=== PATIENT | male | born 1935 | race Caucasian/White ===

== ENCOUNTER 2019-03-31 08:04 | Inpatient (IN) | payer MEDICARE, SELFPAY ==
[2018-07-07 09:25] VITALS: BMI 27.3
[2019-03-19 13:08] VITALS: BP 141/81; PULSE 77; RESP 17; TEMP 36.6; O2SAT 96; BMI 27.6
[2019-03-19 14:00] LABS: Absolute Lymphocyte Count 2.08 X10^3/uL (0.83-4.51); Absolute Neutrophil Count 4.7 X10^3/uL (2.0-7.7); Basophil# 0.03 X10^3/uL; Basophil% 0.4 % (0-1); Eosinophils% 3.8 % (0-5); Hematocrit 41.2 % (40-54); Hemoglobin 13.1 g/dL (13.0-16.5); Lymphocyte # 2.08 X10^3/ul (4.0); Lymphocyte % 26.6 % (19-41); Mean Corp Hgb Conc 31.8 g/dL (32-36); Mean Corpuscular Hgb 27.5 pg (27.0-32.0); Mean Corpuscular Volume 86.6 fL (80-94); Mean Platelet Vol. 10.1 fl (6.2-12.0); Monocyte# 0.71 X10^3/uL; Monocyte% 9.1 % (0-10); NRBC Flagged by Analyzer 0 % (0-5); Neutrophil # 4.68 X10^3/uL (2.7-7.7); Neutrophil % 59.8 % (47-70); Platelet Count 183 K/mm3 (150-450); RBC Distribution Width SD 41.4 fl (35.1-43.9); Red Blood Count 4.76 M/mm3 (4.6-6.2); White Blood Count 7.8 K/mm3 (4.4-11.0)
[2019-03-19 14:13] LABS: Anion Gap 8 (5-15); BUN 18 mg/dL (7-18); BUN/Creat Ratio 15.3 RATIO (10-20); Calcium,Total 9.5 mg/dL (8.5-10.1); Chloride 99 mmol/L (98-107); Creatinine, Serum 1.18 mg/dL (0.70-1.30); EST Glomerular Filtration Rate 63 mL/min (>60); Est Glom Filt Rate - Afr Amer 76 mL/min (>60); Estimated Creatinine Clearance 50.52 ml/min; Glucose 158 mg/dL (74-106); Potassium 4.7 mmol/L (3.5-5.1); Sodium Level 131 mmol/L (136-145)
[2019-03-29 13:56] LABS: Sodium Level 133 mmol/L (136-145)
[2019-03-31] VITALS (12 sets, daily range): BP systolic 127–147; BP diastolic 73–87; PULSE 48–89; RESP 16–18; TEMP 35.5–36.7; O2SAT 95–100; BMI 27.6
[2019-03-31] MEDS: Acetaminophen 500 MG Tablet 1000 MG PO ×2 (08:52→22:34)
[2019-03-31] MEDS: Gabapentin 600 MG Tablet PO (08:53)
[2019-03-31] MEDS: Magnesium Sulfate 4gm/100mL 4 GM/100 ML IV.SOLN. IV (08:54)
[2019-03-31] MEDS: Lactated Ringers 1,000 ML 75 ML IV (09:02)
[2019-03-31 09:20] LABS: Bedside Glucose 189 mg/dL (70-110)
[2019-03-31] MEDS: Insulin Lispro 100 UNIT/ML INSULN.PEN SC ×3 (09:29→22:34)
[2019-03-31] MEDS: Cefazolin 2 GM in 0.9% Normal Saline 100 ML IV (11:04)
[2019-03-31] MEDS: dexAMETHasone 10 MG/ML Vial IV (11:37)
--- NOTE | 2019-03-31 12:48 | PCM.OPRPT ---
Report of Operation Date of Procedure: 03/31/19 Pre-Operative Diagnosis: Left shoulder cuff tear arthropathy Post-Operative Diagnosis: Left shoulder cuff tear arthropathy Surgery/Procedure Performed:: Left reverse total shoulder replacement double cut off saw operator: Jaylan Quezada Type of Anesthesia:: General Anesthesiologist: Evelio Mariscal Special Medications: 2 g Ancef, 1 g TXA at incision, 1 g TXA closure, 10 mg Decadron, joint cocktail (5 mg Duramorph, 30 mL of 0.5% Ropivicaine, 1000 units of epinephrine, 30 mg of Toradol), vancomycin IV Specimen's removed: Bony cuts Estimated Blood Loss (mL): 150 Fluids Replaced: 800 ml crystalloid Description of Procedure: Components used 1. Scott reunion glenoid baseplate 2. Plummer reunion 36 mm, 2 mm lateralized and 2 mm eccentric Glenosphere 3. Scott 36 mm, 4 mm humeral liner 4. Scott reunion humeral tray 4mm 5. Reunion short press-fit 15 mm size stem Brief history/Operative indications: 83 yo M with history of l shoulder pain and cuff tear arthropathy. Patient failed conservative measures as mentioned in the H&P. After discussion of risk and benefits of reverse total shoulder replacement including but not limited to blood loss, DVTs, PEs, nerve vessel damage, infection, general risk of anesthesia including loss of life, instability and stiffness patient demonstrating understanding wish to proceed was able to sign informed consent. Medical clearance was obtained. Procedure: On the date of the procedure, patient's L upper extremity was marked in the preoperative area. Patient was taken back to the operating room where they were placed on the table in the supine position. Anesthesia assumed control of the C-spine and airway, then administered anesthetic. All bony prominences were identified well-padded, the head was secured and the patient was placed in the beachchair position at about 35? inclination. Anesthesia remained in control of the C-spine airway throughout the remainder of the procedure. Patient was then appropriately fastened to the table and the L upper extremity was prepped in a sterile fashion. The surgeons then scrubbed. Upon reentering the room, the L upper extremity was draped in a sterile fashion and the incision was marked out. Timeout was called, everyone agreed upon the side, the site, the procedure to be performed, patient identity and antibiotics given. Incision was taken down through skin and subcutaneous tissue, fat down to fascia. The stripe of the deltopectoral interval and cephalic vein were identified and blunt dissection was used to retract the deltoid. The cephalic vein was retracted laterally. Clavipectoral fascia was then incised and a cobra retractor was placed in the wound. The proximal one third of the pectoralis major insertion was released. Pectoralis tendon insertion was used to tenodesed the biceps tendon which was identified in the bicipital groove. Tenodesis was done with #1 Vicryl. Proximally we followed the biceps tendon after transecting it into the rotator interval. The rotator interval was split and the arm was externally rotated. The split was 1 cm medial to the bicipital groove. Subscapularis tendon was released. We released down the anterior portion of the humeral head and a calix elevator was used to release the inferior portion of the humeral head. The arm was externally rotated and the shoulder was dislocated. The humeral head was cut in anatomic version using the articular surface. Once his humeral head cut was made humerus was retracted out of the way and the glenoid was exposed. After exposing the glenoid, the labrum and the remaining proximal biceps were debrided. At this time we are able to view the entire outer edge of the glenoid. A central pin was placed we sequentially reamed over this central pin to 36mm. Once this was completed the central pedicle was drilled. The glenoid baseplate was impacted into place. Wound was closely irrigated out with normal saline we then drilled sequentially for 2 screws. Screws were placed superiorly and inferiorly and tightened down the screws. 36 mm glenosphere was impacted into place engaging the Mallory taper. Attention was then turned towards the humerus. The humerus was again externally rotated exposing the proximal portion of the humerus. Central canal finder was then used to open up the canal. We reamed to a 15mm reamer. We then broached to a 15mm stem. We trialed the 4mm liner, with the 4mm humeral baseplate. We obtained an adequate reduction at this time with a nice stable shoulder. Good internal rotation to the gluteus, forward elevation to 140?, external rotation to 20?. Final components were then assembled on the back table, trials were removed and the wound was copiously irrigated with normal saline after dislocating the shoulder. Once the final components were assembled they were impacted into place. Shoulder was then reduced and found to be stable with good range of motion. Subscapularis tendon repaired using #2 FiberWire. The wound was then lavaged for one minute with Irricept then copiously irrigated out with a 1 L normal saline lavage. The deltopectoral fascia was then closed using #1 Vicryl skin was closed using 2-0 Vicryl interrupted sutures and final skin closure was done with 3-0 Monocryl. Steri-Strips are placed for final skin closure. Sterile dressing was placed patient was then placed in a sling and awakened by anesthesia. Patient was then transferred to the PACU for recovery. Postoperative plan: Patient will be admitted to the hospital overnight. They will get physical therapy starting in 2 weeks with normal postoperative regimen. Patient will be placed on 325 mg aspirin daily for DVT prophylaxis. The first postoperative appointment will be in 2 weeks for wound check and initiation of phase 1 physical therapy. Grafts/Implants Used: Plummer reunion reverse total shoulder - Complications No intraoperative complications - Admit VTE Documentation VTE Present on Admission: No VTE Mechan Device Prophylaxis: SCD's, Knee High NOREEN Hose VTE Pharm Prophylaxis ordered?: Yes
[2019-03-31] MEDS: Lactated Ringers 1,000 ML 999 ML IV (13:15)
[2019-03-31 13:50] LABS: Bedside Glucose 135 mg/dL (70-110)
--- NOTE | 2019-03-31 13:52 | RAD_ITS ---
STUDY: X-RAY - LEFT SHOULDER REASON FOR EXAM: Male, 83 years old. Left shoulder replacement. TECHNIQUE: 2 view(s) of the shoulder. COMPARISON: None. FINDINGS: The patient is status post reverse shoulder replacement. There is good alignment. Postoperative soft tissue changes. RAD/Shoulder min 2 Views IMPRESSION: Status post left reverse shoulder replacement. There is good alignment. Postoperative soft tissue changes. Electronically Signed: Daniel Greenberg, at 14:22 EDT , Service support ,
[2019-03-31] MEDS: Lactated Ringers 1,000 ML 125 ML IV ×2 (14:30→18:44)
[2019-03-31] MEDS: metFORMIN HCl 1,000 MG Tablet 1000 MG PO (17:07)
[2019-03-31] MEDS: Ensure Surgery 237 ML LIQUID PO (17:08)
[2019-03-31 17:56] LABS: Bedside Glucose 179 mg/dL (70-110)
[2019-03-31] MEDS: Cefazolin 1 GM/50 ML BAG IV (18:46)
[2019-03-31] MEDS: Senna/Docusate Sodium 1 Tablet 2 TABLET PO (22:34)
[2019-03-31 23:51] LABS: Bedside Glucose 216 mg/dL (70-110)
[2019-04-01 00:30] VITALS: BP 128/90; PULSE 98; RESP 16; TEMP 36.6; O2SAT 95
[2019-04-01] MEDS: Famotidine 20 MG Tablet PO (01:55)
[2019-04-01] MEDS: Pantoprazole Sodium 20 MG Tablet PO (01:57)
[2019-04-01] MEDS: Ondansetron 4 MG/2 ML Vial IV (02:57)
[2019-04-01] MEDS: Cefazolin 1 GM/50 ML BAG IV (03:01)
[2019-04-01] MEDS: proMETHazine 25 MG/ML Syringe 12.5 MG IM (03:46)
[2019-04-01 05:31] LABS: Hemoglobin 12.1 g/dL (13.0-16.5); Mean Corp Hgb Conc 31.8 g/dL (32-36); Mean Corpuscular Hgb 27.1 pg (27.0-32.0); Mean Corpuscular Volume 85.2 fL (80-94); Mean Platelet Vol. 10.4 fl (6.2-12.0); Platelet Count 158 K/mm3 (150-450); RBC Distribution Width CV 12.9 % (11.6-14.6); RBC Distribution Width SD 39.9 fl (35.1-43.9); Red Blood Count 4.46 M/mm3 (4.6-6.2)
[2019-04-01 05:52] LABS: Anion Gap 9 (5-15); BUN 22 mg/dL (7-18); BUN/Creat Ratio 20.4 RATIO (10-20); Calcium,Total 8.6 mg/dL (8.5-10.1); Chloride 99 mmol/L (98-107); Creatinine, Serum 1.08 mg/dL (0.70-1.30); EST Glomerular Filtration Rate 69 mL/min (>60); Est Glom Filt Rate - Afr Amer 84 mL/min (>60); Glucose 173 mg/dL (74-106); Potassium 4.6 mmol/L (3.5-5.1); Sodium Level 132 mmol/L (136-145)
[2019-04-01 06:30] VITALS: BP 123/62; PULSE 72; RESP 16; TEMP 36.9; O2SAT 91
[2019-04-01] MEDS: Acetaminophen 500 MG Tablet 1000 MG PO (06:38)
[2019-04-01] MEDS: Insulin Lispro 100 UNIT/ML INSULN.PEN SC (06:39)
[2019-04-01 07:56] LABS: Bedside Glucose 196 mg/dL (70-110)
--- NOTE | 2019-04-01 08:55 | PCM.PN.ORT ---
Subjective: The patient was sitting in bed upon examination. Patient denies any chest pain, shortness of breath, dizziness, lightheadedness, nausea or vomiting, or calf pain. Pain is controlled on medications. No adverse overnight events. Patient states pain is very well controlled on his left shoulder. Patient did overnight have nausea and vomiting but feels much better today since resuming his meds. Patient also had to be straight cathed due to urinary retention. Patient denies any prostate or urinary complications at home and has not treated. However upon discussion, patient does state he occasionally wakes up at night to use the restroom. Objective: Vital signs stable, afebrile Dressing is clean, dry, intact Ultra-sling fitting appropriately Sensation intact to axillary, radial, median, and ulnar distribution Motor intact to AIN, PIN, and ulnar nerve - Physical Exam General: Alert, Oriented x3, Cooperative, No apparent distress Vital Signs Temp Pulse Resp BP Pulse Ox 98.4 F 72 16 123/62 H 91 04/01/19 06:30 04/01/19 06:30 04/01/19 06:30 04/01/19 06:30 04/01/19 06:30 Oxygen Flow Rate (L/min) 6 Oxygen Delivery Method Room Air Weight: 89.7 kg Body Mass Index (BMI) 27.6 Finger Stick Blood Glucose 135 Intake and Output for Last 24 Hours 03/30/19 03/31/19 04/01/19 23:59 23:59 23:59 Intake Total 3815.84 / 4115.84 1566.67 / 1566.67 Output Total 1550 / 1550 Balance 3815.84 / 3065.84 16.67 / 16.67 Laboratory Tests Past 24 Hrs 04/01/19 04/01/19 04:48 04:48 WBC 14.0 H RBC 4.46 L Hgb 12.1 L Hct 38.0 L MCV 85.2 MCH 27.1 MCHC 31.8 L RDW Std Deviation 39.9 RDW Coeff of Brianna 12.9 Plt Count 158 MPV 10.4 Sodium 132 L Potassium 4.6 Chloride 99 Carbon Dioxide 24.0 Anion Gap 9 BUN 22 H Creatinine 1.08 Estim Creat Clear Calc 55.20 Est GFR (MDRD) Af Amer 84 Est GFR (MDRD) Non-Af 69 BUN/Creatinine Ratio 20.4 H Glucose 173 H Calcium 8.6 POC Glucose 04/01/19 03/31/19 03/31/19 06:34 22:31 17:01 POC Glucose 196 H 216 H 179 H 03/31/19 03/31/19 13:48 08:34 POC Glucose 135 H 189 H Medical Necessity - Tobacco Use Smoking Status: Former smoker Assessment/Plan All Active Problems (Last Reviewed 07/07/18 @ 09:47 by Zain Meyer MD) History of total hip replacement (Resolved) 1. S/P left reverse total shoulder arthroplasty POD #1 2. Continue Pain Medications: Tylenol and OxyIR 3. DVT Prophylaxis: Aspirin 325 mg once daily 2 weeks postoperatively 4. PT/OT: No range of motion left shoulder. We will begin outpatient formal physical therapy 2 weeks postoperatively to begin phase 1. Okay to work on elbow, wrist, hand range of motion and pendulum exercises only. Continue with UltraSling at all times. 5. H & H: 12.1/38.0, asymptomatic 6. Reactive leukocytosis: Currently 14.0, afebrile. Patient did receive Decadron intraoperatively 7. Urinary retention: Patient did require straight catheterization yesterday. Discussed with nursing and they are going to bladder scan. Patient does not have significant history of any urinary retention or prostate issues. If patient is able to urinate on his own plan will be for discharge home today. 8. Encouraged Incentive Spirometry 9. Disposition: Plan will be for possible discharge home today if patient is able to urinate on his own. If he has not, medication may need to be required. I did discuss with the patient I recommend he follow-up with his primary care physician with regards to the postoperative urinary retention. Patient states his pain is very well controlled and does not want to use any narcotic medication. I explained to him that I will give a prescription but he does not have to fill it if it is not required. He will follow-up per postop instructions. He will begin postoperative physical therapy after his 2-week visit.
[2019-04-01 08:59] VITALS: PULSE 80
--- NOTE | 2019-04-01 09:05 | PCM.DC.ORTHO ---
Discharge Diet: 1800 Calorie Control Diet Discharge Activity: May Not Drive May shower in (days): 1 - Turn dressing away from water Ice area for (Minutes): 20 - Every 1-2 hours while awake Weight Bearing Status: No weight bearing - Left upper extremity Call your doctor if your incision/area has: Continuous Slow Oozing, Sudden Increased Bleeding, Increased Pain/ Swelling, Increased Redness, Foul Smelling Discharge Call your doctor if you observe: Fever of 101 or Higher, Coldness, Increased Pain, Numbness or Tingling, Change in Color Remove Dressing in (days):: 4 - Okay to remove on April 05, 2019 Additional Instructions: Follow-up per orthopedic postop instructions DVT/blood clot prevention: You should take aspirin 325 mg once daily with food for 2 weeks postoperatively. While taking regular dose 325 aspirin you should not be taking her 81 mg aspirin. Allergies/Adverse Reactions: Allergies Proton Pump Inhibitors Allergy (Verified 03/31/19 08:21) Other hyponatremia Medications to take at Discharge metFORMIN HCl [Glucophage] 1,000 mg PO BIDCM 06/02/13 lisinopril 2.5 mg tablet 10 mg PO QDAY 07/11/17 Baclofen 10 mg PO TID PRN PRN 03/19/19 Lansoprazole [Prevacid] 15 mg PO DAILY 03/19/19 Magnesium Oxide [Magnesium] 250 mg PO DAILY 03/19/19 Acetaminophen [Tylenol] 1,000 mg PO Q8 #100 tab 04/01/19 Aspirin 325 mg PO DAILY@0800 #14 tab 04/01/19 Oxycodone [Oxyir] 5 mg PO Q4H PRN PRN 3 Days #20 tab 04/01/19 Senna/Docusate Sodium [Senokot-S] 2 tab PO BID #20 tab 04/01/19 The following prescriptions were given: Aspirin 325 mg PO DAILY@0800 #14 tab Prescription Printed Oxycodone [Oxyir] 5 mg PO Q4H PRN PRN 3 Days #20 tab PRN Reason: Mod-Severe Pain (4-04/29) Prescription Printed Senna/Docusate Sodium [Senokot-S] 2 tab PO BID #20 tab Prescription Printed Acetaminophen [Tylenol] 1,000 mg PO Q8 #100 tab Prescription Printed Orders to be completed after discharge: Sodium Level Time Frame: 03/26/19, Facility: [facility], Location: Laboratory Primary Care Physician: Avery Joseph MD [Primary Care Provider] - Please follow up with your Primary Care Physician in: f/u in 1 week for urinary retention Test Results: Test results from this visit will be discussed in further detail at your follow-up appointment, if applicable. Please Follow Up With: Ade Jimenez Physical Therapy When: 04/14/19 @ 10:30 am Please Follow Up With: Sanchez Lee PA-C When: 04/14/19 @ 9:30 am
[2019-04-01] MEDS: Aspirin 325 MG Tablet PO (09:07)
[2019-04-01] MEDS: metFORMIN HCl 1,000 MG Tablet 1000 MG PO (09:08)
[2019-04-01] MEDS: Senna/Docusate Sodium 1 Tablet 2 TABLET PO (09:09)
[2019-04-01] MEDS: Lisinopril 10 MG Tablet PO (09:10)
[2019-04-01] MEDS: Ensure Surgery 237 ML LIQUID PO (09:12)
--- NOTE | 2019-04-01 10:00 | CASEMGMT ---
RN NOHELIA Face to Face with patient for initial transition planning/care coordination assessment. RN CM introduced self and role at [facility]. Patient sitting in chair, alert and oriented. Patient willing to participate in assessment and is able to answer all questions appropriately. Care providers, pharmacy, and demographics verified. Patient wishes to discharge home, denies need for home health at this time. Patient states he has no further needs or concerns at this time. CM to follow for discharge planning needs that may arise. PCP: Jake Specialists: Mauricio Crowley Pharmacy: [facility] Insurance: [facility] Prescription Benefit: yes Living Will/HPOA: yes, but not sure who is HPOA LNOK: Living Arrangements: Patient lives with in 1 story home with no steps to enter Transportation: DME/HHC: Patien denies DME in the home. Denies previous HHC Disposition Plan: Patient to discharge home with follow-up plans in and family support. Heydi SON, RN, CM
[2019-04-01 11:31] VITALS: BP 122/72; PULSE 56; RESP 14; TEMP 37; O2SAT 95
== END 2019-04-01 11:47 | disposition home or self-care (01) | DRG 483 ==
LOC: ACINP 08:06 → MS3 10:51
PROVIDERS: Admitting Provider Specialist; Family Provider Family Medicine; PCP Family Medicine; Referring Provider Specialist; Visit Provider Specialist
PROC: 0RRK00Z Replacement of Left Shoulder Joint with Reverse Ball and Socket Synthetic Substitute, Open Approach (ICD-10-PCS; CPT 23472; principal; 2019-03-31 10:15)
DX: S46.012A Strain of muscle(s) and tendon(s) of the rotator cuff of left shoulder, initial encounter (principal); X58.XXXA Exposure to other specified factors, initial encounter; M19.212 Secondary osteoarthritis, left shoulder; D72.828 Other elevated white blood cell count; K21.9 Gastro-esophageal reflux disease without esophagitis; I10 Essential (primary) hypertension; E11.9 Type 2 diabetes mellitus without complications; R33.9 Retention of urine, unspecified; Z79.84 Long term (current) use of oral hypoglycemic drugs; Z79.82 Long term (current) use of aspirin; Z79.899 Other long term (current) drug therapy; Z87.891 Personal history of nicotine dependence
CPT/HCPCS: 36415; 73030; 80048; 82962; 84295; 85025; 85027; 87077; 87081; 97166; 97802; 99251; C1776; J7050; J7120; G0463; J2405

== ENCOUNTER → 2020-11-20 11:16 | Outpatient (CLI) | payer MEDICARE, SELFPAY ==
[2020-10-18 09:25] VITALS: BMI 27.4
[2020-11-20 15:23] LABS: Absolute Lymphocyte Count 1.54 X10^3/uL (0.83-4.51); Absolute Neutrophil Count 3.4 X10^3/uL (2.0-7.7); Basophil# 0.04 X10^3/uL; Basophil% 0.7 % (0-1); Eosinophil# 0.17 X10^3/uL; Eosinophils% 2.9 % (0-5); Hematocrit 42.1 % (40-54); Hemoglobin 13.2 g/dL (13.0-16.5); Lymphocyte # 1.54 X10^3/ul (0.83-4.51); Lymphocyte % 26.4 % (19-41); Mean Corp Hgb Conc 31.4 g/dL (32-36); Mean Corpuscular Hgb 27.8 pg (27.0-32.0); Mean Corpuscular Volume 88.6 fL (80-94); Monocyte# 0.68 X10^3/uL; Monocyte% 11.7 % (0-10); NRBC Flagged by Analyzer 0 % (0-5); Neutrophil # 3.39 X10^3/uL (2.7-7.7); Neutrophil % 58.1 % (47-70); Platelet Count 190 K/mm3 (150-450); RBC Distribution Width CV 12.7 % (11.6-14.6); RBC Distribution Width SD 41.6 fl (35.1-43.9); Red Blood Count 4.75 M/mm3 (4.6-6.2); White Blood Count 5.8 K/mm3 (4.4-11.0)
[2020-11-20 17:48] LABS: ALB/GLOB Ratio 1.3 RATIO (0.9-2.4); AST(SGOT) 23 U/L (15-37); Alanine Aminotransfer ALT/SGPT 22 U/L (16-61); Alkaline Phosphatase 41 U/L (45-117); Anion Gap 10 (5-15); BUN 18 mg/dL (7-18); BUN/Creat Ratio 15.4 RATIO (10-20); Calcium,Total 9.8 mg/dL (8.5-10.1); Chloride 98 mmol/L (98-107); Creatinine, Serum 1.17 mg/dL (0.70-1.30); EST Glomerular Filtration Rate 63 mL/min (>60); Est Glom Filt Rate - Afr Amer 76 mL/min (>60); Glucose 82 mg/dL (74-106); Potassium 4.6 mmol/L (3.5-5.1); Sodium Level 134 mmol/L (136-145)
[2020-11-22 14:09] LABS: RNP Ab <0.2 AI (0.0-0.9); Smith Ab <0.2 AI (0.0-0.9)
[2020-11-22 16:25] LABS: Anti-dsDNA Ab 1 IU/mL (0-9)
== END ==
PROVIDERS: PCP Family Medicine; Referring Provider Internal Medicine Rheumatology; Visit Provider Internal Medicine Rheumatology
DX: M06.4 Inflammatory polyarthropathy (principal); M18.0 Bilateral primary osteoarthritis of first carpometacarpal joints; M17.0 Bilateral primary osteoarthritis of knee; E11.9 Type 2 diabetes mellitus without complications; I10 Essential (primary) hypertension; K21.9 Gastro-esophageal reflux disease without esophagitis; K22.2 Esophageal obstruction; K57.90 Diverticulosis of intestine, part unspecified, without perforation or abscess without bleeding; N40.0 Benign prostatic hyperplasia without lower urinary tract symptoms
CPT/HCPCS: 36415; 80053; 85025; 86225; 86235

== ENCOUNTER 2021-01-05 10:30 | Outpatient (RCR) | payer MEDICARE, SELFPAY ==
[2020-10-18 09:25] VITALS: BMI 27.4
--- NOTE | 2020-12-27 11:48 | HP.PTEVAL_ITS ---
Patient's Visit Information DARWIN GRUBER is a 85 year old M referred to Physical Therapy by DANE GREGG with a diagnosis of Arthralgia, lat epicondylitis. Date of Evaluation: 12/27/20 Physical Therapist: Shankar Brown DPT, OCS, CSCS - Visit Plan Frequency: 2x /Week Duration: 4 Weeks Plan: 2x/week for 4 weeks for... balance and strength ex ankles and lateral/post hip strength, wrist strength. Patient to show us his current program next session and we should add the above ex wtih balance on foam and weight shifts, lateral hip strength, wrist ext strength , ankle strength to his current program to ensure we are covering his problems with his already 3x/week gym workout. 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 Some cream seems to have helped. I am getting older. Got cortizone in R elbow and Dr. Gregg thought therapy would help him walk better. 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 Gets shots every now and then. Gets shots in thumbs sometimes also. No pain currently and the injection really helped . No pain in r elbow in quite some time now. No pain in legs, just feet from neuropathy with little needles and cream has helped significantly even though he has only done it a few times. Working out MWF in [email or web address] gym doing bicycle, leg press and curls, bicep curls and L arm strength as he had surgery and got ex for that. Bench press and shoulder raises. Flyes. One mile walking limited by pain in knees and cannot do that anymore. - Objective Posture is forward head and hunched into thoraci flexion, can correct for the most part with VC but default is forward flexed. L UE AROM limited in shoulder to 80 fexion which is normal fo rhim due to med history. R shoulder is full, elbows have some OA and limited ext by 10 degrees or so. Wrist motion is full, There is mild tenderness in wrist ext muscle belly on R but nothing at the epicondyl and it is feeling good with muscle contractions at wrist today with 4/5 ext adn flexion no pain. elbow flex and ext 4-, R shoulder flexion 4-. reflexes LE 0/3 patella and achilles. Sensation LE WNL to gross light touch. coordination shows min deificts to reciprocal toe and heel tap. AROM LE WFL but obvious tightness in gastroc and HS adn hip flexors/quads. Strength LE hip abd and ext 4-, flexion 4. knee flexiona dn ext 4- B. ankles DF and PF 3+ and ev/inv 3+. ROMberg 30 eo and 30 ec. - Balance Scores Functional Gait Assessment Score: 26 % Disability: 13.3400 - Goals Goal 1:: I approp ex for managemnt of condition Goal Time Frame: 4-6 Weeks Goal 2:: Pt feel 50% more confident in mobility without increased pain. Goal Time Frame: 4-6 Weeks - Rehabilitation Potential Physical Therapy Diagnosis: arthralgia, Rehabilitation Potential: Fair - Anticipated Interventions Patient/Client Instruction: Educate patient on: Condition For the Purpose of:: To improve muscle performance and motor function Therapeutic Exercise to Include: Strength training, Balance training, Flexibilty training For the Purpose of:: To improve muscle performance and motor function, To improve gait and locomotor functions Thank you for the opportunity to evaluate your patient. For Medicare and Medicare HMO plans, please review the plan of care and approve it. It will need to be FAXED BACK to us at [phone] for Medicare purposes. For Medicare only, by signing this I certify the plan of care. Please let me know if there are questions or concerns regarding this plan of care. Physician Signature: Date:
--- NOTE | 2021-03-01 12:16 | HP.PT.NRP ---
DARWIN GRUBER was seen in my office for initial evaluation on 12/27/20. The following Plan of Care was established for this patient: Initial Frequency: 2x /Week Initial Duration: 4 Weeks Patient/Client Instruction: Educate patient on: Condition For the Purpose of:: To improve muscle performance and motor function Therapeutic Exercise to Include: Strength training, Balance training, Flexibilty training For the Purpose of:: To improve muscle performance and motor function, To improve gait and locomotor functions This patient was last seen in our office 01/05/21. Pertinent comments regarding their Physical therapy will appear below: Pt seen 3 visits of plan of care. He was to f/u in early January as needd but did not schedule or attend. at this point, I will discontinue him from my care. At this point I will be discontinuing this patient from physical therapy. I would be happy to see this patient again in the future if found appropriate by the physician. Thank you! Shankar Brown, DPT, OCS, CSCS Balance/Gait/Functional tests - Balance/Special Test Scores Functional Gait Assessment Score: 26 % Disability: 13.3400 Lower Extremity Functional Score: 64
== END 2021-01-05 19:00 | disposition home or self-care (01) ==
LOC: PT 10:30
PROVIDERS: PCP Family Medicine
DX: M25.50 Pain in unspecified joint (principal); M77.11 Lateral epicondylitis, right elbow
CPT/HCPCS: 97110; 97162

== ENCOUNTER → 2021-02-12 10:11 | Outpatient (CLI) | payer MEDICARE, SELFPAY ==
[2020-10-18 09:25] VITALS: BMI 27.4
[2021-02-12 12:23] LABS: Absolute Lymphocyte Count 1.53 X10^3/uL (0.83-4.51); Absolute Neutrophil Count 3.4 X10^3/uL (2.0-7.7); Basophil# 0.04 X10^3/uL; Basophil% 0.7 % (0-1); Eosinophil# 0.19 X10^3/uL; Eosinophils% 3.4 % (0-5); Hematocrit 41.6 % (40-54); Hemoglobin 13.2 g/dL (13.0-16.5); Lymphocyte # 1.53 X10^3/ul (0.83-4.51); Lymphocyte % 27.2 % (19-41); Mean Corp Hgb Conc 31.7 g/dL (32-36); Mean Corpuscular Hgb 28.9 pg (27.0-32.0); Mean Corpuscular Volume 91.2 fL (80-94); Mean Platelet Vol. 10.3 fl (6.2-12.0); Monocyte# 0.48 X10^3/uL; Monocyte% 8.5 % (0-10); NRBC Flagged by Analyzer 0 % (0-5); Neutrophil # 3.36 X10^3/uL (2.7-7.7); Neutrophil % 59.8 % (47-70); Platelet Count 174 K/mm3 (150-450); RBC Distribution Width CV 12.9 % (11.6-14.6); RBC Distribution Width SD 43.2 fl (35.1-43.9); Red Blood Count 4.56 M/mm3 (4.6-6.2); White Blood Count 5.6 K/mm3 (4.4-11.0)
[2021-02-12 12:43] LABS: ALB/GLOB Ratio 1.2 RATIO (0.9-2.4); AST(SGOT) 22 U/L (15-37); Alanine Aminotransfer ALT/SGPT 24 U/L (16-61); Albumin, Serum 3.8 g/dL (3.2-5.0); Alkaline Phosphatase 38 U/L (45-117); Anion Gap 6 (5-15); BUN 19 mg/dL (7-18); BUN/Creat Ratio 17.4 RATIO (10-20); Calcium,Total 9.3 mg/dL (8.5-10.1); Chloride 99 mmol/L (98-107); Creatinine, Serum 1.09 mg/dL (0.70-1.30); EST Glomerular Filtration Rate 68 mL/min (>60); Est Glom Filt Rate - Afr Amer 83 mL/min (>60); Globulin 3.1 g/dL (2.2-4.2); Glucose 147 mg/dL (74-106); Potassium 4.3 mmol/L (3.5-5.1); Protein, Total 6.9 g/dL (6.4-8.2); Sodium Level 131 mmol/L (136-145)
== END ==
PROVIDERS: PCP Family Medicine; Referring Provider Internal Medicine Rheumatology; Visit Provider Internal Medicine Rheumatology
DX: M06.4 Inflammatory polyarthropathy (principal); M18.0 Bilateral primary osteoarthritis of first carpometacarpal joints; R76.8 Other specified abnormal immunological findings in serum; Z79.899 Other long term (current) drug therapy
CPT/HCPCS: 36415; 80053; 85025

== ENCOUNTER → 2021-04-20 15:16 | Outpatient (CLI) | payer MEDICARE, SELFPAY ==
[2021-04-20 17:45] LABS: Absolute Lymphocyte Count 1.19 X10^3/uL (0.83-4.51); Absolute Neutrophil Count 4.9 X10^3/uL (2.0-7.7); Basophil# 0.04 X10^3/uL; Basophil% 0.6 % (0-1); Eosinophil# 0.21 X10^3/uL; Eosinophils% 2.9 % (0-5); Hematocrit 40.9 % (40-54); Lymphocyte # 1.19 X10^3/ul (0.83-4.51); Lymphocyte % 16.7 % (19-41); Mean Corp Hgb Conc 31.8 g/dL (32-36); Mean Corpuscular Hgb 29.7 pg (27.0-32.0); Mean Corpuscular Volume 93.6 fL (80-94); Mean Platelet Vol. 10.5 fl (6.2-12.0); Monocyte# 0.77 X10^3/uL; Monocyte% 10.8 % (0-10); NRBC Flagged by Analyzer 0 % (0-5); Neutrophil # 4.91 X10^3/uL (2.7-7.7); Neutrophil % 68.7 % (47-70); Platelet Count 189 K/mm3 (150-450); RBC Distribution Width CV 12.5 % (11.6-14.6); RBC Distribution Width SD 42.8 fl (35.1-43.9); Red Blood Count 4.37 M/mm3 (4.6-6.2); White Blood Count 7.1 K/mm3 (4.4-11.0)
[2021-04-20 18:20] LABS: ALB/GLOB Ratio 1.1 RATIO (0.9-2.4); AST(SGOT) 20 U/L (15-37); Alanine Aminotransfer ALT/SGPT 20 U/L (16-61); Albumin, Serum 3.6 g/dL (3.2-5.0); Alkaline Phosphatase 44 U/L (45-117); Anion Gap 8 (5-15); BUN 18 mg/dL (7-18); BUN/Creat Ratio 13.8 RATIO (10-20); Calcium,Total 9.6 mg/dL (8.5-10.1); Chloride 96 mmol/L (98-107); EST Glomerular Filtration Rate 56 mL/min (>60); Est Glom Filt Rate - Afr Amer 67 mL/min (>60); Globulin 3.2 g/dL (2.2-4.2); Glucose 142 mg/dL (74-106); Potassium 4.2 mmol/L (3.5-5.1); Protein, Total 6.8 g/dL (6.4-8.2); Sodium Level 129 mmol/L (136-145)
== END ==
PROVIDERS: PCP Family Medicine; Referring Provider Internal Medicine Rheumatology; Visit Provider Internal Medicine Rheumatology
DX: M06.4 Inflammatory polyarthropathy (principal); Z79.899 Other long term (current) drug therapy; R76.8 Other specified abnormal immunological findings in serum; M18.0 Bilateral primary osteoarthritis of first carpometacarpal joints; M17.0 Bilateral primary osteoarthritis of knee; E11.9 Type 2 diabetes mellitus without complications; I10 Essential (primary) hypertension; K21.9 Gastro-esophageal reflux disease without esophagitis; K22.2 Esophageal obstruction; K57.90 Diverticulosis of intestine, part unspecified, without perforation or abscess without bleeding; N40.0 Benign prostatic hyperplasia without lower urinary tract symptoms
CPT/HCPCS: 36415; 80053; 85025

== ENCOUNTER → 2021-06-11 10:07 | Outpatient (CLI) | payer MEDICARE, SELFPAY ==
[2021-06-11 12:07] LABS: Absolute Neutrophil Count 3.4 X10^3/uL (2.0-7.7); Basophil# 0.04 X10^3/uL; Basophil% 0.7 % (0-1); Eosinophil# 0.18 X10^3/uL; Eosinophils% 3.3 % (0-5); Hematocrit 40.3 % (40-54); Hemoglobin 12.9 g/dL (13.0-16.5); Lymphocyte % 23.6 % (19-41); Mean Corpuscular Hgb 29.5 pg (27.0-32.0); Monocyte# 0.57 X10^3/uL; Monocyte% 10.3 % (0-10); NRBC Flagged by Analyzer 0 % (0-5); Neutrophil # 3.41 X10^3/uL (2.7-7.7); Neutrophil % 61.9 % (47-70); Platelet Count 181 K/mm3 (150-450); RBC Distribution Width CV 13.2 % (11.6-14.6); RBC Distribution Width SD 43.8 fl (35.1-43.9); Red Blood Count 4.38 M/mm3 (4.6-6.2); White Blood Count 5.5 K/mm3 (4.4-11.0)
[2021-06-11 12:19] LABS: ALB/GLOB Ratio 1.3 RATIO (0.9-2.4); AST(SGOT) 21 U/L (15-37); Alanine Aminotransfer ALT/SGPT 20 U/L (16-61); Albumin, Serum 3.8 g/dL (3.2-5.0); Alkaline Phosphatase 42 U/L (45-117); Anion Gap 6 (5-15); BUN 18 mg/dL (7-18); BUN/Creat Ratio 14.6 RATIO (10-20); Calcium,Total 9.4 mg/dL (8.5-10.1); Chloride 97 mmol/L (98-107); Creatinine, Serum 1.23 mg/dL (0.70-1.30); EST Glomerular Filtration Rate 59 mL/min (>60); Est Glom Filt Rate - Afr Amer 72 mL/min (>60); Globulin 2.9 g/dL (2.2-4.2); Glucose 160 mg/dL (74-106); Potassium 4.5 mmol/L (3.5-5.1); Protein, Total 6.7 g/dL (6.4-8.2); Sodium Level 131 mmol/L (136-145)
== END ==
PROVIDERS: PCP Family Medicine; Referring Provider Internal Medicine Rheumatology; Visit Provider Internal Medicine Rheumatology
DX: M06.4 Inflammatory polyarthropathy (principal); M18.0 Bilateral primary osteoarthritis of first carpometacarpal joints; M17.0 Bilateral primary osteoarthritis of knee; E11.9 Type 2 diabetes mellitus without complications; I10 Essential (primary) hypertension; K21.9 Gastro-esophageal reflux disease without esophagitis; K22.2 Esophageal obstruction; K57.90 Diverticulosis of intestine, part unspecified, without perforation or abscess without bleeding; N40.0 Benign prostatic hyperplasia without lower urinary tract symptoms; R76.8 Other specified abnormal immunological findings in serum; Z79.899 Other long term (current) drug therapy
CPT/HCPCS: 36415; 80053; 85025

== ENCOUNTER 2021-07-24 08:29 | Emergency (ER) | payer MEDICARE, SELFPAY ==
[2021-07-24 08:30] VITALS: BP 179/106; PULSE 70; RESP 15; TEMP 36; O2SAT 99; BMI 27.8
[2021-07-24 08:55] VITALS: O2SAT 96
--- NOTE | 2021-07-24 09:02 | CT_ITS ---
STUDY: CT BRAIN WITHOUT CONTRAST REASON FOR EXAM: Male, 85 years old. Head trauma following a fall. Patient is confused. RADIATION DOSAGE (If Supplied By Facility): CTDIvol = ( 44.99 ) mGy, DLP = ( 779.24 ) mGycm TECHNIQUE: Transaxial CT imaging of the brain was performed without administration of intravenous contrast material. Individualized dose optimization techniques were used for this CT. COMPARISON: No relevant priors. FINDINGS: Normal soft tissue structures. Normal calvarium. There is moderate cerebral atrophy with widening of the extra-axial spaces and ventricular dilatation. There are areas of decreased attenuation within the white matter tracts of the supratentorial brain, consistent with microvascular disease changes. Normal basal ganglia and thalami. Normal brainstem. There is mild cerebellar atrophy. There is no intracranial hemorrhage. There are no findings of an acute ischemic infarction. Normal visualized paranasal sinuses. CT/Brain/Head without Contrast IMPRESSION: Chronic involutional changes of the brain. Electronically Signed: Daniel Greenberg MD at 9:38 EST , Service support ,
--- NOTE | 2021-07-24 09:03 | ED.VIS.FALL ---
HPI HPI - Fall History of Present Illness Chief Complaint: Fall Informant: patient and spouse/S.O. Occured/Mechanism Occurred: Days Mechanism/Context: Yes same level fall and Yes trip Usually ambulates: Walker Pain/Injury Pain Location: none Associated Symptoms Associated Symptoms: Negative for Parasthesias, Weakness, Loss of function, Inability to ambulate, Loss of consciousness and Amnesia Narrative Narrative: 85-year-old male history of [id number] diabetes and rheumatoid arthritis. He and his were at calling hours for family member on Friday evening. When he got up to go the car and as he was getting in the car he fell and struck his left forehead. He had no LOC. said she thinks he has been just not as sharp the last several days. He has had no vomiting. No severe headache. He is not on any blood thinners. He denies any neck pain. He denies any recent illness. He has been eating and drinking at breakfast this morning. He has had no recent hospitalizations. Prior similar symptoms: No Recent Illness/Hospitalization: No PFSH PFSH Medical History Arthritis BPH (benign prostatic hyperplasia) Esophageal stricture Essential (primary) hypertension GERD (gastroesophageal reflux disease) Hyperlipidemia Hypomagnesemia Hyponatremia LVH (left ventricular hypertrophy) Neuropathy Premature ventricular contractions PUD (peptic ulcer disease) Rheumatoid arthritis Type 2 diabetes mellitus without complications Home Medications baclofen 10 mg PO TID PRN PRN 03/19/19 [History Last Taken Unknown] aspirin 81 mg tablet,delayed release 81 mg PO DAILY 07/20/20 [History Last Taken Unknown] ferrous sulfate 140 mg (45 mg iron) tablet,extended release 140 mg PO DAILY 07/20/20 [History Last Taken Unknown] magnesium oxide 500 mg PO DAILY tab 07/20/20 [History Last Taken Unknown] lansoprazole 15 mg capsule,delayed release 15 mg PO DAILY cap 07/03/21 [History Last Taken Unknown] lisinopril 5 mg tablet 5 mg PO DAILY #90 tab 07/03/21 [Rx Last Taken Unknown] metformin 1,000 mg tablet 1,000 mg PO BID tab 07/03/21 [History Last Taken Unknown] pioglitazone 15 mg PO DAILY 07/24/21 [History Last Taken Unknown] Allergy/AdvReac Type Severity Reaction Status Date / Time Proton Pump Inhibitors Allergy Other Verified 07/24/21 08:30 oxycodone AdvReac Other Verified 07/24/21 08:30 Surgical History History of left heart catheterization (11/2003) History of total hip replacement History of total right knee replacement Hx of cholecystectomy Social History Smoking Status: Former smoker ROS ROS ED ROS Narrative None. Review of Systems ROS Unobtainable: Denies due to encephalopathy Constitutional Constitutional ED: Denies fever(s) or subjective Eyes Eyes: Denies blurry vision or change in vision ENT ENT ED: Denies ear pain, rhinorrhea or sore throat Cardiovascular Cardiovascular: Denies chest pain or palpitations Respiratory/Chest Respiratory/Chest: Denies cough, dyspnea or sputum Gastrointestinal Gastrointestinal: Denies abdominal pain, constipation, diarrhea, nausea or vomiting Genitourinary Genitourinary ED: Denies dysuria or hematuria Musculoskeletal Musculoskeletal: Denies arthralgias or myalgias Integumentary Denies abscess or rash Neurologic Neurologic: Denies headache(s) or weakness Psychiatric Psychiatric: Denies depression Endocrine Endocrinology: Denies polyuria Hematologic/Lymphatic Hematologic/Lymphatic: Denies easy bruising Allergic/Immunologic Allergic/Immunologic ED: Denies urticaria EXAM Physical Exam Narrative Exam Narrative: Alert male no acute distress. Vital signs are stable and afebrile. Pulse ox nine 9% on room air no signs hypoxia. Initial blood pressure is elevated 179/106. He does not look septic nor toxic. H EENT exam minor contusion left forehead. Pupils round reactive light. Dentition intact. Scalp nontender no signs of trauma. C-spine and neck nontender. Trachea midline. Normal range of motion. Lungs clear to auscultation bilaterally. Heart regular rhythm rate about 70. Chest were nontender. Abdomen soft nontender. Back nontender. Spine nontender. Pelvic girdle intact. Moving all four extremities. Nontender. No deformity. No edema. Normal associate dean of [employer] strength bilaterally. Normal dorsi plantar flexion. Neurologically he is awake. He is alert. He answers questions and follows commands. He did not know the day of the week but his states that is his baseline and since they have been retired they often do not know the day of the week. He did know the president. He knew it was winter. He knew where he was at. He had normal speech. He had no focal motor deficits. Const Vital Signs: 07/24/21 08:30 07/24/21 08:55 Temperature 96.8 F L Temperature Source Temporal Pulse Rate 70 Respiratory Rate 15 Respiratory Effort Normal Non-Labored Respiratory Depth Normal Respiratory Pattern Normal Blood Pressure 179/106 H Blood Pressure Mean 130 Pulse Ox 99 96 Oxygen Delivery Method Room Air Room Air Positive well nourished and well developed; Negative for obese, cachectic, contractures or unkempt General Appearance ED: well developed and NAD; Negative for unkempt, cachectic or contractures Nutritional Appearance: Negative for cachectic or obese HEENT Denies normocephalic trauma; Negative for atraumatic or tenderness Eyes PERRL and EOMs intact bilaterally Neck full ROM, no lymphadenopathy and supple General: Negative for tenderness Chest Wall inspection of chest normal and palpation of chest normal Cardio regular rate, regular rhythm, S1 normal heart sound, S2 normal heart sound and no murmurs GI non-tender, non-distended and no masses Auscultation: normoactive bowel sounds Palpation: soft; Negative for guarding or rebound tenderness present Back/Spine no CVA tenderness General Back: Negative for CVA tenderness Cervical Spine: Negative for cervical spine tenderness Thoracic Spine / Upper Back: Negative for thoracic spinal tenderness Lumbar Spine / Lower Back: Negative for lumbar spinal tenderness, paraspinal muscle tenderness or straight leg raise negative bilaterally Extremity normal to inspection, full ROM, normal capillary refill, no joint enlargement, no clubbing, cyanosis or edema, no calf tenderness and no pedal edema General Extremety ED: Yes normal exam except as noted; Negative for amputation or atrophy General Extremity: normal exam except as noted; Negative for amputation or atrophy Neuro moves all extremities and no focal motor deficits Neuro Narrative: Older male. No swelling is aware he is. Speaking normally. No facial droop. Normal motor strength. Conversing with his . He knows the season and the president. He does not know the day of the week which is his baseline. He did not know the year or month. Sensorium / Orientation: alert, oriented to person, oriented to place and oriented to time; Negative for orientation impaired, confused, lethargic or stuporous Psych mental status grossly normal Appearance: Negative for unkempt Skin Lesions: no lesions and No lesion noted Rashes: no rashes and No rashes noted Trauma: Negative for abrasion MDM MDM MDM Narrative Medical decision making narrative: 85-year-old male fall with a head injury several days ago. states he might be slightly more confused than his baseline. CAT scan of his brain and screening labs are being obtained. Otherwise exam is benign. Repeat exam patient is doing well at 12:13 PM. We went over his test results. Will be discharged home with his . Follow-up if not improving or return if worse. Lab Data Attestation: I reviewed the patient's lab results. Lab results narrative: CBC shows a white count 6.5. Hemoglobin 13. Platelets 167. Electrolytes sodium 132 gap of 8 BUN of 24 creatinine 1.1. Liver enzymes unremarkable glucose 146. CAT scan of the brain no acute process is read by the radiologist. Reviewed by me. Labs: Laboratory Results - last 24 hr 07/24/21 07/24/21 09:23 09:23 WBC 6.5 RBC 4.41 L Hgb 13.4 Hct 40.1 MCV 90.9 MCH 30.4 MCHC 33.4 RDW Std Deviation 43.2 RDW Coeff of Brianna 13.2 Plt Count 167 MPV 9.6 Immature Gran % (Auto) 0.500 Neut % (Auto) 73.1 H Lymph % (Auto) 15.9 L Lamb % (Auto) 8.5 Eos % (Auto) 1.5 Baso % (Auto) 0.5 Absolute Neuts (auto) 4.7 Absolute Lymphs (auto) 1.03 Nucleated RBC % 0 Sodium 132 L Potassium 4.2 Chloride 95 L Carbon Dioxide 29.0 Anion Gap 8 BUN 24 H Creatinine 1.15 Estim Creat Clear Calc 50.02 Est GFR (MDRD) Af Amer 78 Est GFR (MDRD) Non-Af 64 BUN/Creatinine Ratio 20.9 H Glucose 146 H Calcium 9.5 Total Bilirubin 0.70 AST 21 ALT 22 Alkaline Phosphatase 39 L Total Protein 6.6 Albumin 3.8 Globulin 2.8 Albumin/Globulin Ratio 1.4 Radiography Diagnostic Testing: Clinical Impression(s) from Imaging Studies Brain CT 07/24/21 09:02 IMPRESSION: Chronic involutional changes of the brain. Electronically Signed: Daniel Greenberg MD at 9:38 EST , Service support , Discharge Plan Triage Chief Complaint: Fall ED Provider: Lizandro Richardson Dx/Rx/DC Orders Clinical Impression: Fall, Head injury, History of diabetes mellitus Instructions: ED Head Injury (Adult) Prescriptions: No Action ferrous sulfate 140 mg (45 mg iron) tablet extended release 140 mg PO DAILY RF: 0 aspirin [Adult Aspirin Regimen] 81 mg tablet,delayed release (DR/EC) 81 mg PO DAILY RF: 0 metformin 1,000 mg tablet 1,000 mg PO BID RF: 0 lansoprazole 15 mg capsule,delayed release(DR/EC) 15 mg PO DAILY RF: 0 lisinopril 5 mg tablet 5 mg PO DAILY Qty: 90 RF: 3 baclofen 10 MG tablet 10 mg PO TID PRN PRN (Reason: muscle spasms) RF: 0 magnesium oxide 250 mg magnesium tablet 500 mg PO DAILY RF: 0 pioglitazone 15 mg tablet 15 mg PO DAILY RF: 0 Primary Care Provider: Avery Joseph Referrals: Avery Joseph MD [Primary Care Provider] - 1 Week if not improving Activity Restrictions/Additional Instructions: His labs and CAT scan of his head are okay. There is no acute findings. Plenty of fluids and rest. Follow-up with his doctor if not improving. Return if worse. Disposition Disposition: Home, Self Care
[2021-07-24 09:31] LABS: Absolute Lymphocyte Count 1.03 X10^3/uL (0.83-4.51); Absolute Neutrophil Count 4.7 X10^3/uL (2.0-7.7); Basophil# 0.03 X10^3/uL; Basophil% 0.5 % (0-1); Eosinophils% 1.5 % (0-5); Hematocrit 40.1 % (40-54); Hemoglobin 13.4 g/dL (13.0-16.5); Lymphocyte # 1.03 X10^3/ul (0.83-4.51); Lymphocyte % 15.9 % (19-41); Mean Corp Hgb Conc 33.4 g/dL (32-36); Mean Corpuscular Hgb 30.4 pg (27.0-32.0); Mean Corpuscular Volume 90.9 fL (80-94); Mean Platelet Vol. 9.6 fl (6.2-12.0); Monocyte# 0.55 X10^3/uL; Monocyte% 8.5 % (0-10); NRBC Flagged by Analyzer 0 % (0-5); Neutrophil # 4.74 X10^3/uL (2.7-7.7); Neutrophil % 73.1 % (47-70); Platelet Count 167 K/mm3 (150-450); RBC Distribution Width CV 13.2 % (11.6-14.6); RBC Distribution Width SD 43.2 fl (35.1-43.9); Red Blood Count 4.41 M/mm3 (4.6-6.2); White Blood Count 6.5 K/mm3 (4.4-11.0)
[2021-07-24 09:53] LABS: ALB/GLOB Ratio 1.4 RATIO (0.9-2.4); AST(SGOT) 21 U/L (15-37); Alanine Aminotransfer ALT/SGPT 22 U/L (16-61); Albumin, Serum 3.8 g/dL (3.2-5.0); Alkaline Phosphatase 39 U/L (45-117); Anion Gap 8 (5-15); BUN 24 mg/dL (7-18); BUN/Creat Ratio 20.9 RATIO (10-20); Calcium,Total 9.5 mg/dL (8.5-10.1); Chloride 95 mmol/L (98-107); Creatinine, Serum 1.15 mg/dL (0.70-1.30); EST Glomerular Filtration Rate 64 mL/min (>60); Est Glom Filt Rate - Afr Amer 78 mL/min (>60); Estimated Creatinine Clearance 50.02 ml/min; Globulin 2.8 g/dL (2.2-4.2); Glucose 146 mg/dL (74-106); Potassium 4.2 mmol/L (3.5-5.1); Protein, Total 6.6 g/dL (6.4-8.2); Sodium Level 132 mmol/L (136-145)
[2021-07-24 13:06] VITALS: BP 159/9; PULSE 73; RESP 16; O2SAT 99
== END 2021-07-24 13:06 | disposition home or self-care (01) ==
PROVIDERS: Emergency Provider Emergency Medicine; PCP Family Medicine; Visit Provider Emergency Medicine
DX: S09.90XA Unspecified injury of head, initial encounter (principal); M06.9 Rheumatoid arthritis, unspecified; E11.40 Type 2 diabetes mellitus with diabetic neuropathy, unspecified; Z79.4 Long term (current) use of insulin; W01.0XXA Fall on same level from slipping, tripping and stumbling without subsequent striking against object, initial encounter; Y93.89 Activity, other specified; Y99.8 Other external cause status; Y92.810 Car as the place of occurrence of the external cause; E78.5 Hyperlipidemia, unspecified; I10 Essential (primary) hypertension; M19.90 Unspecified osteoarthritis, unspecified site; Z79.82 Long term (current) use of aspirin; Z79.899 Other long term (current) drug therapy; Z87.891 Personal history of nicotine dependence; Z79.84 Long term (current) use of oral hypoglycemic drugs
CPT/HCPCS: 70450; 80053; 85025; 99283; J7030

== ENCOUNTER 2021-08-31 03:21 | Inpatient (IN) | payer MEDICARE, SELFPAY ==
[2021-08-31] VITALS (16 sets, daily range): BP systolic 129–199; BP diastolic 79–116; PULSE 66–86; RESP 13–20; TEMP 36.1–36.9; O2SAT 92–99; BMI 27.1; BMI 25.2
--- NOTE | 2021-08-31 03:25 | CT_ITS ---
We are attempting to reach an attending provider to discuss findings. An addendum with communication details will be sent when the communication is complete. HISTORY: Neuro deficit, acute, stroke suspected TECHNIQUE: Routine carotid CT angiogram protocol was performed with IV contrast. In addition, images were obtained of the [place]. [place] criteria using the distal ICAs for comparison were used for evaluation of stenoses. 2-D and 3-D reconstructions were reviewed. A radiation dose optimization technique was used for this scan. IV Contrast dosage and agent: 100mL [id number] COMPARISON: Concurrent unenhanced CT brain. FINDINGS: --NECK: AORTIC ARCH AND BRANCHES: No aneurysm, dissection, occlusion or significant stenosis. RIGHT CCA: No occlusion, significant stenosis or dissection. RIGHT ICA: No occlusion, significant stenosis or dissection. LEFT CCA: No occlusion, significant stenosis or dissection. LEFT ICA: No occlusion, significant stenosis or dissection. RIGHT VERTEBRAL ARTERY: No occlusion, significant stenosis or dissection. LEFT VERTEBRAL ARTERY: No occlusion, significant stenosis or dissection. NECK SOFT TISSUES: There are a few subcentimeter low-attenuation cysts versus nodules within thyroid gland. Mild scattered intravenous gas likely secondary to venous cannulation and line placement. LUNG APICES: Clear. BONES: No acute findings. Multilevel degenerative disc space narrowing, endplate osteophytes and facet arthropathy along cervical spine with secondary mild spinal canal stenosis and bilateral neural foraminal stenosis of varying severity. --HEAD: --Anterior circulation: ICAs: No significant stenosis at the intracranial/visualized segments. ACAs: No significant stenosis at the visualized segments. ACOM: Present. MCAs: No significant stenosis at the visualized segments. --Posterior circulation: PCOMs: Small but patent on the right. Nonvisualized on the left. manager primary: No significant stenosis at the visualized segments. BASILAR ARTERY: No significant stenosis. VERTEBRAL ARTERIES: No significant stenosis at the intradural/visualized segments. No evidence of intracranial aneurysm or vascular malformation. CT/STROKE CTA Head AND Neck W/Con IMPRESSION: 1. CTA head and neck with no acute arterial occlusive disease or other acute abnormality. 2. Subcentimeter thyroid nodules and/or cysts. Follow-up as clinically warranted. 3. Multilevel cervical spondylosis. Individualized dose optimization techniques were used for this CT. at 0409 Reported and signed by: Julio C Frankel MD Electronically Signed: Julio C Frankel MD at 4:07 EST ,
--- NOTE | 2021-08-31 03:25 | EKG12_ITS ---
Test Reason : DYSRHYTHMIA Blood Pressure : / mmHG Vent. Rate : 065 BPM Atrial Rate : 065 BPM P-R Int : 168 ms QRS Dur : 114 ms QT Int : 418 ms P-R-T Axes : 050 022 -01 degrees QTc Int : 434 ms Normal sinus rhythm Normal ECG Confirmed by LEXY ESCOBAR, ANTONIO ([id number]), editorial specialist JONE PORTER ([id number]) on 08/31/2021 11:13:21 AM Referred By: Lynn Le Confirmed By:ANTONIO PUGH MD
--- NOTE | 2021-08-31 03:25 | CT_ITS ---
HISTORY: Neuro deficit, acute, stroke suspected EXAMINATION: CT Head Stroke Protocol W/O Contrast Injection TECHNIQUE: Multiple axial images were obtained of the brain without intravenous contrast. A radiation dose optimization technique was used for this scan. IV Contrast dosage and agent: None. COMPARISON: Head CT from 07/24/21 FINDINGS: BRAIN PARENCHYMA: No intra- or extra-axial hemorrhage. No evidence of acute major territorial infarct. No intracranial mass or mass effect. There is stable hypoattenuation of the deep cerebral white matter. Chronic involutional changes again noted. CSF SPACES: Prominent cerebral sulci secondary to involutional changes. No hydrocephalus. Basal cisterns are patent. Intracranial atherosclerotic calcifications. CALVARIUM, SKULL BASE, PARANASAL SINUSES AND MASTOID AIR CELLS: Intact calvarium. No acute findings within imaged paranasal sinuses. Mastoid air cells are well pneumatized. ORBITS: No acute findings. ASPECTS Score for Acute Strokes: 10 CT/STROKE Brain/Head without Cont IMPRESSION: Stable exam. Chronic involutional and white matter changes. No evidence of acute intracranial process. Individualized dose optimization techniques were used for this CT. at 0346 Reported and signed by: Julio C Frankel MD N.B. : The above Results were Read Back by Julio C Frankel MD to Savage Mejía MD, and understanding confirmed on 08/31/2021 03:47:17 (ET). Electronically Signed: Julio C Frankel MD at 3:44 EST ,
[2021-08-31 03:44] LABS: Absolute Lymphocyte Count 1.31 X10^3/uL (0.83-4.51); Absolute Neutrophil Count 7.4 X10^3/uL (2.0-7.7); Basophil# 0.03 X10^3/uL; Basophil% 0.3 % (0-1); Eosinophil# 0.17 X10^3/uL; Eosinophils% 1.8 % (0-5); Lymphocyte # 1.31 X10^3/ul (0.83-4.51); Lymphocyte % 13.6 % (19-41); Mean Corp Hgb Conc 34.1 g/dL (32-36); Mean Corpuscular Hgb 31.3 pg (27.0-32.0); Mean Corpuscular Volume 91.5 fL (80-94); Mean Platelet Vol. 10.1 fl (6.2-12.0); Monocyte# 0.74 X10^3/uL; Monocyte% 7.7 % (0-10); NRBC Flagged by Analyzer 0 % (0-5); Neutrophil # 7.35 X10^3/uL (2.7-7.7); Neutrophil % 76.2 % (47-70); Platelet Count 206 K/mm3 (150-450); RBC Distribution Width CV 13.2 % (11.6-14.6); RBC Distribution Width SD 43.2 fl (35.1-43.9); Red Blood Count 4.48 M/mm3 (4.6-6.2); White Blood Count 9.6 K/mm3 (4.4-11.0)
[2021-08-31 04:04] LABS: International Normalized Ratio 1.1; Prothrombin Time (Protime)PT. 13.8 SECONDS (11.7-14.9)
--- NOTE | 2021-08-31 04:04 | RAD_ITS ---
HISTORY: Neuro deficit, acute, stroke suspected EXAMINATION/TECHNIQUE: XR Chest 1 View AP view COMPARISON: None FINDINGS: LINES/DEVICES: invasive manager leads. LUNGS: No overt pulmonary edema. Mild basilar atelectatic changes. No sizable pleural effusion. No pneumothorax detected. MEDIASTINUM AND CARDIOVASCULAR STRUCTURES: Heart size within normal limits for imaging technique. Central airways and mediastinal contour are unremarkable. BONES AND SOFT TISSUES: Left shoulder arthroplasty hardware. RAD/Chest 1 View IMPRESSION: Mild basilar atelectatic changes. at 0434 Reported and signed by: Julio C Frankel MD Electronically Signed: Julio C Frankel MD at 4:33 EST ,
[2021-08-31 04:05] LABS: Partial Thromboplast Time 29.3 Seconds (24.1-36.2)
[2021-08-31 04:09] LABS: Anion Gap 7 (5-15); BUN 25 mg/dL (7-18); BUN/Creat Ratio 23.1 RATIO (10-20); Calcium,Total 9.7 mg/dL (8.5-10.1); Chloride 100 mmol/L (98-107); Creatinine, Serum 1.08 mg/dL (0.70-1.30); EST Glomerular Filtration Rate 69 mL/min (>60); Est Glom Filt Rate - Afr Amer 83 mL/min (>60); Estimated Creatinine Clearance 53.26 ml/min; Glucose 150 mg/dL (74-106); Potassium 4.2 mmol/L (3.5-5.1); Sodium Level 132 mmol/L (136-145); Thyroid Stim Hormone (TSH) 2.23 uIU/mL (0.358-3.74); Troponin-I HS 12 pg/mL (3.0-78.0)
--- NOTE | 2021-08-31 04:30 | EDS_ITS ---
HPI History of Present Illness Chief Complaint: Neuro S/Sx Narrative Narrative: Patient is an 85-year-old male with past medical history of hypertension and hyperlipidemia as well as diabetes. reports that around 5 PM on August 30 he began acting abnormally/confused and had difficulty ambulating. She states that he did not want to go to the hospital at that time but as the night has progressed he has had worsening of his mental status and has progressed to the point where he cannot answer questions or tell his name and therefore she called EMS. EMS states when they arrived patient was awake but cannot answer any of their questions or follow any other commands. They state he was hypertensive but that his blood sugar was normal and with concern for stroke patient was brought to the hospital for evaluation. Based on the patient's altered mental status he cannot offer any further history. [facility] Medical History Arthritis BPH (benign prostatic hyperplasia) Esophageal stricture Essential (primary) hypertension GERD (gastroesophageal reflux disease) Hyperlipidemia Hypomagnesemia Hyponatremia LVH (left ventricular hypertrophy) Neuropathy Premature ventricular contractions PUD (peptic ulcer disease) Rheumatoid arthritis Type 2 diabetes mellitus without complications Home Medications baclofen 10 mg PO TID PRN PRN 03/19/19 [History Last Taken Unknown] aspirin 81 mg tablet,delayed release 81 mg PO DAILY 07/20/20 [History Last Taken Unknown] ferrous sulfate 140 mg (45 mg iron) tablet,extended release 140 mg PO DAILY 07/20/20 [History Last Taken Unknown] magnesium oxide 500 mg PO DAILY tab 07/20/20 [History Last Taken Unknown] lansoprazole 15 mg capsule,delayed release 15 mg PO DAILY cap 07/03/21 [History Last Taken Unknown] lisinopril 5 mg tablet 5 mg PO DAILY #90 tab 07/03/21 [Rx Last Taken Unknown] metformin 1,000 mg tablet 1,000 mg PO BID tab 07/03/21 [History Last Taken Unknown] pioglitazone 15 mg PO DAILY 07/24/21 [History Last Taken Unknown] Allergy/AdvReac Type Severity Reaction Status Date / Time Proton Pump Inhibitors Allergy Other Verified 08/31/21 03:41 oxycodone AdvReac Other Verified 08/31/21 03:41 Family History (Updated 08/31/21 @ 03:[address] Lynn Le MD) Father GI bleed age 42 secondary to ruptured ulcer. Mother Lupus Denied age 83, had history of Lupus. Surgical History History of left heart catheterization (11/2003) History of total hip replacement History of total right knee replacement Hx of cholecystectomy Social History (Updated 08/31/21 @ 03:[address] Lynn Le MD) household members: spouse Smoking Status: Former smoker alcohol intake: never substance use type: does not use ROS ROS ED Review of Systems ROS Unobtainable: due to mental status EXAM Physical Exam Const Vital Signs: 08/31/21 03:46 08/31/21 03:54 08/31/21 03:55 Temperature 98.2 F Temperature Source Temporal Pulse Rate 73 69 Respiratory Rate 13 17 Blood Pressure 199/92 H 199/92 H Blood Pressure Mean 127 127 Pulse Ox 96 98 96 Oxygen Delivery Method Room Air Room Air Oxygen Flow Rate (L/min) 08/31/21 04:00 08/31/21 04:59 Temperature Temperature Source Pulse Rate 70 76 Respiratory Rate 17 18 Blood Pressure 173/99 H 168/95 H Blood Pressure Mean 123 119 Pulse Ox 97 94 Oxygen Delivery Method Room Air Nasal Cannula Oxygen Flow Rate (L/min) 2 Positive well nourished and well developed General Appearance ED: well developed HEENT Reports moist mucous membranes Eyes PERRL and EOMs intact bilaterally Neck supple Resp normal respiratory effort and clear to auscultation bilaterally Cardio regular rate and regular rhythm Rate: other Other Details: Radial pulses are +2-4 bilaterally are equal and symmetric GI normal to inspection, nondistended, normoactive bowel sounds, non-tender, non- distended and no masses GI Narrative: No voluntary guarding or rigidity no pulsatile mass Auscultation: normoactive bowel sounds Palpation: soft Extremity normal to inspection Psych mental status grossly normal Psych Narrative: Patient is awake however he cannot answer what his name is where he is at or the date. There is no obvious facial droop or extremity weakness noted. No truncal ataxia. He cannot name simple objects and has difficulty following commands indicating aphasia. Therefore patient has a stroke scale score of 4. He received 2 points for his level of consciousness questions and 2 points for his aphasia. Skin no rashes or lesions noted MDM MDM MDM Narrative Medical decision making narrative: Patient presented to the ER awake but unable to comprehend words and follow commands. He did not have any obvious focal weakness or facial droop but he did receive a stroke scale score of 4 for his inability to state his name age and date as well as the fact that he has aphasia and cannot name objects or communicate. A stroke alert was activated and patient received a CT as well as CTA. He was evaluated by the telemetry neurologist. Neurology agrees as the patient's symptoms began at 5 PM and he did not arrive to the ER until after 3 AM that there is no need for TPA as he is outside the window. Telemetry neurology agrees that if the CTA does not show a large vessel occlusion and patient will be safe for continued care at this facility. The CTA revealed no LVO and the patient's lab work revealed no clinically significant findings either. Therefore at this time as his history and exam is consistent with an acute stroke but he is outside the TPA window and he has no LVO he will be kept in our facility for further care. Lab Data Attestation: I reviewed the patient's lab results. Labs: Laboratory Results - last 24 hr 08/31/21 08/31/21 08/31/21 03:35 03:35 03:35 WBC 9.6 RBC 4.48 L Hgb 14.0 Hct 41.0 MCV 91.5 MCH 31.3 MCHC 34.1 RDW Std Deviation 43.2 RDW Coeff of Brianna 13.2 Plt Count 206 MPV 10.1 Immature Gran % (Auto) 0.400 Neut % (Auto) 76.2 H Lymph % (Auto) 13.6 L Bowie % (Auto) 7.7 Eos % (Auto) 1.8 Baso % (Auto) 0.3 Absolute Neuts (auto) 7.4 Absolute Lymphs (auto) 1.31 Nucleated RBC % 0 PT 13.8 INR 1.1 APTT 29.3 Sodium 132 L Potassium 4.2 Chloride 100 Carbon Dioxide 25.0 Anion Gap 7 BUN 25 H Creatinine 1.08 Estim Creat Clear Calc 53.26 Est GFR (MDRD) Af Amer 83 Est GFR (MDRD) Non-Af 69 BUN/Creatinine Ratio 23.1 H Glucose 150 H Calcium 9.7 Ammonia Troponin I High Sens 12 TSH 2.23 08/31/21 04:00 WBC RBC Hgb Hct MCV MCH MCHC RDW Std Deviation RDW Coeff of Brianna Plt Count MPV Immature Gran % (Auto) Neut % (Auto) Lymph % (Auto) Bowie % (Auto) Eos % (Auto) Baso % (Auto) Absolute Neuts (auto) Absolute Lymphs (auto) Nucleated RBC % PT INR APTT Sodium Potassium Chloride Carbon Dioxide Anion Gap BUN Creatinine Estim Creat Clear Calc Est GFR (MDRD) Af Amer Est GFR (MDRD) Non-Af BUN/Creatinine Ratio Glucose Calcium Ammonia 15.0 Troponin I High Sens TSH Radiography Diagnostic Testing: Clinical Impression(s) from Imaging Studies Brain CT 08/31/21 03:25 IMPRESSION: Stable exam. Chronic involutional and white matter changes. No evidence of acute intracranial process. Individualized dose optimization techniques were used for this CT. at 0346 Reported and signed by: Julio C Frankel MD N.B. : The above Results were Read Back by Julio C Frankel MD to Savage Mejía MD, and understanding confirmed on 08/31/2021 03:47:17 (ET). Electronically Signed: Julio C Frankel MD at 3:44 EST , Head/Neck CTA 08/31/21 03:25 IMPRESSION: 1. CTA head and neck with no acute arterial occlusive disease or other acute abnormality. 2. Subcentimeter thyroid nodules and/or cysts. Follow-up as clinically warranted. 3. Multilevel cervical spondylosis. Individualized dose optimization techniques were used for this CT. at 0409 Reported and signed by: Julio C Frankel MD Electronically Signed: Julio C Frankel MD at 4:07 EST , ADDENDUM: 08/31/21 0421 IMPRESSION: 1. CTA head and neck with no acute arterial occlusive disease or other acute abnormality. 2. Subcentimeter thyroid nodules and/or cysts. Follow-up as clinically warranted. 3. Multilevel cervical spondylosis. Individualized dose optimization techniques were used for this CT. at 0409 Reported and signed by: Julio C Frankel MD N.B. : The above Results were Read Back by Julio C Frankel MD to Savage Mejía MD, and understanding confirmed on 08/31/2021 04:14:06 (ET). Electronically Signed: Julio C Frankel MD at 4:07 EST , Chest X-Ray 08/31/21 04:04 IMPRESSION: Mild basilar atelectatic changes. at 0434 Reported and signed by: Julio C Frankel MD Electronically Signed: Julio C Frankel MD at 4:33 EST , Discharge Plan Dx/Rx/DC Orders Clinical Impression: Acute cerebrovascular accident (CVA) Disposition Disposition: Acute Care [facility]
--- NOTE | 2021-08-31 04:58 | PCM.HP.STD ---
HPI - General General Date of Admission: 08/31/21 Date of Service: 08/31/21 Chief Complaint: Aphasia, weakness HPI Narrative The patient is an 85 y/o M w/ PMHx: Nonobstructive CAD, Mild Mitral Valve disease, HTN, HLD, OA, GERD with esophageal strictures/PUD, Rheumatoid arthritis, Diabetes mellitus type II, Chronic anemia/Fe deficiency anemia who presents to the [facility] ED on 08/31/21 with history of recent evaluation 07/24/2021 with history of fall striking his left forehead while getting in the car with no loss of consciousness eventually prompting to bring him in for evaluation secondary to several days of mildly increased confusion above his baseline who now he presents to the [facility] ED on 08/31/21 with history of onset approximately 1700 difficulty following commands, aphasia and potentially right-sided weakness with difficulty walking initially very resistive to his present to the ED however given his worsening status she eventually called EMS prompting ED evaluation. EMS initial evaluation notable for elevated blood pressure but a normal blood sugar. Work-up in the ED included T 98.2, heart rate 73, BP 199/92, respiratory rate 17, 96% on room air, CBC with WC 9.6, hemoglobin 14, platelet 206 without marked shift, unremarkable coags, BMP with sodium 132, BUN/creatinine 25/1.08, glucose 150, TSH 2.23, troponin 12, ammonia 15, CXR with mild bibasilar atelectatic change, EKG with SR without acute evidence of ischemia, CT brain with chronic involutional and white matter changes with no evidence of an acute intracranial process, CTA head and neck with no acute arterial occlusive disease or other acute intracranial findings, subcentimeter thyroid nodules and or cysts, multilevel cervical spondylosis. Stroke alert performed and following evaluation neurology recommended MRI. NIH stroke scale 4, 2 for level of consciousness questions and 2 for aphasia. [facility] Medical History Arthritis BPH (benign prostatic hyperplasia) Esophageal stricture Essential (primary) hypertension GERD (gastroesophageal reflux disease) Hyperlipidemia Hypomagnesemia Hyponatremia LVH (left ventricular hypertrophy) Neuropathy Premature ventricular contractions PUD (peptic ulcer disease) Rheumatoid arthritis Type 2 diabetes mellitus without complications Home Medications baclofen 10 mg PO TID PRN PRN 03/19/19 [History Last Taken Unknown] aspirin 81 mg tablet,delayed release 81 mg PO DAILY 07/20/20 [History Last Taken Unknown] ferrous sulfate 140 mg (45 mg iron) tablet,extended release 140 mg PO DAILY 07/20/20 [History Last Taken Unknown] magnesium oxide 500 mg PO DAILY tab 07/20/20 [History Last Taken Unknown] lansoprazole 15 mg capsule,delayed release 15 mg PO DAILY cap 07/03/21 [History Last Taken Unknown] lisinopril 5 mg tablet 5 mg PO DAILY #90 tab 07/03/21 [Rx Last Taken Unknown] metformin 1,000 mg tablet 1,000 mg PO BID tab 07/03/21 [History Last Taken Unknown] pioglitazone 15 mg PO DAILY 07/24/21 [History Last Taken Unknown] Allergy/AdvReac Type Severity Reaction Status Date / Time Proton Pump Inhibitors Allergy Other Verified 08/31/21 03:41 oxycodone AdvReac Other Verified 08/31/21 03:41 Family History (Updated 08/31/21 @ 03:[address] Lynn Le MD) Father GI bleed age 42 secondary to ruptured ulcer. Mother Lupus Denied age 83, had history of Lupus. Surgical History History of left heart catheterization (11/2003) History of total hip replacement History of total right knee replacement Hx of cholecystectomy Social History (Updated 08/31/21 @ 05:[address] Lynn Le MD) household members: spouse Smoking Status: Never smoker alcohol intake: never substance use type: does not use ROS Review of Systems ROS Unobtainable: due to mental status Vital Signs Vital Signs Vital Signs: 08/31/21 03:46 08/31/21 03:54 08/31/21 03:55 Temperature 98.2 F Temperature Source Temporal Pulse Rate 73 69 Respiratory Rate 13 17 Blood Pressure 199/92 H 199/92 H Blood Pressure Mean 127 127 Pulse Ox 96 98 96 Oxygen Delivery Method Room Air Room Air Weight Weight: 194 lb 14.218 oz Body Mass Index (BMI) 27.1 Physical Exam Narrative Physical Examination: General: Awake, not alert, unable to answer any orientation questions, remains cooperative, seated upright in ED bed, no acute distress. Skin: Normal color, normal turgor, no icterus, no cyanosis. HEENT: AT/NC, EOM L eye appears intact but difficult assessment, patch over R eye with recent cataract surgery, L PRRL, mildly dry MM, no carotid bruits or JVD noted. Lungs: CTA bilaterally, moderate effort, mild decrease BL bases, no rales, ronchi or wheezing. Heart: Regular rate and rhythm; no gallop, rub audible. Abdomen: Soft, NTTP, ND, normal BS, no HSM. Extremities: No cyanosis, clubbing, or edema. Neurological: Patient awake, not alert, unable to answer any orientation questions, cognitive function not baseline intact; pupils equally reactive to light and accommodation, cranial nerves difficult to assess but no obvious facial droop which was noted initially outside of the facility, moving all 4 extremities with no obvious focal deficit, unable to discern any sensation deficits given inability to communicate, significant aphasia notable, difficulty performing [id number] secondary to difficulty with aphasia. Psychiatric: Affect appears agitated, no acute evidence of depressive or anxiety feelings. Results Lab / Micro Data Result Diagrams: 08/31/21 03:35 08/31/21 03:35 Labs: Laboratory Results - last 24 hr 08/31/21 03:35: WBC 9.6, RBC 4.48 L, Hgb 14.0, Hct 41.0, MCV 91.5, MCH 31.3, MCHC 34.1, RDW Std Deviation 43.2, RDW Coeff of Brianna 13.2, Plt Count 206, MPV 10.1, Immature Gran % (Auto) 0.400, Neut % (Auto) 76.2 H, Lymph % (Auto) 13.6 L, Henderson % (Auto) 7.7, Eos % (Auto) 1.8, Baso % (Auto) 0.3, Absolute Neuts (auto) 7.4, Absolute Lymphs (auto) 1.31, Nucleated RBC % 0 08/31/21 03:35: PT 13.8, INR 1.1, APTT 29.3 08/31/21 03:35: Sodium 132 L, Potassium 4.2, Chloride 100, Carbon Dioxide 25.0, Anion Gap 7, BUN 25 H, Creatinine 1.08, Estim Creat Clear Calc 53.26, Est GFR (MDRD) Af Amer 83, Est GFR (MDRD) Non-Af 69, BUN/Creatinine Ratio 23.1 H, Glucose 150 H, Calcium 9.7, Troponin I High Sens 12, TSH 2.23 08/31/21 04:00: Ammonia 15.[address] 08/31/21 03:25 IMPRESSION: Stable exam. Chronic involutional and white matter changes. No evidence of acute intracranial process. Individualized dose optimization techniques were used for this CT. at 0346 Reported and signed by: Julio C Frankel MD N.B. : The above Results were Read Back by Julio C Frankel MD to Savage Mejía MD, and understanding confirmed on 08/31/2021 03:47:17 (ET). Electronically Signed: Julio C Frankel MD at 3:44 EST , Head/Neck CTA 08/31/21 03:25 IMPRESSION: 1. CTA head and neck with no acute arterial occlusive disease or other acute abnormality. 2. Subcentimeter thyroid nodules and/or cysts. Follow-up as clinically warranted. 3. Multilevel cervical spondylosis. Individualized dose optimization techniques were used for this CT. at 0409 Reported and signed by: Julio C Frankel MD Electronically Signed: Julio C Frankel MD at 4:07 EST , ADDENDUM: 08/31/21 0421 IMPRESSION: 1. CTA head and neck with no acute arterial occlusive disease or other acute abnormality. 2. Subcentimeter thyroid nodules and/or cysts. Follow-up as clinically warranted. 3. Multilevel cervical spondylosis. Individualized dose optimization techniques were used for this CT. at 0409 Reported and signed by: Julio C Frankel MD N.B. : The above Results were Read Back by Julio C Frankel MD to Savage Mejía MD, and understanding confirmed on 08/31/2021 04:14:06 (ET). Electronically Signed: Julio C Frankel MD at 4:07 EST , Chest X-Ray 08/31/21 04:04 IMPRESSION: Mild basilar atelectatic changes. at 0434 Reported and signed by: Julio C Frankel MD Electronically Signed: Julio C Frankel MD at 4:33 EST , Assessment & Plan Assessment/Plan (1) Acute cerebrovascular accident (CVA): PLAN: The patient is an 85 y/o M w/ PMHx: Nonobstructive CAD, Mild Mitral Valve disease, HTN, HLD, OA, GERD with esophageal strictures/PUD, Rheumatoid arthritis, Diabetes mellitus type II, Chronic anemia/Fe deficiency anemia who presents to the [facility] ED on 08/31/21 with history of onset approximately 1700 difficulty following commands, aphasia and potentially right-sided weakness with difficulty walking. #1. Aphasia, transient right-sided weakness concerning for Acute CVA: Will admit to PCU, will obtain MRI Brain, ECHO, PT/OT/Speech/Nutrition evaluation per protocol. Will consult Neurology for evaluation once additional work-up as noted is obtained. Will allow permissive HTN, maintain on asa, add low dose statin, obtain AM FLP, will obtain HgbA1c, TSH normal per ED physician, maintian on aspiration and fall precautions. #2. Incidental thyroid nodules: TSH normal level, will need follow-up thyroid ultrasound. #3. Diabetes mellitus type II: Hold oral home regimen, ADA diet, accu checks w/ ISS, hemoglobin A1c requested secondary to #1, nutrition consulted per stroke protocol. #4. Hypertension: We will continue permissive hypertension given presentation, resume home regimen once appropriate, as needed agents per stroke protocol in interim. #5. Hyperlipidemia: Not on regimen, FLP in a.m. #6. Nonobstructive CAD: We will continue aspirin, not on statin with FLP as noted, holding hypertensive regimen per permissive hypertension as noted. #7. Mild mitral valvular disease: 07/28/2020 echocardiogram with normal LV size, moderate upper septal left ventricular hypertrophy, LV systolic function normal, EF 55%, grade 1 ventricular diastolic dysfunction, RV systolic function normal, mild aortic insufficiency. #8. GERD with history esophageal strictures, PUD: We will maintain on PPI. #9. Rheumatoid arthritis: Not on any chronic regimen, encourage continued follow-up with rheumatology as needed. #10. Chronic anemia, iron deficiency new: Admission hemoglobin 14, baseline hemoglobin primarily 12-13, continue iron supplementation and CBC trending. #11. DVT prophylaxis: SCDs, Lovenox. Charges/Coding Visit Charges Inpatient E&M: 45873 Init Hosp L3
[2021-08-31] MEDS: LORazepam 2 MG/ML Syringe 1 MG IV ×2 (05:06→23:50)
[2021-08-31 05:07] LABS: Squamous Epithelial Cells - UA 0 SEEN /hpf (0-5)
[2021-08-31] MEDS: LORazepam 2 MG/ML Syringe 0.5 MG IV (05:27)
[2021-08-31 05:32] LABS: Color, Urine Yellow (Yellow); Glucose, Dipstick 50 mg/dl (Normal); Ketone-Dipstick 5 mg/dl (Negative); Leukocyte Esterase-Dipstick 25 /ul (Negative); Nitrite-Dipstick Negative (Negative); Occult Blood-Urine 10 /ul (Negative); Protein-Dipstick 30 mg/dl (Negative); Specific Gravity, Urine 1.015 (1.002-1.030); Urine Bilirubin Dipstick Negative (Negative); Urine Clarity Clear (Clear); Urine Urobilinogen Normal (Normal)
--- NOTE | 2021-08-31 05:48 | ECHOL_ITS ---
Reason For Study: CVA Procedure This was a limited 2D transthoracic echocardiogram. Limited views were obtained. The study was technically difficult. PT was in constant motion and agitated. Unable to settle and follow directions. Exam was limited to function only. Exam performed portable in patient room. Left Ventricle Normal left ventricle. The estimated ejection fraction is 55-60 %. Right Ventricle Normal right ventricle. Atria Normal left atrium. Normal right atrium. Mitral Valve Normal mitral valve. Tricuspid Valve The tricuspid valve is not well visualized. Aortic Valve Normal aortic valve. Pulmonic Valve The pulmonic valve is not well visualized. Great Vessels Normal aortic root. Pericardium/Pleural No pericardial effusion. MMode/2D Measurements & Calculations LVIDd: 4.4 cm IVSd: 0.84 cm LVIDs: 2.2 cm LVPWd: 1.1 cm FS: 49.2 % ECHO/Echo, Limited Study Interpretation Summary The estimated ejection fraction is 55-60 %. Limited Echo study due to TDS Over all normal Lv systolic function Ordering Physician: Lynn Le Referring Physician: Avery Joseph Performed By: Trisha Mccarthy, CHRIS, RVT
--- NOTE | 2021-08-31 05:48 | MRI_ITS ---
EXAM: MR HEAD WITHOUT INTRAVENOUS CONTRAST CLINICAL INDICATION: CVA TECHNIQUE: Multiplanar and multisequence MR images of the brain were obtained without intravenous contrast. This report was created using [email or web address] report generation technology. COMPARISON: CT head done earlier FINDINGS: BRAIN AND EXTRA-AXIAL SPACES: Chronic involutional and white matter changes. No intra- or extra-axial hemorrhage. No evidence of acute infarct. No intracranial mass or mass effect. There is preservation of the talamantes/white matter interface. Posterior fossa structures are unremarkable. Ventricles are appropriate for age. No hydrocephalus. Basal cisterns are patent. SELLA: Unremarkable. Normal sella turcica, pituitary gland, infundibular stalk, optic chiasm and hypothalamus. AUDITORY SYSTEM: Unremarkable. The internal auditory canals are patent. BONES/JOINTS: Unremarkable. No discrete lytic or blastic abnormalities. SINUSES: Unremarkable as visualized. Clear. MASTOID AIR CELLS: Unremarkable as visualized. Clear. ORBITS: Unremarkable as visualized. Both globes, extraocular muscles, optic nerves and retrobulbar fat appear unremarkable. VASCULATURE: Unremarkable as visualized. Normal flow voids in the major intracranial circulation. MRI/Brain without Contrast IMPRESSION: No acute findings in the head/brain. Electronically Signed: Álvaro Hunter MD at 15:26 EST ,
[2021-08-31] MEDS: 0.9% Normal Saline 1,000 ML 100 ML IV ×2 (06:00→16:14)
[2021-08-31 06:06] LABS: Bacteria RARE /hpf (None Seen); Mucous, Urine 1+ /hpf (<or=2+); Red Blood Cells-Urine 0-5 SEEN /hpf (0-5); White Blood Cells 0-5 SEEN /hpf (0-5)
--- NOTE | 2021-08-31 06:08 | ED.RN ---
WHILE IN ED, PT WAS UNCOOPERATIVE W/CARE. REMOVED IV CATH, PULLING AT TUBES AND WIRES, ATTEMPTING TO GET OUT OF BED AND TANGLING HIS ARMS & LEGS IN THE BED RAILS. UNABLE TO FULLY COMPLETE ASSESSMENT SINCE PT WAS UNABLE/UNWILLING TO PARTICIPATE. FOR PT'S SAFETY, TWO DOSES OF ATIVAN WERE GIVEN DURING HIS ED VISIT.
[2021-08-31] MEDS: 0.9% Saline Lock 10 ML Syringe IV (06:32)
[2021-08-31] MEDS: Haloperidol Lactate 5 MG/ML Vial 1 MG IV ×2 (06:32→20:31)
[2021-08-31 06:46] LABS: Bedside Glucose 150 mg/dL (70-110)
[2021-08-31 07:38] LABS: Absolute Lymphocyte Count 1.39 X10^3/uL (0.83-4.51); Absolute Neutrophil Count 6.4 X10^3/uL (2.0-7.7); Basophil# 0.03 X10^3/uL; Basophil% 0.3 % (0-1); Eosinophils% 1.2 % (0-5); Hematocrit 38.7 % (40-54); Hemoglobin 13.4 g/dL (13.0-16.5); Lymphocyte # 1.39 X10^3/ul (0.83-4.51); Lymphocyte % 16.1 % (19-41); Mean Corp Hgb Conc 34.6 g/dL (32-36); Mean Corpuscular Hgb 31.3 pg (27.0-32.0); Mean Corpuscular Volume 90.4 fL (80-94); Mean Platelet Vol. 9.8 fl (6.2-12.0); Monocyte# 0.65 X10^3/uL; Monocyte% 7.5 % (0-10); NRBC Flagged by Analyzer 0 % (0-5); Neutrophil # 6.41 X10^3/uL (2.7-7.7); Neutrophil % 74.6 % (47-70); Platelet Count 187 K/mm3 (150-450); RBC Distribution Width CV 13.2 % (11.6-14.6); Red Blood Count 4.28 M/mm3 (4.6-6.2); White Blood Count 8.6 K/mm3 (4.4-11.0)
[2021-08-31 08:04] LABS: Hemoglobin A1c 6.1 % (3.8-5.6)
[2021-08-31 08:07] LABS: ALB/GLOB Ratio 1.4 RATIO (0.9-2.4); AST(SGOT) 21 U/L (15-37); Alanine Aminotransfer ALT/SGPT 20 U/L (16-61); Albumin, Serum 3.8 g/dL (3.2-5.0); Alkaline Phosphatase 41 U/L (45-117); Anion Gap 6 (5-15); BUN 21 mg/dL (7-18); BUN/Creat Ratio 21.7 RATIO (10-20); Calcium,Total 9.4 mg/dL (8.5-10.1); Chloride 99 mmol/L (98-107); Cholesterol 109 mg/dL (200); Creatinine, Serum 0.97 mg/dL (0.70-1.30); EST Glomerular Filtration Rate 78 mL/min (>60); Est Glom Filt Rate - Afr Amer 95 mL/min (>60); Estimated Creatinine Clearance 61.11 ml/min; Globulin 2.8 g/dL (2.2-4.2); Glucose 133 mg/dL (74-106); High Density Lipoprotein 47 mg/dL; Potassium 4.1 mmol/L (3.5-5.1); Protein, Total 6.6 g/dL (6.4-8.2); Sodium Level 130 mmol/L (136-145); Triglycerides 47 mg/dL; Very Low Density Lipoprotein 9 mg/dL (5-40)
[2021-08-31] MEDS: Enoxaparin 40 MG/0.4 ML Syringe SC (10:41)
[2021-08-31] MEDS: Lansoprazole 15 MG Capsule.DR PO (10:41)
[2021-08-31] MEDS: Aspirin E.C. 81 MG Tablet PO (10:41)
[2021-08-31] MEDS: Ferrous Sulfate 325 MG Tablet PO (10:41)
[2021-08-31 11:16] LABS: Bedside Glucose 148 mg/dL (70-110)
--- NOTE | 2021-08-31 11:45 | CASEMGMT ---
MOI POZO [employer]AY SUPERVISOR CM to room to meet with pt's for initial transition planning/care coordination assessment. Pt is confused and restless/fidgety in bed. @ bedside. MOI POZO introduced self and role at [facility]. Care providers, pharmacy, and demographics verified/updated at this time. PCP: Jake Specialists: Pt sees doctor @ [facility] for arthritis-- does not remember her name. Dr Meyer--cardiology. Pt also goes to manager scientific or ortho doctor @ [place]-- does not remember his name. Pt is scheduled for nerve conduction study @ [facility] on Friday and states she will call to have this cx'd. Preferred Pharmacy: [facility] Insurance: [facility] Prescription Benefit: Yes Living Will/HPOA: Pt has LW and HPOA, who is his , Chioma LNOK: , Chioma. 3 adult children--all live [facility] Living Arrangements: Lives w/ in one-story home w/one step to enter. Pt was independent w/ADL's and IADL's until sudden onset of symptoms yesterday. Transportation: Pt was driving up until Fri, when he had cataract surgery. drives. DME: Pt has a functioning glucometer, grab bars in bathroom, walker-which he used on occasion when knees were bothering him, and rollator HHC/SNF: No hx of either. states would agreeable to having pt go to a SNF, if needed, as she is unable to take care of him if he remains confused/unable to follow instructions. PLAN: TBD depending on clinical progress and progress w/therapy. Estiven SON RN, CM
--- NOTE | 2021-08-31 12:48 | CASEMGMT ---
SW did not complete a PHQ 9 as patient is confused. Elizabeth To SERVICE SPRINKLER HELPER KAROL
--- NOTE | 2021-08-31 13:53 | PN.HOSP_ITS ---
Documented by User: Marylin Marie ADVERTISING SOLICITOR, ADVERTISING SOLICITOR-C 08/31/21 14:06 Subjective Subjective Patient seen and examined. Confused, restless, agitated. at bedside. Patient unable to follow commands. Objective Data Objective Data Vital Signs: Vital Signs Temp Pulse Resp BP Pulse Ox 98.1 F 85 18 155/107 H 99 08/31/21 10:00 08/31/21 10:00 08/31/21 10:00 08/31/21 10:00 08/31/21 10:00 Oxygen Flow Rate (L/min) 1 Oxygen Delivery Method Room Air Weight: 186 lb 4.65 oz Body Mass Index (BMI) 25.2 Intake & Output: Intake and Output for Last 24 Hours 08/29/21 08/30/21 08/31/21 23:59 23:59 23:59 Intake Total 0 / 0 Output Total 800 / 800 Balance -800 / -800 Lab / Micro Data Result Diagrams: 08/31/21 07:21 08/31/21 07:21 Labs: Laboratory Results - last 24 hr 08/31/21 03:35: WBC 9.6, RBC 4.48 L, Hgb 14.0, Hct 41.0, MCV 91.5, MCH 31.3, MCHC 34.1, RDW Std Deviation 43.2, RDW Coeff of Brianna 13.2, Plt Count 206, MPV 10.1, Immature Gran % (Auto) 0.400, Neut % (Auto) 76.2 H, Lymph % (Auto) 13.6 L, Arthur % (Auto) 7.7, Eos % (Auto) 1.8, Baso % (Auto) 0.3, Absolute Neuts (auto) 7.4, Absolute Lymphs (auto) 1.31, Nucleated RBC % 0 08/31/21 03:35: PT 13.8, INR 1.1, APTT 29.3 08/31/21 03:35: Sodium 132 L, Potassium 4.2, Chloride 100, Carbon Dioxide 25.0, Anion Gap 7, BUN 25 H, Creatinine 1.08, Estim Creat Clear Calc 53.26, Est GFR (MDRD) Af Amer 83, Est GFR (MDRD) Non-Af 69, BUN/Creatinine Ratio 23.1 H, Glucose 150 H, Calcium 9.7, Troponin I High Sens 12, TSH 2.23 08/31/21 04:00: Ammonia 15.0 08/31/21 04:50: Urine Color Yellow, Urine Clarity Clear, Urine pH 7.0, Ur Specific Gurnee 1.015, Urine Protein 30 H, Urine Glucose (UA) 50 H, Urine Ketones 5 H, Urine Occult Blood 10 H, Urine Nitrite Negative, Urine Bilirubin Negative, Urine Urobilinogen Normal, Ur Leukocyte Esterase 25 H, Urine RBC 0-5 SEEN, Urine WBC 0-5 SEEN, Ur Squamous Epith Cells 0 SEEN, Urine Bacteria RARE, Urine Mucus 1+ 08/31/21 06:14: POC Glucose 150 H 08/31/21 07:21: WBC 8.6, RBC 4.28 L, Hgb 13.4, Hct 38.7 L, MCV 90.4, MCH 31.3, MCHC 34.6, RDW Std Deviation 43.0, RDW Coeff of Brianna 13.2, Plt Count 187, MPV 9.8, Immature Gran % (Auto) 0.300, Neut % (Auto) 74.6 H, Lymph % (Auto) 16.1 L, Arthur % (Auto) 7.5, Eos % (Auto) 1.2, Baso % (Auto) 0.3, Absolute Neuts (auto) 6.4, Absolute Lymphs (auto) 1.39, Nucleated RBC % 0 08/31/21 07:21: Sodium 130 L, Potassium 4.1, Chloride 99, Carbon Dioxide 25.0, Anion Gap 6, BUN 21 H, Creatinine 0.97, Estim Creat Clear Calc 61.11, Est GFR (MDRD) Af Amer 95, Est GFR (MDRD) Non-Af 78, BUN/Creatinine Ratio 21.7 H, Glucose 133 H, Calcium 9.4, Total Bilirubin 0.70, AST 21, ALT 20, Alkaline Phosphatase 41 L, Total Protein 6.6, Albumin 3.8, Globulin 2.8, Albumin/Globulin Ratio 1.4, Triglycerides 47, Cholesterol 109, LDL Cholesterol 53, VLDL Cholesterol 9, HDL Cholesterol 47 08/31/21 07:21: Hemoglobin A1c 6.1 H 08/31/21 11:08: POC Glucose 148 H Micro: Microbiology 08/31/21 04:55 Nasal Secretion SARS-CoV-2 Antigen (Rapid) - Final Radiography Diagnostic Testing: Radiology Impression Brain CT 08/31/21 03:25 IMPRESSION: Stable exam. Chronic involutional and white matter changes. No evidence of acute intracranial process. Individualized dose optimization techniques were used for this CT. at 0346 Reported and signed by: Julio C Frankel MD N.B. : The above Results were Read Back by Julio C Frankel MD to Savage Mejía MD, and understanding confirmed on 08/31/2021 03:47:17 (ET). Electronically Signed: Julio C Frankel MD at 3:44 EST , Head/Neck CTA 08/31/21 03:25 IMPRESSION: 1. CTA head and neck with no acute arterial occlusive disease or other acute abnormality. 2. Subcentimeter thyroid nodules and/or cysts. Follow-up as clinically warranted. 3. Multilevel cervical spondylosis. Individualized dose optimization techniques were used for this CT. at 0409 Reported and signed by: Julio C Frankel MD Electronically Signed: Julio C Frankel MD at 4:07 EST , ADDENDUM: 08/31/21 0421 IMPRESSION: 1. CTA head and neck with no acute arterial occlusive disease or other acute abnormality. 2. Subcentimeter thyroid nodules and/or cysts. Follow-up as clinically warranted. 3. Multilevel cervical spondylosis. Individualized dose optimization techniques were used for this CT. at 0409 Reported and signed by: Julio C Frankel MD N.B. : The above Results were Read Back by Julio C Frankel MD to Savage Mejía MD, and understanding confirmed on 08/31/2021 04:14:06 (ET). Electronically Signed: Julio C Frankel MD at 4:07 EST , Chest X-Ray 08/31/21 04:04 IMPRESSION: Mild basilar atelectatic changes. at 0434 Reported and signed by: Julio C Frankel MD Electronically Signed: Julio C Frankel MD at 4:33 EST , Echocardiogram 08/31/21 05:48 Interpretation Summary The estimated ejection fraction is 55-60 %. Limited Echo study due to TDS Over all normal Lv systolic function Ordering Physician: Lynn Le Referring Physician: Aveyr Joseph Performed By: Trisha Mccarthy, CHRIS, RVT Physical Exam Const Constitutional Narrative: Restless, unable to follow commands. Orientation / Consciousness: confused HEENT normocephalic Mouth: dry mucous membranes Eyes PERRL, EOMs intact bilaterally and conjunctivae normal Eyes Narrative: Right eye patch in place. Neck no lymphadenopathy Resp clear to auscultation bilaterally Auscultation: diminished lung sounds Cardio regular rate, regular rhythm and no murmurs Peripheral Pulses: pulses 2+ throughout GI normal to inspection, nondistended, normoactive bowel sounds, non-tender and non-distended Extremity normal to inspection Skin no rashes or lesions noted Lesions: no lesions Rashes: no rashes Trauma: no lacerations or abrasions Neuro CN's II-XII intact bilaterally and deep tendon reflexes 2+ bilaterally Neuro Narrative: Right-sided weakness. Unable to follow commands, neuro assessment difficult however obvious right-sided weakness. Psych Attitude: agitated Activity / Motor Behavior: restless Assessment & Plan Assessment/Plan (1) Acute cerebrovascular accident (CVA): PLAN: 1. Suspected CVA-patient with aphasia, right-sided weakness and confusion. Echocardiogram with EF 55 to 60%. Head and neck CTA with no acute occlusive disease or acute abnormality. MRI brain pending however patient unable to cooperate due to restlessness/agitation. Reattempt MRI following as needed treatment for agitation. PT/OT/ST. Aspirin, statin. 2. Thyroid nodules-we will need outpatient thyroid ultrasound. 3. Type 2 diabetes altyiilw-Awyk-Rhbda with sliding scale insulin. 4. Hypertension-permissive, as needed regimen. 5. Hyperlipidemia-continue statin. 6. Nonobstructive CAD-continue aspirin. 7. GERD-on PPI. 8. Chronic anemia/iron deficiency anemia-continue iron supplementation. 9. Recent cataract surgery-continue home ophthalmic regimen. DVT prophylaxis-Lovenox, SCDs This patient was seen by DONOVAN Murrieta under the supervision of Dr. Maxime mary. Time spent examining patient, reviewing data and subsequent management of care: 12 Minutes Documented by User: Dr. May Stephen MD 08/31/21 15:57 Objective Data Lab / Micro Data Result Diagrams: 08/31/21 07:21 08/31/21 07:21 Charges/Coding Addendum Addendum: Patient seen by Marylin MAN Patient seen and examined. He is very confused. He was thrashing around and restless. Unable to do review of systems due to patient's confusion. O/E: Const Constitutional Narrative: confused, restless, unable to follow commands Orientation / Consciousness: confused HEENT normocephalic Mouth: dry mucous membranes Eyes PERRL, EOMs intact bilaterally and conjunctivae normal Eyes Narrative: Right eye patch in place. Neck no lymphadenopathy Resp clear to auscultation bilaterally Auscultation: diminished lung sounds Cardio regular rate, regular rhythm and no murmurs Peripheral Pulses: pulses 2+ throughout GI normal to inspection, nondistended, normoactive bowel sounds, non-tender and non-distended Extremity normal to inspection Skin no rashes or lesions noted Lesions: no lesions Rashes: no rashes Trauma: no lacerations or abrasions Neuro CN's II-XII intact bilaterally and deep tendon reflexes 2+ bilaterally Neuro Narrative: Right-sided weakness. moving all extremities, very restless, agitated Psych Attitude: agitated Activity / Motor Behavior: restless Assessment and plan #CVA * CT of the head and neck showed no acute intracranial pathology. * CTA of the head and neck showed no acute occlusive disease * MRI of the brain pending, as patient is agitated and restlessness. * on aspirin and statin. * PT/OT on board. Aspiration precautions * #Acute metabolic encephalopathy due to CVA * patient very confused and agitated. * PT/OT on board. * Fall precaution * #Type 2 diabetes mellitus: on ISS. Accuchecks ACHS #Hyperlipidemia: on statin #Non obstructive CAD: on aspirin and statin #GERD: on PPI #Cataract: had recent right eye cataract surgery. has dressing over right eye. #Chronic anemia: on oral iron supplements. DVT prophylaxis: lovenox Total time spent on patient's care is 30 mins, with ADVERTISING SOLICITOR spending 12 mins on patient and the hospitalist spending 18 mins. Visit Charges Inpatient E&M: 08592 Subs Hosp L3
[2021-08-31] MEDS: QUEtiapine 25 MG Tablet PO (14:14)
--- NOTE | 2021-08-31 14:42 | NURSING ---
Pt arrived to MRI with kieran Pereira, and Carol steiner. Pt agitated and restless. Given PO seroquel just prior to transportation to MRI due to concern for adverse effects of Ativan on existing agitation and confusion. Pt transfered to MRI table, emotional support, warm blankets, and positioning supports provided. Pt continues to be agitated, come on dear, come on now. SPO2 monitor attached to pt's right toe to avoid further agitation with sensor on finger. Unable to obtain reading. Respirations easy and unlabored when not irritated with situation. MOI Gardner, present to continue to monitor/sit with patient when returning to the floor.
[2021-08-31] MEDS: OFLOXACIN 5 ML DROPS 1 ML RIGHT EYE ×2 (16:14→22:17)
[2021-08-31 16:46] LABS: Bedside Glucose 128 mg/dL (70-110)
[2021-08-31 22:41] LABS: Bedside Glucose 109 mg/dL (70-110)
[2021-09-01] VITALS (11 sets, daily range): BP systolic 155–175; BP diastolic 76–93; PULSE 56–75; RESP 16–18; TEMP 36.5–36.8; O2SAT 96–100; BMI 25.2
[2021-09-01] MEDS: Haloperidol Lactate 5 MG/ML Vial 1 MG IV ×2 (02:18→07:06)
[2021-09-01] MEDS: 0.9% Saline Lock 10 ML Syringe IV (02:21)
[2021-09-01] MEDS: 0.9% Normal Saline 1,000 ML 100 ML IV ×3 (02:21→21:41)
[2021-09-01] MEDS: OFLOXACIN 5 ML DROPS 1 ML RIGHT EYE ×4 (05:26→21:35)
[2021-09-01 07:11] LABS: Bedside Glucose 93 mg/dL (70-110)
[2021-09-01] MEDS: Aspirin E.C. 81 MG Tablet PO (10:09)
[2021-09-01] MEDS: Lansoprazole 15 MG Capsule.DR PO (10:09)
[2021-09-01] MEDS: Ferrous Sulfate 325 MG Tablet PO (10:09)
[2021-09-01] MEDS: Enoxaparin 40 MG/0.4 ML Syringe SC (10:10)
--- NOTE | 2021-09-01 10:31 | TELEMED_ITS ---
[facility] Telemed has confirmed receipt of a request for visit. This document confirms receipt of the order initiating the consult. To find the results of the consultation, please view the patient's reports for the scanned Telemed Consult.
--- NOTE | 2021-09-01 10:36 | PCM.PN.HOSP ---
Documented by User: Marylin Marie NP, MUD MILL TENDER-C 09/01/21 10:50 Subjective Subjective Patient seen and examined. Sitter at bedside for safety. Nursing reports continued restlessness, confusion with intermittent agitation overnight and early this morning. Patient received as needed Haldol. Objective Data Objective Data Vital Signs: Vital Signs Temp Pulse Resp BP Pulse Ox 97.8 F 56 L 18 163/80 H 96 09/01/21 10:05 09/01/21 10:05 09/01/21 10:05 09/01/21 10:05 09/01/21 10:05 Oxygen Flow Rate (L/min) 1 Oxygen Delivery Method Room Air Weight: 187 lb 13.341 oz Body Mass Index (BMI) 25.2 Intake & Output: Intake and Output for Last 24 Hours 08/30/21 08/31/21 09/01/21 23:59 23:59 23:59 Intake Total 1000 / 1000 1000 / 1000 Output Total 1050 / 1250 600 / 600 Balance -50 / -250 400 / 400 Lab / Micro Data Result Diagrams: 08/31/21 07:21 08/31/21 07:21 Labs: Laboratory Results - last 24 hr 08/31/21 11:08: POC Glucose 148 H 08/31/21 16:12: POC Glucose 128 H 08/31/21 22:22: POC Glucose 109 09/01/21 07:01: POC Glucose 93 Micro: Microbiology 08/31/21 04:55 Nasal Secretion SARS-CoV-2 Antigen (Rapid) - Final Radiography Diagnostic Testing: Radiology Impression Brain MRI 08/31/21 05:48 IMPRESSION: No acute findings in the head/brain. Electronically Signed: Álvaro Hunter MD at 15:26 EST Reading Location ID and State: [facility] / [place] , Service support , Echocardiogram 08/31/21 05:48 Interpretation Summary The estimated ejection fraction is 55-60 %. Limited Echo study due to TDS Over all normal Lv systolic function Ordering Physician: Lynn Le Referring Physician: Avery Joseph Performed By: Trisha Mccarthy, CHRSI, RVT Physical Exam Const Constitutional Narrative: Restless, intermittently agitated. Sitter at bedside. Orientation / Consciousness: confused HEENT normocephalic Mouth: dry mucous membranes Eyes PERRL, EOMs intact bilaterally and conjunctivae normal Neck no lymphadenopathy Resp normal respiratory effort and clear to auscultation bilaterally Cardio regular rate, regular rhythm and no murmurs Peripheral Pulses: pulses 2+ throughout GI normal to inspection, nondistended, normoactive bowel sounds, non-tender and non-distended Extremity normal to inspection Skin no rashes or lesions noted Lesions: no lesions Rashes: no rashes Trauma: no lacerations or abrasions Neuro CN's II-XII intact bilaterally, no focal motor deficits, no sensory deficits noted and deep tendon reflexes 2+ bilaterally Psych Activity / Motor Behavior: restless Assessment & Plan Assessment/Plan (1) Altered mental state: PLAN: 1. Acute encephalopathy with restlessness and intermittent agitation-unclear etiology. CVA ruled out. MRI with no acute findings. Echocardiogram demonstrated an EF of 55 to 60%. Head and neck CTA with no acute occlusive disease or acute abnormality. PT/OT/ST. no evidence of metabolic or infectious etiology. UA/chest x-ray unremarkable. Consult neurology for further recommendations. Will add low-dose scheduled Seroquel. 2. Thyroid nodules-we will need outpatient thyroid ultrasound. 3. Type 2 diabetes [id number]-Vjsuq with sliding scale insulin. 4. Hypertension-continue home lisinopril regimen. 5. Hyperlipidemia-continue statin. 6. Nonobstructive CAD-continue aspirin. 7. GERD-on PPI. 8. Chronic anemia/iron deficiency anemia-continue iron supplementation. 9. Recent cataract surgery-continue home ophthalmic regimen. DVT prophylaxis-Lovenox, SCDs This patient was seen by DONOVAN Murrieta under the supervision of Dr. Stephen. Time spent examining patient, reviewing data and subsequent management of care: 11 Minutes Documented by User: Dr. May Stephen MD 09/01/21 16:42 Objective Data Lab / Micro Data Result Diagrams: 08/31/21 07:21 08/31/21 07:21 Charges/Coding Addendum Addendum: Patient seen by Marylin MAN under my supervision Patient seen and examined. He remains very confused. He was thrashing around and restless. Unable to do review of systems due to patient's confusion. O/E: Const Constitutional Narrative: confused, restless, unable to follow commands Orientation / Consciousness: confused HEENT normocephalic Mouth: dry mucous membranes Eyes PERRL, EOMs intact bilaterally and conjunctivae normal Eyes Narrative: Right eye patch in place. Neck no lymphadenopathy Resp clear to auscultation bilaterally Auscultation: diminished lung sounds Cardio regular rate, regular rhythm and no murmurs Peripheral Pulses: pulses 2+ throughout GI normal to inspection, nondistended, normoactive bowel sounds, non-tender and non-distended Extremity normal to inspection Skin no rashes or lesions noted Lesions: no lesions Rashes: no rashes Trauma: no lacerations or abrasions Neuro CN's II-XII intact bilaterally and deep tendon reflexes 2+ bilaterally Neuro Narrative: Right-sided weakness. moving all extremities, very restless, agitated Psych Attitude: agitated Activity / Motor Behavior: restless Assessment and plan #Acue metabolic encephalopathy CT of the head and neck showed no acute intracranial pathology. CTA of the head and neck showed no acute occlusive disease MRI of the brain was also negative for stroke. on aspirin and statin PT/OT on board [facility] neurology reviewed patient and think this is likely due to delirium and differentials include seizures and less likely encephalitis. Recommend EEG and if patient does not improve, recommend LP. on seroquel for agitation. aspiration precautions #Type 2 diabetes mellitus: on ISS. Accuchecks ACHS #Hyperlipidemia: on statin #Non obstructive CAD: on aspirin and statin #GERD: on PPI #Cataract: had recent right eye cataract surgery. has dressing over right eye. #Chronic anemia: on oral iron supplements. DVT prophylaxis: lovenox Total time spent I on care of patient today, 20 minutes with MUD MILL TENDER spending 11 minutes with a total of 31 minutes. Visit Charges Inpatient E&M: 24306 Subs Hosp L2
[2021-09-01] MEDS: Lisinopril 10 MG Tablet PO (11:32)
[2021-09-01] MEDS: QUEtiapine 25 MG Tablet PO ×2 (11:32→21:38)
[2021-09-01 11:41] LABS: Bedside Glucose 101 mg/dL (70-110)
[2021-09-01 17:11] LABS: Bedside Glucose 82 mg/dL (70-110)
[2021-09-01] MEDS: Atorvastatin Calcium 20 MG Tablet PO (21:38)
[2021-09-01 22:06] LABS: Bedside Glucose 94 mg/dL (70-110)
[2021-09-02] VITALS (9 sets, daily range): BP systolic 158–160; BP diastolic 85–94; PULSE 71–92; RESP 17–18; TEMP 36.7–37.2; O2SAT 95–97; BMI 25.2
[2021-09-02] MEDS: OFLOXACIN 5 ML DROPS 1 ML RIGHT EYE ×4 (04:49→20:46)
[2021-09-02 05:30] LABS: Absolute Lymphocyte Count 1.14 X10^3/uL (0.83-4.51); Absolute Neutrophil Count 7.9 X10^3/uL (2.0-7.7); Basophil# 0.04 X10^3/uL; Basophil% 0.4 % (0-1); Eosinophil# 0.33 X10^3/uL; Eosinophils% 3.1 % (0-5); Hematocrit 39.8 % (40-54); Hemoglobin 13.3 g/dL (13.0-16.5); Lymphocyte # 1.14 X10^3/ul (0.83-4.51); Lymphocyte % 10.8 % (19-41); Mean Corp Hgb Conc 33.4 g/dL (32-36); Mean Corpuscular Hgb 30.4 pg (27.0-32.0); Mean Corpuscular Volume 90.9 fL (80-94); Mean Platelet Vol. 9.6 fl (6.2-12.0); Monocyte# 1.08 X10^3/uL; Monocyte% 10.2 % (0-10); NRBC Flagged by Analyzer 0 % (0-5); Neutrophil # 7.92 X10^3/uL (2.7-7.7); Platelet Count 160 K/mm3 (150-450); RBC Distribution Width CV 13.2 % (11.6-14.6); RBC Distribution Width SD 43.3 fl (35.1-43.9); Red Blood Count 4.38 M/mm3 (4.6-6.2); White Blood Count 10.6 K/mm3 (4.4-11.0)
[2021-09-02 05:58] LABS: Anion Gap 11 (5-15); BUN 16 mg/dL (7-18); BUN/Creat Ratio 20.5 RATIO (10-20); Calcium,Total 8.5 mg/dL (8.5-10.1); Chloride 102 mmol/L (98-107); Creatinine, Serum 0.78 mg/dL (0.70-1.30); EST Glomerular Filtration Rate 100 mL/min (>60); Est Glom Filt Rate - Afr Amer 121 mL/min (>60); Estimated Creatinine Clearance 59.28 ml/min; Glucose 85 mg/dL (74-106); Potassium 3.6 mmol/L (3.5-5.1); Sodium Level 134 mmol/L (136-145)
--- NOTE | 2021-09-02 07:00 | NURSING ---
Per tool distributor RN patient alert and oriented x2-3 and appropriate in behavior and questions. Sitter removed at this time.
[2021-09-02 07:05] LABS: Bedside Glucose 90 mg/dL (70-110)
[2021-09-02] MEDS: 0.9% Normal Saline 1,000 ML 100 ML IV ×2 (07:51→21:36)
[2021-09-02] MEDS: BENZOCAINE/MENTHOL 1 LOZENGE MUCOUS MEM ×2 (08:21→16:35)
[2021-09-02 08:29] LABS: MG Sendout 1.2 mg/dL (1.6-2.3)
[2021-09-02] MEDS: Ferrous Sulfate 325 MG Tablet PO (09:14)
[2021-09-02] MEDS: Lisinopril 10 MG Tablet PO ×2 (09:14→10:17)
[2021-09-02] MEDS: Aspirin E.C. 81 MG Tablet PO (09:14)
[2021-09-02] MEDS: QUEtiapine 25 MG Tablet PO ×2 (09:14→20:43)
[2021-09-02] MEDS: Lansoprazole 15 MG Capsule.DR PO (09:14)
--- NOTE | 2021-09-02 09:17 | PN.HOSP_ITS ---
Documented by User: Marylin Marie NP, BRIM POUNCING MACHINE OPERATOR-C 09/02/21 09:24 Subjective Subjective Patient seen and examined. Patient much more alert and appropriate today. Complains of sore throat. Oriented to self and place. Unable to state correct date/year. No further noted restlessness or agitation. Objective Data Objective Data Vital Signs: Vital Signs Temp Pulse Resp BP Pulse Ox 98.0 F 71 18 160/86 H 97 09/02/21 09:00 09/02/21 09:00 09/02/21 09:00 09/02/21 09:00 09/02/21 09:00 Oxygen Flow Rate (L/min) 1 Oxygen Delivery Method Room Air Weight: 189 lb 2.506 oz Body Mass Index (BMI) 25.2 Intake & Output: Intake and Output for Last 24 Hours 08/31/21 09/01/21 09/02/21 23:59 23:59 23:59 Intake Total 1000 / 1000 2925 / 2925 1000 / 1000 Output Total 1050 / 1250 1750 / 2400 1225 / 1225 Balance -50 / -250 1175 / 525 -225 / -225 Lab / Micro Data Result Diagrams: 09/02/21 05:27 09/02/21 05:27 Labs: Laboratory Results - last 24 hr 09/01/21 11:31: POC Glucose 101 09/01/21 12:45: Magnesium Cancelled 09/01/21 12:55: Magnesium 1.2 L 09/01/21 16:59: POC Glucose 82 09/01/21 21:34: POC Glucose 94 09/02/21 05:27: WBC 10.6, RBC 4.38 L, Hgb 13.3, Hct 39.8 L, MCV 90.9, MCH 30.4, MCHC 33.4, RDW Std Deviation 43.3, RDW Coeff of Brianna 13.2, Plt Count 160, MPV 9.6, Immature Gran % (Auto) 0.500, Neut % (Auto) 75.0 H, Lymph % (Auto) 10.8 L, [place] % (Auto) 10.2 H, Eos % (Auto) 3.1, Baso % (Auto) 0.4, Absolute Neuts (auto) 7.9 H, Absolute Lymphs (auto) 1.14, Nucleated RBC % 0 09/02/21 05:27: Sodium 134 L, Potassium 3.6, Chloride 102, Carbon Dioxide 21.0, Anion Gap 11, BUN 16, Creatinine 0.78, Estim Creat Clear Calc 59.28, Est GFR (MDRD) Af Amer 121, Est GFR (MDRD) Non-Af 100, BUN/Creatinine Ratio 20.5 H, Glucose 85, Calcium 8.5 09/02/21 06:58: POC Glucose 90 Micro: Microbiology 08/31/21 04:55 Nasal Secretion SARS-CoV-2 Antigen (Rapid) - Final Physical Exam Const alert and no apparent distress Orientation / Consciousness: awake, oriented to person and oriented to place HEENT normocephalic Mouth: dry mucous membranes Eyes PERRL, EOMs intact bilaterally and conjunctivae normal Neck no lymphadenopathy Resp normal respiratory effort and clear to auscultation bilaterally Cardio regular rate, regular rhythm and no murmurs Peripheral Pulses: pulses 2+ throughout GI normal to inspection, nondistended, normoactive bowel sounds, non-tender and non-distended Extremity normal to inspection Skin no rashes or lesions noted Lesions: no lesions Rashes: no rashes Trauma: no lacerations or abrasions Neuro CN's II-XII intact bilaterally, no focal motor deficits, no sensory deficits noted and deep tendon reflexes 2+ bilaterally Psych mental status grossly normal and affect normal Assessment & Plan Assessment/Plan (1) Altered mental state: PLAN: 1. Acute encephalopathy, likely delirium-CVA ruled out. MRI with no acute findings. Echocardiogram demonstrated an EF of 55 to 60%. Head and neck CTA with no acute occlusive disease or acute abnormality. PT/OT/ST. No evidence of metabolic or infectious etiology. UA/chest x-ray unremarkable. Neurology consulted. Suspects delirium. EEG without seizure activity. Cont inue low-dose Seroquel. Patient significantly improved. Will follow PT/OT input regarding discharge recommendations. 2. Thyroid nodules-we will need outpatient thyroid ultrasound. 3. Type 2 diabetes madweeyu-Ousi-Mkygf with sliding scale insulin. 4. Hypertension-continue home lisinopril regimen. 5. Hyperlipidemia-continue statin. 6. Nonobstructive CAD-continue aspirin. 7. GERD-on PPI. 8. Chronic anemia/iron deficiency anemia-continue iron supplementation. 9. Recent cataract surgery-continue home ophthalmic regimen. DVT prophylaxis-Lovenox, SCDs This patient was seen by DONOVAN Murrieta under the supervision of Dr. Stephen. Time spent examining patient, reviewing data and subsequent management of care: 10 Minutes Documented by User: Dr. May Stephen MD 09/02/21 17:16 Objective Data Lab / Micro Data Result Diagrams: 09/02/21 05:27 09/02/21 05:27 Charges/Coding Addendum Addendum: Patient seen by Marylin MAN under my supervision Patient seen and examined. Patient is much more alert and oriented today and is actually able to carry on a conversation. He is oriented to person and place but not time. He had no complaints today and actually said he felt fine. Review of systems otherwise negative. EEG done yesterday showed generalized slowing of the background rhythms with no focal or paroxysmal findings to suggest a risk of seizure. His nurse informed me that patient was having difficulty with swallowing and had pain with swallowing. O/E: Const Constitutional Narrative: alert, oriented x 2, cooperative Orientation / Consciousness: cooperative HEENT normocephalic Mouth: dry mucous membranes, throat is erythematous, tonsils not swollen. Eyes PERRL, EOMs intact bilaterally and conjunctivae normal Neck no lymphadenopathy Resp normal respiratory effort and clear to auscultation bilaterally Cardio regular rate, regular rhythm and no murmurs Peripheral Pulses: pulses 2+ throughout GI normal to inspection, nondistended, normoactive bowel sounds, non-tender and non-distended Extremity normal to inspection Skin no rashes or lesions noted Lesions: no lesions Rashes: no rashes Trauma: no lacerations or abrasions Neuro CN's II-XII intact bilaterally, no focal motor deficits, no sensory deficits noted and deep tendon reflexes 2+ bilaterally Psych Activity / Motor Behavior: cooperative, normal affect Assessment and plan #Acute metabolic encephalopathy * CT of the head and neck showed no acute intracranial pathology. * CTA of the head and neck showed no acute occlusive disease * MRI of the brain was also negative for stroke. * Encephalopathy has largely resolved and patient is alert and oriented today. * on aspirin and statin * PT/OT on board * [facility] neurology reviewed patient and think this is likely due to delirium and differentials include seizures and less likely encephalitis. * EEG was negative for any evidence of seizure * on seroquel for agitation. * aspiration precautions #Sore throat: back of patient's throat is erythematous. No fever or chills. Will give cepacol. #Type 2 diabetes mellitus: on ISS. Accuchecks ACHS #Hyperlipidemia: on statin #Non obstructive CAD: on aspirin and statin #GERD: on PPI #Cataract: had recent right eye cataract surgery. has dressing over right eye. #Chronic anemia: on oral iron supplements. DVT prophylaxis: lovenox Disposition: awaiting placement Total time spent on care of patient today which included seeing and examining patient, reviewing data and discussion with medical team as well as documentin minutes with BRIM POUNCING MACHINE OPERATOR spending 10 minutes making a total of 35 minutes. Visit Charges Inpatient E&M: 64252 Subs Hosp L2
[2021-09-02] MEDS: Enoxaparin 40 MG/0.4 ML Syringe SC (09:21)
[2021-09-02] MEDS: Magnesium Sulfate 4gm/100mL 4 GM/100 ML IV.SOLN. IV (10:18)
--- NOTE | 2021-09-02 10:34 | NURSING ---
[facility] d/c, pt tolerated well. Adult attends placed.
[2021-09-02 11:25] LABS: Bedside Glucose 183 mg/dL (70-110)
[2021-09-02] MEDS: BMX LIQUID 180 ML 10 ML PO (14:04)
[2021-09-02] MEDS: Insulin Lispro 100 UNIT/ML INSULN.PEN SC ×2 (16:34→20:43)
[2021-09-02 16:50] LABS: Bedside Glucose 259 mg/dL (70-110)
[2021-09-02] MEDS: Atorvastatin Calcium 20 MG Tablet PO (20:43)
[2021-09-02 22:21] LABS: Bedside Glucose 166 mg/dL (70-110)
[2021-09-03 03:00] VITALS: BP 155/81; PULSE 80; RESP 16; TEMP 37; O2SAT 98
[2021-09-03] MEDS: OFLOXACIN 5 ML DROPS 1 ML RIGHT EYE ×2 (03:30→08:07)
[2021-09-03 04:00] VITALS: PULSE 63
[2021-09-03 05:00] VITALS: BMI 25.2
[2021-09-03 05:50] LABS: Absolute Lymphocyte Count 1.11 X10^3/uL (0.83-4.51); Absolute Neutrophil Count 7.3 X10^3/uL (2.0-7.7); Basophil# 0.03 X10^3/uL; Basophil% 0.3 % (0-1); Eosinophil# 0.24 X10^3/uL; Eosinophils% 2.5 % (0-5); Hemoglobin 12.5 g/dL (13.0-16.5); Lymphocyte # 1.11 X10^3/ul (0.83-4.51); Lymphocyte % 11.4 % (19-41); Mean Corp Hgb Conc 33.8 g/dL (32-36); Mean Corpuscular Hgb 30.6 pg (27.0-32.0); Mean Corpuscular Volume 90.5 fL (80-94); Mean Platelet Vol. 9.7 fl (6.2-12.0); Monocyte# 1.04 X10^3/uL; Monocyte% 10.7 % (0-10); NRBC Flagged by Analyzer 0 % (0-5); Neutrophil # 7.27 X10^3/uL (2.7-7.7); Neutrophil % 74.8 % (47-70); Platelet Count 177 K/mm3 (150-450); RBC Distribution Width CV 13.2 % (11.6-14.6); RBC Distribution Width SD 43.3 fl (35.1-43.9); Red Blood Count 4.09 M/mm3 (4.6-6.2); White Blood Count 9.7 K/mm3 (4.4-11.0)
[2021-09-03 06:18] LABS: Anion Gap 9 (5-15); BUN 16 mg/dL (7-18); BUN/Creat Ratio 17.8 RATIO (10-20); Calcium,Total 8.3 mg/dL (8.5-10.1); Chloride 103 mmol/L (98-107); EST Glomerular Filtration Rate 85 mL/min (>60); Est Glom Filt Rate - Afr Amer 103 mL/min (>60); Estimated Creatinine Clearance 65.86 ml/min; Glucose 163 mg/dL (74-106); Potassium 3.6 mmol/L (3.5-5.1); Sodium Level 133 mmol/L (136-145)
[2021-09-03] MEDS: Insulin Lispro 100 UNIT/ML INSULN.PEN SC ×3 (06:37→15:52)
[2021-09-03 07:35] VITALS: PULSE 79
[2021-09-03] MEDS: QUEtiapine 25 MG Tablet PO (08:06)
[2021-09-03] MEDS: Lansoprazole 15 MG Capsule.DR PO (08:06)
[2021-09-03] MEDS: Ferrous Sulfate 325 MG Tablet PO (08:06)
[2021-09-03] MEDS: Aspirin E.C. 81 MG Tablet PO (08:06)
[2021-09-03] MEDS: Lisinopril 20 MG Tablet PO (08:06)
[2021-09-03] MEDS: Enoxaparin 40 MG/0.4 ML Syringe SC (08:07)
[2021-09-03 08:15] VITALS: BP 168/80; PULSE 84; RESP 16; TEMP 36.3; O2SAT 96
[2021-09-03] MEDS: 0.9% Normal Saline 1,000 ML 100 ML IV (09:02)
[2021-09-03 11:40] LABS: Bedside Glucose 222 mg/dL (70-110)
[2021-09-03 11:55] VITALS: PULSE 98
--- NOTE | 2021-09-03 12:17 | CASEMGMT ---
SW met with patient's . Introduced self and role at [facility]. Patient's got their daughter on the phone and put her on speaker. SW provided a list of SNF providers including quality and resource use data and consistent with the patient?s preferred geographic region, medical needs, and insurance network. SW explained the ones that take patient's insurance are highlighted in pink. SW explained SW called and checked on patient's halfway benefits. Patient does not have any co-pays or deductible and he has unlimited days. They will discuss the facilities and let J CARLOS know. Elizabeth To COURSE DEVELOPER KAROL
--- NOTE | 2021-09-03 12:48 | PCM.PN.HOSP ---
Documented by User: Marylin Marie NP, INCIDENT COMMANDER-C 09/03/21 12:54 Subjective Subjective Patient seen and examined. Remains alert, more appropriate. Oriented to self, place, time. Remains intermittently confused and impulsive. Discussed with at bedside and daughter by phone. Amendable to rehab at [place]. Objective Data Objective Data Vital Signs: Vital Signs Temp Pulse Resp BP Pulse Ox 97.3 F L 98 16 168/80 H 96 09/03/21 08:15 09/03/21 11:55 09/03/21 08:15 09/03/21 08:15 09/03/21 08:15 Oxygen Flow Rate (L/min) 1 Oxygen Delivery Method Room Air Weight: 187 lb 6.287 oz Body Mass Index (BMI) 25.2 Intake & Output: Intake and Output for Last 24 Hours 09/01/21 09/02/21 09/03/21 23:59 23:59 23:59 Intake Total 2925 / 2925 2343.33 / 2343.33 1361.67 / 1361.67 Output Total 1750 / 2400 2225 / 2225 875 / 875 Balance 1175 / 525 118.33 / 118.33 486.67 / 486.67 Lab / Micro Data Result Diagrams: 09/03/21 05:24 09/03/21 05:24 Labs: Laboratory Results - last 24 hr 09/02/21 16:30: POC Glucose 259 H 09/02/21 20:39: POC Glucose 166 H 09/03/21 05:24: WBC 9.7, RBC 4.09 L, Hgb 12.5 L, Hct 37.0 L, MCV 90.5, MCH 30.6, MCHC 33.8, RDW Std Deviation 43.3, RDW Coeff of Brianna 13.2, Plt Count 177, MPV 9.7, Immature Gran % (Auto) 0.300, Neut % (Auto) 74.8 H, Lymph % (Auto) 11.4 L, [place] % (Auto) 10.7 H, Eos % (Auto) 2.5, Baso % (Auto) 0.3, Absolute Neuts (auto) 7.3, Absolute Lymphs (auto) 1.11, Nucleated RBC % 0 09/03/21 05:24: Sodium 133 L, Potassium 3.6, Chloride 103, Carbon Dioxide 21.0, Anion Gap 9, BUN 16, Creatinine 0.90, Estim Creat Clear Calc 65.86, Est GFR (MDRD) Af Amer 103, Est GFR (MDRD) Non-Af 85, BUN/Creatinine Ratio 17.8, Glucose 163 H, Calcium 8.3 L, Magnesium Cancelled 09/03/21 11:07: POC Glucose 222 H Micro: Microbiology 08/31/21 04:55 Nasal Secretion SARS-CoV-2 Antigen (Rapid) - Final Physical Exam Const alert Constitutional Narrative: intermittently confused, impulsive. Orientation / Consciousness: awake, oriented to person, oriented to place and oriented to time HEENT normocephalic and moist oral mucous membranes Eyes PERRL, EOMs intact bilaterally and conjunctivae normal Neck no lymphadenopathy Resp normal respiratory effort and clear to auscultation bilaterally Cardio regular rate, regular rhythm and no murmurs Peripheral Pulses: pulses 2+ throughout GI normal to inspection, nondistended, normoactive bowel sounds, non-tender and non-distended Extremity normal to inspection Skin no rashes or lesions noted Lesions: no lesions Rashes: no rashes Trauma: no lacerations or abrasions Neuro CN's II-XII intact bilaterally, no focal motor deficits, no sensory deficits noted and deep tendon reflexes 2+ bilaterally Psych mental status grossly normal and affect normal Assessment & Plan Assessment/Plan (1) Altered mental state: PLAN: 1. Acute encephalopathy, likely delirium-suspect chronic underlying mild cognitive impairment. CVA ruled out. MRI with no acute findings. Echocardiogram demonstrated an EF of 55 to 60%. Head and neck CTA with no acute occlusive disease or acute abnormality. PT/OT/ST. No evidence of metabolic or infectious etiology. UA/chest x-ray unremarkable. Neurology consulted. Suspects delirium. EEG without seizure activity. Continue low-dose Seroquel. Patient significantly improved. Will follow PT/OT input regarding discharge recommendations. Will need skiver hand follow-up at discharge for formal cognitive evaluation. 2. Thyroid nodules-we will need outpatient thyroid ultrasound. 3. Type 2 diabetes rxjpdogw-Kyzd-Tkizg with sliding scale insulin. 4. Hypertension-continue home lisinopril regimen. 5. Hyperlipidemia-continue statin. 6. Nonobstructive CAD-continue aspirin. 7. GERD-on PPI. 8. Chronic anemia/iron deficiency anemia-continue iron supplementation. 9. Recent cataract surgery-continue home ophthalmic regimen. DVT prophylaxis-Lovenox, SCDs This patient was seen by DONOVAN Murrieta under the supervision of Dr. Cisse. Time spent examining patient, reviewing data and subsequent management of care: 11 Minutes Documented by User: Dr. Shankar Cisse DO 09/03/21 14:42 Objective Data Lab / Micro Data Result Diagrams: 09/03/21 05:24 09/03/21 05:24
--- NOTE | 2021-09-03 13:00 | CASEMGMT ---
Patient's told SW that the first choice would be [facility], second [facility], and third [facility]. SW told her SW will call and let her know what SW is able to find out. J CARLOS spoke with [facility] in TCU and they will have a bed for patient. Debby will start the pre-cert. SW called patient's and let her know TCU can take patient once insurance approves. Plan: [facility] under skilled level of care pending insurance approval. Elizabeth ROBERSON
--- NOTE | 2021-09-03 13:52 | PCM.TXEXTCAR ---
Documented by User: Marylin Marie DAIRY TECHNOLOGIST, DAIRY TECHNOLOGIST-C 09/03/21 14:00 Diet 09/02/21 11:17 Diet: Regular - General Food consistency:: Pureed Liquid Consistency:: Regular/Thin Is pt able to select menu?: No Diet Comments: Total feed, must be fully alert. Routine Orders/Code Status Enema Type: Fleetz Enema Frequency: Daily PRN Suppository Type: Dulcolax 10mg Suppository Frequency: Daily PRN Routine Lab Work: - (Weekly CBC, BMP) Code Status: Full Code Suggestions for Active Care Change Position every (hours): 2 Times a day to sit in chair: 3 Therapies Physical Therapy: Eval and Treat Occupational Therapy: Eval and Treat Speech Therapy: Eval and Treat Problem/Diagnosis (1) Altered mental state: Status: Acute Allergies/Procedures Done in Hospital Allergies Proton Pump Inhibitors Allergy (Verified 08/31/21 03:41) Other hyponatremia oxycodone Adverse Reaction (Verified 08/31/21 03:41) Other Procedures: 2-D Echocardiogram Type of Care/Length of Stay Estimated LOS: Convalescent Care Less Than 30 days Type of Care Needed: Skilled Rehab Potential: Fair Prognosis: Fair Additional Orders/Day of Discharge H&P will serve as current which was dated: 08/31/21 Day of Discharge: 09/03/21 Dietary and Speech Recommendations Dietitian Recommendations/Changes: As medically able, rec KAUSHIK to liberal Regular - consistency per FURNACE ROOM SUPERVISOR As medically able, rec 4 oz ensure compact 4x/day for increased nutrition if consumed. Discharge Plan Admission Admit Date/Time: 08/31/21 04:59 Primary Reason for Your Visit: Acute encephalopathy Attending Provider: Shankar Cisse Primary Care Provider: Avery Joseph Discharge Orders/Prescriptions Prescriptions: New quetiapine 25 mg Tablet 25 mg PO BID Qty: 0 RF: 0 lisinopril 10 mg Tablet 10 mg PO DAILY Qty: 0 RF: 0 Continued ferrous sulfate 140 mg (45 mg iron) tablet extended release 140 mg PO DAILY RF: 0 aspirin [Adult Aspirin Regimen] 81 mg tablet,delayed release (DR/EC) 81 mg PO DAILY RF: 0 metformin 1,000 mg tablet 1,000 mg PO BID RF: 0 lansoprazole 15 mg capsule,delayed release(DR/EC) 15 mg PO DAILY RF: 0 magnesium oxide 250 mg magnesium tablet 500 mg PO DAILY RF: 0 pioglitazone 15 mg tablet 15 mg PO DAILY RF: 0 ofloxacin 0.3 % drops 1 drp RIGHT EYE Q6H RF: 0 BromSite 0.075 % drops 1 drp RIGHT EYE QHS RF: 0 Discontinued lisinopril 5 mg tablet 5 mg PO DAILY Qty: 90 RF: 3 baclofen 10 MG tablet 10 mg PO TID PRN PRN (Reason: muscle spasms) RF: 0 Referrals / Follow Up: Avery Joseph MD [Primary Care Provider] - In 1 Week Disposition Disposition (needs filled in before D/C Order can be placed): Group Home Facility Documented by User: Dr. Shankar Cisse DO 09/03/21 14:42 Allergies/Procedures Done in Hospital Allergies Proton Pump Inhibitors Allergy (Verified 08/31/21 03:41) Other hyponatremia oxycodone Adverse Reaction (Verified 08/31/21 03:41) Other Discharge Plan Admission Admit Date/Time: 08/31/21 04:59 Primary Reason for Your Visit: Acute encephalopathy Attending Provider: Shankar Cisse Primary Care Provider: Avery Joseph Discharge Orders/Prescriptions Prescriptions: New quetiapine 25 mg Tablet 25 mg PO BID Qty: 0 RF: 0 lisinopril 10 mg Tablet 10 mg PO DAILY Qty: 0 RF: 0 Continued ferrous sulfate 140 mg (45 mg iron) tablet extended release 140 mg PO DAILY RF: 0 aspirin [Adult Aspirin Regimen] 81 mg tablet,delayed release (DR/EC) 81 mg PO DAILY RF: 0 metformin 1,000 mg tablet 1,000 mg PO BID RF: 0 lansoprazole 15 mg capsule,delayed release(DR/EC) 15 mg PO DAILY RF: 0 magnesium oxide 250 mg magnesium tablet 500 mg PO DAILY RF: 0 pioglitazone 15 mg tablet 15 mg PO DAILY RF: 0 ofloxacin 0.3 % drops 1 drp RIGHT EYE Q6H RF: 0 BromSite 0.075 % drops 1 drp RIGHT EYE QHS RF: 0 Discontinued lisinopril 5 mg tablet 5 mg PO DAILY Qty: 90 RF: 3 baclofen 10 MG tablet 10 mg PO TID PRN PRN (Reason: muscle spasms) RF: 0 Referrals / Follow Up: Avery Joseph MD [Primary Care Provider] - In 1 Week Disposition Disposition (needs filled in before D/C Order can be placed): Group Home Facility
--- NOTE | 2021-09-03 14:00 | DS.PCM_ITS ---
Documented by User: Marylin Marie NP, TIRE ADJUSTER-C 09/03/21 14:09 Providers Date of Admission: 08/31/21 Primary Care Physician: Dr. Avery Joseph MD Reason For Visit: ACUTE CVA Diagnosis Discharge Diagnosis (1) Altered mental state: Status: Acute Code(s): R41.82 - Altered mental status, unspecified Medications at Discharge Home Medications aspirin 81 mg tablet,delayed release 81 mg PO DAILY 07/20/20 ferrous sulfate 140 mg (45 mg iron) tablet,extended release 140 mg PO DAILY 07/20/20 magnesium oxide 500 mg PO DAILY tab 07/20/20 lansoprazole 15 mg capsule,delayed release 15 mg PO DAILY cap 07/03/21 metformin 1,000 mg tablet 1,000 mg PO BID tab 07/03/21 pioglitazone 15 mg PO DAILY 07/24/21 BromSite 1 drp RIGHT EYE QHS 08/31/21 ofloxacin 1 drp RIGHT EYE Q6H 08/31/21 lisinopril 10 mg PO DAILY #0 tab 09/03/21 quetiapine 25 mg PO BID #0 tab 09/03/21 Hospital Course Operations None Procedures 2-D Echocardiogram Summary of Care Provided Hospital Course: 1. Acute encephalopathy, likely delirium-suspect chronic underlying mild cognitive impairment. CVA ruled out. MRI with no acute findings. Echocardiogram demonstrated an EF of 55 to 60%. Head and neck CTA with no acute occlusive disease or acute abnormality. PT/OT/ST. No evidence of metabolic or infectious etiology. UA/chest x-ray unremarkable. Neurology consulted. Suspects delirium. EEG without seizure activity. Continue low-dose Seroquel. Patient significantly improved. Will need identification and records commander follow-up at discharge for formal cognitive evaluation. TCU at discharge for rehab. 2. Thyroid nodules-we will need outpatient thyroid ultrasound. 3. Type 2 diabetes mellitus-continue home oral regimen. 4. Hypertension-continue home lisinopril regimen. 5. Hyperlipidemia-continue statin. 6. Nonobstructive CAD-continue aspirin. 7. GERD-on PPI. 8. Chronic anemia/iron deficiency anemia-continue iron supplementation. 9. Recent cataract surgery-continue home ophthalmic regimen. Physical Exam Const alert Constitutional Narrative: intermittently confused, impulsive. Orientation / Consciousness: awake, oriented to person, oriented to place and oriented to time HEENT normocephalic and moist oral mucous membranes Eyes PERRL, EOMs intact bilaterally and conjunctivae normal Neck no lymphadenopathy Resp normal respiratory effort and clear to auscultation bilaterally Cardio regular rate, regular rhythm and no murmurs Peripheral Pulses: pulses 2+ throughout GI normal to inspection, nondistended, normoactive bowel sounds, non-tender and non-distended Extremity normal to inspection Skin no rashes or lesions noted Lesions: no lesions Rashes: no rashes Trauma: no lacerations or abrasions Neuro CN's II-XII intact bilaterally, no focal motor deficits, no sensory deficits noted and deep tendon reflexes 2+ bilaterally Psych mental status grossly normal and affect normal Patient seen and examined prior to discharge. Physical assessment as noted above. Patient is stable for discharge with follow up recommendations as noted above. This patient was seen by DONOVAN Murrieta under the supervision of Dr. Cisse. Time spent examining patient, reviewing data and subsequent management of care: 14 Minutes Weight / BMI Weight Weight: 187 lb 6.287 oz Body Mass Index (BMI) 25.2 ABG / Lab / Microbiology Data Result Diagrams: 09/03/21 05:24 09/03/21 05:24 Laboratory: Laboratory Results - last 24 hr 09/02/21 16:30: POC Glucose 259 H 09/02/21 20:39: POC Glucose 166 H 09/03/21 05:24: WBC 9.7, RBC 4.09 L, Hgb 12.5 L, Hct 37.0 L, MCV 90.5, MCH 30.6, MCHC 33.8, RDW Std Deviation 43.3, RDW Coeff of Brianna 13.2, Plt Count 177, MPV 9.7, Immature Gran % (Auto) 0.300, Neut % (Auto) 74.8 H, Lymph % (Auto) 11.4 L, Tucker % (Auto) 10.7 H, Eos % (Auto) 2.5, Baso % (Auto) 0.3, Absolute Neuts (auto) 7.3, Absolute Lymphs (auto) 1.11, Nucleated RBC % 0 09/03/21 05:24: Sodium 133 L, Potassium 3.6, Chloride 103, Carbon Dioxide 21.0, Anion Gap 9, BUN 16, Creatinine 0.90, Estim Creat Clear Calc 65.86, Est GFR (MDRD) Af Amer 103, Est GFR (MDRD) Non-Af 85, BUN/Creatinine Ratio 17.8, Glucose 163 H, Calcium 8.3 L, Magnesium Cancelled 09/03/21 11:07: POC Glucose 222 H Microbiology: Microbiology 08/31/21 04:55 Nasal Secretion SARS-CoV-2 Antigen (Rapid) - Final Meaningful Use Info Meaningful Use Diagnoses (Choose all that apply): None applicable Discharge Plan Admission Admit Date/Time: 08/31/21 04:59 Primary Reason for Your Visit: Acute encephalopathy Attending Provider: Shankar Cisse Primary Care Provider: Avery Joseph Discharge Orders/Prescriptions Prescriptions: New quetiapine 25 mg Tablet 25 mg PO BID Qty: 0 RF: 0 lisinopril 10 mg Tablet 10 mg PO DAILY Qty: 0 RF: 0 Continued ferrous sulfate 140 mg (45 mg iron) tablet extended release 140 mg PO DAILY RF: 0 aspirin [Adult Aspirin Regimen] 81 mg tablet,delayed release (DR/EC) 81 mg PO DAILY RF: 0 metformin 1,000 mg tablet 1,000 mg PO BID RF: 0 lansoprazole 15 mg capsule,delayed release(DR/EC) 15 mg PO DAILY RF: 0 magnesium oxide 250 mg magnesium tablet 500 mg PO DAILY RF: 0 pioglitazone 15 mg tablet 15 mg PO DAILY RF: 0 ofloxacin 0.3 % drops 1 drp RIGHT EYE Q6H RF: 0 BromSite 0.075 % drops 1 drp RIGHT EYE QHS RF: 0 Discontinued lisinopril 5 mg tablet 5 mg PO DAILY Qty: 90 RF: 3 baclofen 10 MG tablet 10 mg PO TID PRN PRN (Reason: muscle spasms) RF: 0 Referrals / Follow Up: Avery Joseph MD [Primary Care Provider] - In 1 Week Disposition Disposition (needs filled in before D/C Order can be placed): Jail Facility Documented by User: Dr. Shankar Cisse DO 09/03/21 14:45 Providers Date of Admission: 08/31/21 Reason For Visit: ACUTE CVA Medications at Discharge Home Medications aspirin 81 mg tablet,delayed release 81 mg PO DAILY 07/20/20 ferrous sulfate 140 mg (45 mg iron) tablet,extended release 140 mg PO DAILY 07/20/20 magnesium oxide 500 mg PO DAILY tab 07/20/20 lansoprazole 15 mg capsule,delayed release 15 mg PO DAILY cap 07/03/21 metformin 1,000 mg tablet 1,000 mg PO BID tab 07/03/21 pioglitazone 15 mg PO DAILY 07/24/21 BromSite 1 drp RIGHT EYE QHS 08/31/21 ofloxacin 1 drp RIGHT EYE Q6H 08/31/21 lisinopril 10 mg PO DAILY #0 tab 09/03/21 quetiapine 25 mg PO BID #0 tab 09/03/21 Hospital Course Operations None Procedures None Summary of Care Provided Minutes Spent on Discharge: 35 Hospital Course: 85-year-old male presents with aphasia and weakness. He underwent a work-up including MRI and EEG that were unremarkable. notes that he has had short dementia evaluation and was concerning for dementia in the past. Explained her that he may have some underlying dementia but did recommend outpatient evaluation with geriatrics for more formal and thorough dementia evaluation. Physical Exam Const alert and no apparent distress Resp normal respiratory effort, no use of accessory muscles and clear to auscultation bilaterally Cardio regular rate, regular rhythm, S1 normal heart sound and S2 normal heart sound GI normal to inspection, nondistended, normoactive bowel sounds, soft to palpation, non-tender and non-distended Extremity normal to inspection ABG / Lab / Microbiology Data Result Diagrams: 09/03/21 05:24 09/03/21 05:24 Discharge Plan Admission Admit Date/Time: 08/31/21 04:59 Primary Reason for Your Visit: Acute encephalopathy Attending Provider: Shankar Cisse Primary Care Provider: Avery Joseph Discharge Orders/Prescriptions Prescriptions: New quetiapine 25 mg Tablet 25 mg PO BID Qty: 0 RF: 0 lisinopril 10 mg Tablet 10 mg PO DAILY Qty: 0 RF: 0 Continued ferrous sulfate 140 mg (45 mg iron) tablet extended release 140 mg PO DAILY RF: 0 aspirin [Adult Aspirin Regimen] 81 mg tablet,delayed release (DR/EC) 81 mg PO DAILY RF: 0 metformin 1,000 mg tablet 1,000 mg PO BID RF: 0 lansoprazole 15 mg capsule,delayed release(DR/EC) 15 mg PO DAILY RF: 0 magnesium oxide 250 mg magnesium tablet 500 mg PO DAILY RF: 0 pioglitazone 15 mg tablet 15 mg PO DAILY RF: 0 ofloxacin 0.3 % drops 1 drp RIGHT EYE Q6H RF: 0 BromSite 0.075 % drops 1 drp RIGHT EYE QHS RF: 0 Discontinued lisinopril 5 mg tablet 5 mg PO DAILY Qty: 90 RF: 3 baclofen 10 MG tablet 10 mg PO TID PRN PRN (Reason: muscle spasms) RF: 0 Referrals / Follow Up: Avery Joseph MD [Primary Care Provider] - In 1 Week Disposition Disposition (needs filled in before D/C Order can be placed): Jail Facility Charges/Coding Visit Charges Inpatient E&M: 32137 Disch Hosp
[2021-09-03 14:22] VITALS: BP 157/86; PULSE 75; RESP 18; TEMP 37; O2SAT 96
--- NOTE | 2021-09-03 14:22 | CASEMGMT ---
Patient's insurance is waiving pre-certification. Patient can go to TCU today. J CARLOS notified Nurse Practitioner Marylin and she will discharge patient today. J CARLOS notified patient's that patient will be going to TCU today. J CARLOS let her know patient will be able to wear clothes while in TCU instead of a gown so she could get some things together for patient. She thanked J CARLOS for the assistance. Plan: d/c to [facility] TCU under skilled level of care. Elizabeth ROBERSON
[2021-09-03] MEDS: BMX LIQUID 180 ML 10 ML PO (14:37)
[2021-09-03 15:56] LABS: Bedside Glucose 189 mg/dL (70-110)
[2021-09-04 13:52] LABS: MG Sendout 1.9 mg/dL (1.6-2.3)
== END 2021-09-03 16:17 | DRG 72 ==
LOC: ED 04:35 → PCU 05:16
PROVIDERS: Nurse Practitioner Family; Student in an Organized Health Care Education/Training Program; Admitting Provider Family Medicine; Emergency Provider Emergency Medicine; PCP Family Medicine; Referring Provider Family Medicine
DX: G93.41 Metabolic encephalopathy (principal); E11.40 Type 2 diabetes mellitus with diabetic neuropathy, unspecified; E04.2 Nontoxic multinodular goiter; D50.9 Iron deficiency anemia, unspecified; E78.5 Hyperlipidemia, unspecified; F03.90 Unspecified dementia, unspecified severity, without behavioral disturbance, psychotic disturbance, mood disturbance, and anxiety; M06.9 Rheumatoid arthritis, unspecified; I10 Essential (primary) hypertension; K21.9 Gastro-esophageal reflux disease without esophagitis; I25.10 Atherosclerotic heart disease of native coronary artery without angina pectoris; M19.90 Unspecified osteoarthritis, unspecified site; I05.9 Rheumatic mitral valve disease, unspecified; R45.1 Restlessness and agitation; J02.9 Acute pharyngitis, unspecified; Z79.82 Long term (current) use of aspirin; Z79.84 Long term (current) use of oral hypoglycemic drugs; Z79.899 Other long term (current) drug therapy; Z87.891 Personal history of nicotine dependence
CPT/HCPCS: 36415; 70450; 70496; 70498; 70551; 71045; 80048; 80053; 80061; 81001; 82140; 82962; 83036; 83735; 84443; 84484; 85025; 85610; 85730; 87426; 92526; 92610; 93005; 93308; 94762; 95819; 97110; 97116; 97162; 97167; 97530; 97535; 97802; 99285; J7030; Q9967; A4216

== ENCOUNTER 2021-09-03 16:23 | Inpatient (IN) | payer MEDICARE, SELFPAY ==
[2021-09-03 16:39] VITALS: BP 158/82; PULSE 66; RESP 16; TEMP 36.6; O2SAT 95; BMI 25.7
[2021-09-03 17:25] VITALS: PULSE 66; RESP 18; O2SAT 95
--- NOTE | 2021-09-03 18:15 | NURSING ---
spoke with Chioma and she verified vaccine status, will bring in card tomorrow along with clothing and eye gtts.
[2021-09-03] MEDS: QUEtiapine 25 MG Tablet PO (18:34)
--- NOTE | 2021-09-03 20:04 | HP.PCM_ITS ---
HPI - General General Date of Admission: 09/03/21 HPI Narrative 07/24/2021 DARWIN GRUBER, is a 85 Male who presents to [facility] Emergency Department with fall. Fell getting into car, hit left forehead, slight confusion. Bloodwork okay, CT head negative. 08/31/2021 Presented to [facility] ED with neurologic signs/symptoms. Confused, trouble walking, worsening mental status, squad called. Receptive/expressive aphasia. Stroke alert, not TPA candidate. CTA head/neck negative for large vessel occlusion. 08/31/2021 Admit to Hospital. Aspirin, statin, Echo, MRI brain, PT/OT/ST for stroke. 08/31/2021 Echo EF 55-60%. Normal left ventricular systolic function. 08/31/2021 Confused, restless, agitated. 09/01/2021 Sitter, Haldol given. MRI brain negative for stroke, CTA head/neck negative. Seroquel for agitation. Consult Neurology. 09/02/2021 More alert, appropriate, sore throat. Stroke ruled out. EEG negative for seizure activity. Neurology noted delirium unknown etiology. 09/03/2021 Intermittent confusion, responsiveness. PT/OT for detention facility. 09/03/2021 Admit to TCU with debility, here for rehabilitation, strengthening, prior to discharge home with . [facility] Medical History Arthritis BPH (benign prostatic hyperplasia) Esophageal stricture Essential (primary) hypertension GERD (gastroesophageal reflux disease) Hyperlipidemia Hypomagnesemia Hyponatremia LVH (left ventricular hypertrophy) Neuropathy Premature ventricular contractions PUD (peptic ulcer disease) Rheumatoid arthritis Type 2 diabetes mellitus without complications Home Medications aspirin 81 mg tablet,delayed release 81 mg PO DAILY 07/20/20 [History Last Taken Unknown] ferrous sulfate 140 mg (45 mg iron) tablet,extended release 140 mg PO DAILY 07/20/20 [History Last Taken Unknown] magnesium oxide 500 mg PO DAILY tab 07/20/20 [History Last Taken Unknown] lansoprazole 15 mg capsule,delayed release 15 mg PO DAILY cap 07/03/21 [History Last Taken Unknown] metformin 1,000 mg tablet 1,000 mg PO BID tab 07/03/21 [History Last Taken Unknown] pioglitazone 15 mg PO DAILY 07/24/21 [History Last Taken Unknown] BromSite 1 drp RIGHT EYE QHS 08/31/21 [History Last Taken Unknown] ofloxacin 1 drp RIGHT EYE Q6H 08/31/21 [History Last Taken Unknown] lisinopril 10 mg PO DAILY 09/03/21 [History Last Taken Unknown] quetiapine 25 mg PO BID 09/03/21 [History Last Taken Unknown] Allergy/AdvReac Type Severity Reaction Status Date / Time Proton Pump Inhibitors Allergy Other Verified 08/31/21 03:41 oxycodone AdvReac Other Verified 08/31/21 03:41 Family History Father GI bleed age 42 secondary to ruptured ulcer. Mother Lupus Denied age 83, had history of Lupus. Surgical History History of left heart catheterization (11/2003) History of total hip replacement History of total right knee replacement Hx of cholecystectomy Social History household members: spouse Smoking Status: Unknown if ever smoked alcohol intake: never substance use type: does not use ROS Constitutional Constitutional: Denies chills, fever(s) or weight gain ENT HEENT: Denies headache(s), nasal congestion or nasal discharge Cardiovascular Cardiovascular: Denies chest pain or palpitations Respiratory/Chest Respiratory/Chest: Denies cough, excessive phlegm production or shortness of breath with exertion Gastrointestinal Gastrointestinal: Denies abdominal pain, nausea or vomiting Genitourinary Genitourinary: Denies dysuria Musculoskeletal Musculoskeletal: Denies joint pain or joint swelling Integumentary Integumentary: Denies rash or wounds Neurologic Neurologic: Denies focal weakness, numbness or tingling Psychiatric Psychiatric: Denies anxiety, auditory hallucinations, depression, homicidal ideation or suicidal ideation Vital Signs Vital Signs Vital Signs: 09/03/21 16:39 09/03/21 17:25 Temperature 98 F Temperature Source Temporal Pulse Rate 66 66 Pulse Rhythm Regular Pulse Strength Normal (2+) Respiratory Rate 16 18 Respiratory Effort Normal Non-Labored Respiratory Depth Normal Respiratory Pattern Normal Blood Pressure 158/82 H Blood Pressure Mean 107 Blood Pressure Source Monitor Blood Pressure Position Semi-Fowlers Blood Pressure Location Left Arm Pulse Ox 95 95 Oxygen Delivery Method Room Air Room Air Weight Weight: 86.183 kg Body Mass Index (BMI) 25.7 Physical Exam Const alert and oriented x3 General Appearance: cooperative HEENT normocephalic Eyes PERRL and EOMs intact bilaterally Neck supple, no JVD and no carotid bruits Resp normal respiratory effort, normal air movement and clear to auscultation bilaterally Cardio regular rate and regular rhythm GI normal to inspection, nondistended, normoactive bowel sounds, non-tender and non-distended Extremity normal capillary refill General Extremity: Negative for edema Skin no rashes or lesions noted General Skin Exam: no breakdown Psych affect normal Appearance: appropriate Assessment & Plan Assessment/Plan (1) Debility: (2) Encephalopathy: (3) Right hemiparesis: (4) Diabetes mellitus: (5) Rheumatoid arthritis: (6) Hypertension: (7) Hyperlipidemia: (8) Hypomagnesemia: (9) Muscle spasm: (10) Gastroesophageal reflux disease: (11) Iron deficiency anemia: PLAN: 85 year old male with below past medical history hospitalized for acute delirium, stroke ruled out, seizure unlikely, infection ruled out, admitted to TCU with debility, here for rehabilitation, strengthening, prior to discharge home with . * Debility - PT/OT. * Cognition - ST. * Pain - Tylenol 1000mg q6h prn pain (1-10). * Bowel - Miralax 17gm daily, Senna/colace 1 tablet bid, Dulcolax 10mg pr daily prn. * Adult immunization - Administer prevnar 20, fluzone, covid19 vaccine as appropriate. * DVT prophylaxis - Lovenox 40mg sc daily. * TIA - Aspirin 81mg daily. * Ocular inflammation - Bromsite 1gtt od qhs. * GERD - Lansoprazole 15mg daily. * Hypertension - Lisinopril 10mg daily. * Diabetes Mellitus II - Metformin 1000mg bidcm, Pioglitazone 15mg daily. * Conjunctivitis - Ofloxacin 1gtt od q6h. * Acute delirium - seroquel 25mg bid, GDR once resident stable.
--- NOTE | 2021-09-04 01:24 | NURSING ---
Pt continually getting up on own. Aurguing with staff about staying in bed. Stated he was getting up to find out how the bed works. Got patient up in chair. Continued to stand on own often.
[2021-09-04] MEDS: Pioglitazone Hydrochloride 15 MG Tablet PO (04:41)
[2021-09-04] MEDS: Aspirin E.C. 81 MG Tablet PO (04:41)
[2021-09-04] MEDS: Lansoprazole 15 MG Capsule.DR PO (04:42)
[2021-09-04] MEDS: QUEtiapine 25 MG Tablet PO (04:42)
[2021-09-04] MEDS: Lisinopril 10 MG Tablet PO (04:42)
[2021-09-04] MEDS: Polyethylene Glycol 3350 17 GM PACKET PO (04:43)
[2021-09-04] MEDS: Senna/Docusate Sodium 1 Tablet PO ×2 (04:44→17:18)
[2021-09-04] MEDS: Enoxaparin 40 MG/0.4 ML Syringe SC (04:44)
[2021-09-04 05:44] LABS: Absolute Lymphocyte Count 1.32 X10^3/uL (0.83-4.51); Absolute Neutrophil Count 4.9 X10^3/uL (2.0-7.7); Basophil# 0.03 X10^3/uL; Basophil% 0.4 % (0-1); Eosinophil# 0.38 X10^3/uL; Hematocrit 37.5 % (40-54); Lymphocyte # 1.32 X10^3/ul (0.83-4.51); Lymphocyte % 17.2 % (19-41); Mean Corp Hgb Conc 34.7 g/dL (32-36); Mean Corpuscular Hgb 31.3 pg (27.0-32.0); Mean Corpuscular Volume 90.1 fL (80-94); Mean Platelet Vol. 9.5 fl (6.2-12.0); Monocyte# 0.98 X10^3/uL; Monocyte% 12.8 % (0-10); NRBC Flagged by Analyzer 0 % (0-5); Neutrophil # 4.93 X10^3/uL (2.7-7.7); Neutrophil % 64.2 % (47-70); Platelet Count 194 K/mm3 (150-450); RBC Distribution Width CV 13.2 % (11.6-14.6); RBC Distribution Width SD 42.8 fl (35.1-43.9); Red Blood Count 4.16 M/mm3 (4.6-6.2); White Blood Count 7.7 K/mm3 (4.4-11.0)
[2021-09-04 06:09] LABS: Anion Gap 7 (5-15); BUN 12 mg/dL (7-18); BUN/Creat Ratio 14.4 RATIO (10-20); Calcium,Total 8.9 mg/dL (8.5-10.1); Chloride 102 mmol/L (98-107); Creatinine, Serum 0.83 mg/dL (0.70-1.30); EST Glomerular Filtration Rate 93 mL/min (>60); Est Glom Filt Rate - Afr Amer 112 mL/min (>60); Estimated Creatinine Clearance 71.42 ml/min; Glucose 159 mg/dL (74-106); Potassium 3.7 mmol/L (3.5-5.1); Sodium Level 135 mmol/L (136-145)
[2021-09-04 06:21] LABS: Bedside Glucose 161 mg/dL (70-110)
[2021-09-04] MEDS: metFORMIN HCl 1,000 MG Tablet 1000 MG PO ×2 (08:36→17:18)
[2021-09-04] MEDS: Tuberculin,Purif.prot.deriv. 50 TU/ML Vial 0.1 ML ID (10:48)
[2021-09-04 13:32] VITALS: BP 145/75; PULSE 68; RESP 15; TEMP 36.6; O2SAT 96
[2021-09-04] MEDS: OFLOXACIN 5 ML DROPS 1 ML RIGHT EYE ×2 (13:56→17:18)
[2021-09-04] MEDS: QUEtiapine 25 MG Tablet 50 MG PO ×2 (14:00→20:15)
--- NOTE | 2021-09-04 16:19 | CASEMGMT ---
Social Work Met with patient for initial assessment. Discussed code status and MOLST form. Pt wishes to bed DNR-CCA, no intubation. Nursing notified. MOLST communicated to and placed in chart. Explained [employer] insurance with NRD 09/05 and continued stay is not guaranteed with each review. The goal is for pt to return home with at [facility]. Pt was completely independent prior, no AD, driving. Pt has three children locally, but all work. Explained and provided stroke support group brochure. Pt agreeable to be added to mailing list. SW to continue to follow to assist with discharge planning. Deanna Jernigan, AMERICAN HISTORY TEACHER MACHINE I ENGRAVER
[2021-09-04 21:15] VITALS: RESP 16; O2SAT 94
[2021-09-05] MEDS: OFLOXACIN 5 ML DROPS 1 ML RIGHT EYE ×4 (00:59→18:53)
[2021-09-05] MEDS: Lansoprazole 15 MG Capsule.DR PO (05:37)
[2021-09-05] MEDS: Pioglitazone Hydrochloride 15 MG Tablet PO (05:37)
[2021-09-05] MEDS: Aspirin E.C. 81 MG Tablet PO (05:37)
[2021-09-05] MEDS: Enoxaparin 40 MG/0.4 ML Syringe SC (05:38)
[2021-09-05] MEDS: Polyethylene Glycol 3350 17 GM PACKET PO (05:38)
[2021-09-05] MEDS: Lisinopril 10 MG Tablet PO (05:38)
[2021-09-05] MEDS: Senna/Docusate Sodium 1 Tablet PO ×2 (05:38→17:59)
[2021-09-05] MEDS: QUEtiapine 25 MG Tablet 50 MG PO ×3 (05:38→22:02)
[2021-09-05 05:48] VITALS: BP 168/94; PULSE 70; RESP 16
[2021-09-05 06:31] LABS: Bedside Glucose 151 mg/dL (70-110)
[2021-09-05 06:49] VITALS: BP 147/92; PULSE 91
[2021-09-05] MEDS: metFORMIN HCl 1,000 MG Tablet 1000 MG PO ×2 (07:58→17:59)
[2021-09-05 10:00] VITALS: PULSE 71; O2SAT 100
--- NOTE | 2021-09-05 10:02 | NURSING ---
Received written orders from Dr. Mitchell to continue ofloxacin to right eye QID thru 09/06/21 then discontinue and to continue with Bromsite drops to right eye once daily until appt with Dr. Koenig.
[2021-09-05 15:33] VITALS: BP 137/71; PULSE 94; RESP 17; TEMP 36.6; O2SAT 95
[2021-09-06] MEDS: OFLOXACIN 5 ML DROPS 1 ML RIGHT EYE ×4 (01:44→17:08)
[2021-09-06] MEDS: Aspirin E.C. 81 MG Tablet PO (05:03)
[2021-09-06] MEDS: Enoxaparin 40 MG/0.4 ML Syringe SC (05:03)
[2021-09-06] MEDS: Lansoprazole 15 MG Capsule.DR PO (05:03)
[2021-09-06] MEDS: Lisinopril 10 MG Tablet PO (05:03)
[2021-09-06] MEDS: Senna/Docusate Sodium 1 Tablet PO ×2 (05:03→17:06)
[2021-09-06] MEDS: Polyethylene Glycol 3350 17 GM PACKET PO (05:03)
[2021-09-06] MEDS: QUEtiapine 25 MG Tablet 50 MG PO ×3 (05:03→22:02)
[2021-09-06] MEDS: Pioglitazone Hydrochloride 15 MG Tablet PO (05:03)
[2021-09-06 05:08] VITALS: BP 159/85; PULSE 65; RESP 18; TEMP 36.6; O2SAT 96
[2021-09-06 06:30] LABS: Bedside Glucose 158 mg/dL (70-110)
[2021-09-06] MEDS: metFORMIN HCl 1,000 MG Tablet 1000 MG PO ×2 (08:06→17:06)
[2021-09-06 10:00] VITALS: RESP 16
[2021-09-06 14:02] VITALS: BP 124/77; PULSE 83; RESP 12; TEMP 36.4; O2SAT 96
--- NOTE | 2021-09-06 14:08 | PHA.CONS1_ITS ---
Progress Note - Pharmacy Subjective: TCU ADMISSION Objective: Allergies Proton Pump Inhibitors Allergy (Verified 08/31/21 03:41) Other hyponatremia oxycodone Adverse Reaction (Verified 08/31/21 03:41) Other Current Medications Generic Name Dose Route Start Last Admin Trade Name Freq PRN Reason Stop Dose Admin Acetaminophen 1,000 mg 09/03/21 20:19 Acetaminophen 500 Mg Tablet PO Q6H PRN PRN Pain Score 1-10 Aspirin 81 mg 09/04/21 06:00 09/06/21 05:03 Aspirin E.C. 81 Mg Tablet PO 81 mg DAILY IRVING Administration Bisacodyl 10 mg 09/03/21 17:11 Bisacodyl 10 Mg Suppository RC DAILY PRN Constipation Bromfenac Sodium 1 drp 09/04/21 22:00 09/05/21 22:01 Bromfenac Sodium 1 Drop Opth.Btl RIGHT EYE 1 drp QHS IRVING Administration Enoxaparin Sodium 40 mg 09/04/21 06:00 09/06/21 05:03 Enoxaparin 40 Mg/0.4 Ml Syringe SC 40 mg DAILY@0600 IRVING Administration Lansoprazole 15 mg 09/04/21 06:00 09/06/21 05:03 Lansoprazole 15 Mg Capsule.Dr PO 15 mg DAILY IRVING Administration Lisinopril 10 mg 09/04/21 06:00 09/06/21 05:03 Lisinopril 10 Mg Tablet PO 10 mg DAILY IRVING Administration Metformin HCl 1,000 mg 09/04/21 08:00 09/06/21 08:06 Metformin Hcl 1,000 Mg Tablet PO 1,000 mg BIDCM IRVING Administration Ofloxacin 1 ml 09/04/21 12:00 09/06/21 13:23 Ofloxacin 5 Ml Drops RIGHT EYE 09/07/21 06:00 1 ml Q6 IRVING Administration Pioglitazone HCl 15 mg 09/04/21 06:00 09/06/21 05:03 Pioglitazone Hydrochloride 15 Mg Tablet PO 15 mg DAILY IRVING Administration Polyethylene Glycol 17 gm 09/04/21 06:00 09/06/21 05:03 Polyethylene Glycol 3350 17 Gm Packet PO 17 gm DAILY IRVING Administration Quetiapine Fumarate 50 mg 09/04/21 14:00 09/06/21 13:22 Quetiapine 25 Mg Tablet PO 50 mg TID IRVING Administration Senna/Docusate Sodium 1 tablet 09/04/21 06:00 09/06/21 05:03 Senna/Docusate Sodium 1 Tablet PO 1 tablet BID IRVING Administration Tuberculin PPD 0.1 ml 09/11/21 10:00 Tuberculin,Purif.Prot.Deriv. 50 Tu/Ml Vial ID 09/11/21 10:01 X1 ONE Problem List (Last Reviewed 09/03/21 @ 20:[address] Hiram Peters MD) Iron deficiency anemia (Acute) Gastroesophageal reflux disease (Acute) Muscle spasm (Acute) Hypomagnesemia (Acute) Hyperlipidemia (Acute) Hypertension (Chronic) Rheumatoid arthritis (Acute) Diabetes mellitus (Acute) Right hemiparesis (Acute) Encephalopathy (Acute) Debility (Acute) Vital Signs Temp Pulse Resp BP Pulse Ox 97.6 F L 83 12 124/77 H 96 09/06/21 14:02 09/06/21 14:02 09/06/21 14:02 09/06/21 14:02 09/06/21 14:02 Oxygen Delivery Method Room Air Weight: 86.183 kg Body Mass Index (BMI) 25.7 Sodium 135 mmol/L (136-145) L 09/04/21 05:24 Potassium 3.7 mmol/L (3.5-5.1) 09/04/21 05:24 Chloride 102 mmol/L (98-107) 09/04/21 05:24 Carbon Dioxide 26.0 mmol/L (21.0-32.0) 09/04/21 05:24 Anion Gap 7 (5-15) 09/04/21 05:24 BUN 12 mg/dL (7-18) 09/04/21 05:24 Creatinine 0.83 mg/dL (0.70-1.30) 09/04/21 05:24 Est GFR (MDRD) Af Amer 112 mL/min (>60) 09/04/21 05:24 Est GFR (MDRD) Non-Af 93 mL/min (>60) 09/04/21 05:24 BUN/Creatinine Ratio 14.4 RATIO (10-20) 09/04/21 05:24 Glucose 159 mg/dL (74-106) H 09/04/21 05:24 Assessment/Plan: 1. Pain: Tylenol 1000mg PO Q6h PRN Pain 1-10. Please continue to monitor for increased/decreased S/S pain, PRN medication usage. 2. HTN/ TIA/ CV Prophylaxis: Aspirin 81mg PO Daily, Lisinopril 10mg PO Daily. Please continue to monitor for S/S bleeding/bruising, renal function, BP, electrolytes. 3. Type II Diabetes: Metformin 1000mg PO BID, Actos 15mg PO Daily. Please continue to monitor for S/S hypoglycemia, A1c as clinically indicated. 4. GERD: Prevacid 15mg PO Daily. Please continue to monitor for S/S GERD exacerbations. may also encourage non-pharmacologic treatment to help minimize flare-ups. *5. Conjunctivitis: Ofloxacin 1gtt Right Eye Q6h. Please continue to monitor for resolution of infection. Please evaluate for a stop date, none currently entered on order, thank you. *6. Ocular inflammation: Bromfenac 1gtt right eye QHS. Please continue to monitor for medication effectiveness. Please evaluate use to determine if exterminator helper use is appropriate, thank you. 7. DVT Prophylaxis: Lovenox 40mg SC Daily. Please continue to monitor renal function, S/S bleeding/bruising. Psychotropic Medications: 8. Acute Delirium: Seroquel 50mg PO TID. Per H/P, will plan on GDR once patient has stabilized. Unnecessary Medications: None Bowel Regimen: Miralax 17g PO Daily, Senna/Docusate 1 tab PO BID, Dulcolax 10mg CA Daily PRN. Please continue to monitor for increased/ decreased constipation and/or diarrhea. Date of Note:: 09/06/21
[2021-09-07] MEDS: OFLOXACIN 5 ML DROPS 1 ML RIGHT EYE ×2 (00:45→05:03)
[2021-09-07] MEDS: Lisinopril 10 MG Tablet PO (05:02)
[2021-09-07] MEDS: QUEtiapine 25 MG Tablet 50 MG PO ×3 (05:02→22:01)
[2021-09-07] MEDS: Aspirin E.C. 81 MG Tablet PO (05:02)
[2021-09-07] MEDS: Senna/Docusate Sodium 1 Tablet PO ×2 (05:02→17:09)
[2021-09-07] MEDS: Enoxaparin 40 MG/0.4 ML Syringe SC (05:02)
[2021-09-07] MEDS: Polyethylene Glycol 3350 17 GM PACKET PO (05:03)
[2021-09-07] MEDS: Lansoprazole 15 MG Capsule.DR PO (05:03)
[2021-09-07] MEDS: Pioglitazone Hydrochloride 15 MG Tablet PO (05:03)
[2021-09-07 05:08] VITALS: BP 157/73; PULSE 62; RESP 18; TEMP 36.8; O2SAT 97
[2021-09-07 06:01] LABS: Bedside Glucose 151 mg/dL (70-110)
[2021-09-07] MEDS: metFORMIN HCl 1,000 MG Tablet 1000 MG PO ×2 (09:32→17:09)
[2021-09-07] MEDS: Acetaminophen 500 MG Tablet 1000 MG PO (09:36)
[2021-09-07 10:00] VITALS: PULSE 60; RESP 18; O2SAT 92
--- NOTE | 2021-09-07 12:40 | CASEMGMT ---
Social Work Spoke with patient and family about request to DC home soon. Collaborated with therapists on level of functioning. Explained to family that pt is very impulsive, poor cognition and awareness. Recommending 24/7 care. Functionally, he is making progress, but is still inconsistent. Some days pt is CGA with no walker, other days he is modx2. Therapy would like to continue working with pt on further improvement for a safe transition home. Explained HHC or OP therapy will only be 30-60 mins, 2-3x/wk. Cautioned, regardless of functional level, pt will need 24/7 supervision at home. Provided nonskilled HHC list to begin arranging assistance. Encouraged to remain through care plan meeting to hear pt's progress and levels, then possible DC 09/13, if pt is adamant. Explained insurance will play a role in DC time frame also. Still awaiting outcome from 09/05, but will see when the NRD will be. Pt and family expressed understanding and agreeable. SW to continue to follow. Deanna Jernigan, LOG CHIPPER OPERATOR DIRECTOR PRESALES
[2021-09-07 14:54] VITALS: BP 120/69; PULSE 67; RESP 12; TEMP 36.2; O2SAT 96
--- NOTE | 2021-09-07 14:59 | NURSING ---
Resident and spouse, Chioma, notified of a resident and staff member testing positive for COVID.
--- NOTE | 2021-09-07 16:17 | NURSING ---
PT OWN EYE DROPS WAS GIVEN TO TO TAKE HOME PER HER REQUEST.
--- NOTE | 2021-09-07 16:25 | NURSING ---
PER THERAPY,PT IS ALLOWED TO STAND PT UP TO STRETCH AND SIT BACK DOWN,BUT NOT TO WALK. RN AWARE
[2021-09-08 06:31] LABS: Bedside Glucose 145 mg/dL (70-110)
[2021-09-08] MEDS: QUEtiapine 25 MG Tablet 50 MG PO ×3 (06:40→21:35)
[2021-09-08] MEDS: Senna/Docusate Sodium 1 Tablet PO ×2 (06:40→16:52)
[2021-09-08] MEDS: Lisinopril 10 MG Tablet PO (06:40)
[2021-09-08] MEDS: Lansoprazole 15 MG Capsule.DR PO (06:40)
[2021-09-08] MEDS: Polyethylene Glycol 3350 17 GM PACKET PO (06:40)
[2021-09-08] MEDS: Pioglitazone Hydrochloride 15 MG Tablet PO (06:40)
[2021-09-08] MEDS: Enoxaparin 40 MG/0.4 ML Syringe SC (06:41)
[2021-09-08] MEDS: Aspirin E.C. 81 MG Tablet PO (06:41)
[2021-09-08] MEDS: metFORMIN HCl 1,000 MG Tablet 1000 MG PO ×2 (07:41→16:52)
[2021-09-08] MEDS: Acetaminophen 500 MG Tablet 1000 MG PO (13:17)
[2021-09-08 13:46] VITALS: BP 131/68; PULSE 96; RESP 16; TEMP 36.3; O2SAT 96
[2021-09-09 05:56] LABS: Bedside Glucose 142 mg/dL (70-110)
[2021-09-09 06:00] VITALS: BP 139/85; PULSE 60
[2021-09-09] MEDS: Polyethylene Glycol 3350 17 GM PACKET PO (06:00)
[2021-09-09] MEDS: Lansoprazole 15 MG Capsule.DR PO (06:01)
[2021-09-09] MEDS: Senna/Docusate Sodium 1 Tablet PO ×2 (06:01→16:14)
[2021-09-09] MEDS: QUEtiapine 25 MG Tablet 50 MG PO ×3 (06:01→21:37)
[2021-09-09] MEDS: Lisinopril 10 MG Tablet PO (06:01)
[2021-09-09] MEDS: Pioglitazone Hydrochloride 15 MG Tablet PO (06:02)
[2021-09-09] MEDS: Enoxaparin 40 MG/0.4 ML Syringe SC (06:02)
[2021-09-09] MEDS: metFORMIN HCl 1,000 MG Tablet 1000 MG PO ×2 (08:41→16:12)
[2021-09-09] MEDS: Aspirin E.C. 81 MG Tablet PO (08:41)
[2021-09-09] MEDS: Acetaminophen 500 MG Tablet 1000 MG PO (08:51)
[2021-09-09 15:51] VITALS: BP 120/72; PULSE 82; RESP 16; TEMP 36.9; O2SAT 98
--- NOTE | 2021-09-09 16:14 | NURSING ---
RN observing camera, patient seen walking in room. RN entered room found standing next to chair. Spouse had deactivated the alarm. Spouse and patient reminded patient is not allowed to walk unless a staff member is present. Patient and spouse verbalized understanding.
[2021-09-10 05:31] VITALS: BP 135/70; PULSE 70
[2021-09-10] MEDS: Enoxaparin 40 MG/0.4 ML Syringe SC (05:35)
[2021-09-10] MEDS: Pioglitazone Hydrochloride 15 MG Tablet PO (05:35)
[2021-09-10] MEDS: Acetaminophen 500 MG Tablet 1000 MG PO ×2 (05:36→22:12)
[2021-09-10] MEDS: QUEtiapine 25 MG Tablet 50 MG PO ×3 (05:36→20:39)
[2021-09-10] MEDS: Polyethylene Glycol 3350 17 GM PACKET PO (05:37)
[2021-09-10] MEDS: Lisinopril 10 MG Tablet PO (05:37)
[2021-09-10] MEDS: Lansoprazole 15 MG Capsule.DR PO (05:37)
[2021-09-10] MEDS: Senna/Docusate Sodium 1 Tablet PO ×2 (05:40→17:23)
[2021-09-10 06:31] LABS: Bedside Glucose 163 mg/dL (70-110)
[2021-09-10] MEDS: Aspirin E.C. 81 MG Tablet PO (08:10)
[2021-09-10] MEDS: metFORMIN HCl 1,000 MG Tablet 1000 MG PO ×2 (08:12→17:23)
--- NOTE | 2021-09-10 11:36 | NURSING ---
THIS NURSE NOTICED PT BOTTOM LEFT SIDE OF LIP WAS RED AND SWOLLEN. ASKED PT WHAT HAPPENED,PT STATED HE BITE HIS LIP EARLIER AND DIDNT WANT TO MAKE A BIG DEAL OUT OF IT. RN AWARE.
--- NOTE | 2021-09-10 13:34 | NURSING ---
TOLD PT ABOUT HIS LIP AND PT SAYING HE BITE IT, STATED IT WAS A COLD SORE STARTING CAUSE HE GETS THEM. RN AWARE
[2021-09-10 14:58] VITALS: BP 127/73; PULSE 80; RESP 17; TEMP 36.4; O2SAT 99
--- NOTE | 2021-09-10 16:29 | CASEMGMT ---
Social Work Spoke with about request for pt to DC. She completed family training with therapy and is comfortable taking pt home. IDT in agreement. Pt requesting to DC home 09/12, does not want care plan meeting, and would outpatient therapy at [facility]. Referral made for PT/OT/ST. No DME needs. to transport. Plan: DC home with 09/12, [facility] PT/OT/ST SINDHU CarrilloW
--- NOTE | 2021-09-10 18:40 | PCM.DC.SUM ---
Providers Date of Admission: 09/03/21 Primary Care Physician: Dr. Avery Joseph MD Reason For Visit: STROKE Diagnosis Discharge Diagnosis (1) Debility: Status: Acute Code(s): R53.81 - Other malaise (2) Encephalopathy: Status: Acute Code(s): G93.40 - Encephalopathy, unspecified (3) Right hemiparesis: Status: Acute Code(s): G81.91 - Hemiplegia, unspecified affecting right dominant side (4) Diabetes mellitus: Status: Acute Code(s): E11.9 - Type 2 diabetes mellitus without complications (5) Rheumatoid arthritis: Status: Acute Code(s): M06.9 - Rheumatoid arthritis, unspecified (6) Hypertension: Status: Chronic Code(s): I10 - Essential (primary) hypertension (7) Hyperlipidemia: Status: Acute Code(s): E78.5 - Hyperlipidemia, unspecified (8) Hypomagnesemia: Status: Acute Code(s): E83.42 - Hypomagnesemia (9) Muscle spasm: Status: Acute Code(s): M62.838 - Other muscle spasm (10) Gastroesophageal reflux disease: Status: Acute Code(s): K21.9 - Gastro-esophageal reflux disease without esophagitis (11) Iron deficiency anemia: Status: Acute Code(s): D50.9 - Iron deficiency anemia, unspecified Medications at Discharge Home Medications aspirin 81 mg tablet,delayed release 81 mg PO DAILY 07/20/20 lansoprazole 15 mg capsule,delayed release 15 mg PO DAILY cap 07/03/21 metformin 1,000 mg tablet 1,000 mg PO BID tab 07/03/21 pioglitazone 15 mg PO DAILY 07/24/21 BromSite 1 drp RIGHT EYE QHS 08/31/21 lisinopril 10 mg PO DAILY 09/03/21 quetiapine 50 mg PO TID 30 Days #180 tab 09/10/21 Hospital Course Operations None Procedures None Summary of Care Provided Minutes Spent on Discharge: 35 Hospital Course: 85 year old male with below past medical history hospitalized for acute delirium, stroke ruled out, seizure unlikely, infection ruled out, admitted to TCU with debility, here for rehabilitation, strengthening, prior to discharge home with . [facility] Physical Exam Const alert and oriented x3 General Appearance: cooperative HEENT normocephalic Eyes PERRL and EOMs intact bilaterally Neck supple, no JVD and no carotid bruits Resp normal respiratory effort, normal air movement and clear to auscultation bilaterally Cardio regular rate and regular rhythm GI normal to inspection, nondistended, normoactive bowel sounds, non-tender and non-distended Extremity normal capillary refill General Extremity: Negative for edema Skin no rashes or lesions noted General Skin Exam: no breakdown Psych affect normal Appearance: appropriate Weight / BMI Weight Weight: 86.183 kg Body Mass Index (BMI) 25.7 ABG / Lab / Microbiology Data Result Diagrams: 09/04/21 05:24 09/04/21 05:24 Laboratory: Laboratory Results - last 24 hr 09/10/21 06:20: POC Glucose 163 H Microbiology: Microbiology 09/10/21 Unknown Nasal Secretion SARS-CoV-2 Antigen (Rapid) - Final D/C Instructions Discharge Diet: No restrictions Discharge Activity: Return to Normal Activity, May Shower and Use Walker Weight Bearing Status: Weight bearing as tolerated Call your doctor if you observe: Fever of 101 or Higher, Inability to urinate, Inability to have a bowel movement, Shortness of breath, Dizziness, Fainting spells, Swelling in the ankles, Chest pain and Uncontrolled pain Additional Instructions: Discharge home with 09/12/2021, [facility] PT/OT/ST. Meaningful Use Info Meaningful Use Diagnoses (Choose all that apply): None applicable Discharge Plan Admission Admit Date/Time: 09/03/21 16:23 Primary Reason for Your Visit: Debility. Attending Provider: Hiram Peters Chi Primary Care Provider: Avery Joseph Instructions Additional Instructions / Restrictions: Discharge home with 09/12/2021, [facility] PT/OT/ST. Discharge Orders/Prescriptions Prescriptions: New quetiapine 25 mg Tablet 50 mg PO TID 30 Days Qty: 180 RF: 0 Continued aspirin [Adult Aspirin Regimen] 81 mg tablet,delayed release (DR/EC) 81 mg PO DAILY RF: 0 metformin 1,000 mg tablet 1,000 mg PO BID RF: 0 lansoprazole 15 mg capsule,delayed release(DR/EC) 15 mg PO DAILY RF: 0 pioglitazone 15 mg tablet 15 mg PO DAILY RF: 0 BromSite 0.075 % drops 1 drp RIGHT EYE QHS RF: 0 lisinopril 10 mg tablet 10 mg PO DAILY RF: 0 Discontinued ferrous sulfate 140 mg (45 mg iron) tablet extended release 140 mg PO DAILY RF: 0 magnesium oxide 250 mg magnesium tablet 500 mg PO DAILY RF: 0 ofloxacin 0.3 % drops 1 drp RIGHT EYE Q6H RF: 0 quetiapine 25 mg tablet 25 mg PO BID RF: 0 Referrals / Follow Up: Hiram Peters Chi, MD [COURTESY STAFF PHYSICIAN] - Within 1 Week Disposition Disposition (needs filled in before D/C Order can be placed): Home, Self Care
[2021-09-10] MEDS: Acyclovir 200 MG Capsule 400 MG PO (20:39)
[2021-09-10 20:57] VITALS: PULSE 77; RESP 16; O2SAT 96
[2021-09-11] MEDS: Acyclovir 200 MG Capsule 400 MG PO ×5 (05:08→20:02)
[2021-09-11] MEDS: Lisinopril 10 MG Tablet PO (05:08)
[2021-09-11] MEDS: Polyethylene Glycol 3350 17 GM PACKET PO (05:08)
[2021-09-11] MEDS: Lansoprazole 15 MG Capsule.DR PO (05:08)
[2021-09-11] MEDS: Pioglitazone Hydrochloride 15 MG Tablet PO (05:08)
[2021-09-11] MEDS: Enoxaparin 40 MG/0.4 ML Syringe SC (05:08)
[2021-09-11] MEDS: Senna/Docusate Sodium 1 Tablet PO ×2 (05:08→17:24)
[2021-09-11] MEDS: QUEtiapine 25 MG Tablet 50 MG PO ×3 (05:08→20:01)
[2021-09-11 05:21] VITALS: BP 147/89; PULSE 69
[2021-09-11 06:05] LABS: Absolute Lymphocyte Count 1.47 X10^3/uL (0.83-4.51); Absolute Neutrophil Count 3.9 X10^3/uL (2.0-7.7); Basophil# 0.06 X10^3/uL; Basophil% 0.9 % (0-1); Eosinophil# 0.45 X10^3/uL; Eosinophils% 6.8 % (0-5); Hemoglobin 12.8 g/dL (13.0-16.5); Lymphocyte # 1.47 X10^3/ul (0.83-4.51); Lymphocyte % 22.2 % (19-41); Mean Corp Hgb Conc 33.7 g/dL (32-36); Mean Corpuscular Hgb 30.7 pg (27.0-32.0); Mean Corpuscular Volume 91.1 fL (80-94); Mean Platelet Vol. 9.8 fl (6.2-12.0); Monocyte# 0.75 X10^3/uL; Monocyte% 11.3 % (0-10); NRBC Flagged by Analyzer 0 % (0-5); Neutrophil # 3.86 X10^3/uL (2.7-7.7); Neutrophil % 58.5 % (47-70); Platelet Count 248 K/mm3 (150-450); Red Blood Count 4.17 M/mm3 (4.6-6.2); White Blood Count 6.6 K/mm3 (4.4-11.0)
[2021-09-11 06:36] LABS: Bedside Glucose 137 mg/dL (70-110)
[2021-09-11 06:38] LABS: Anion Gap 6 (5-15); BUN 22 mg/dL (7-18); BUN/Creat Ratio 21.2 RATIO (10-20); Calcium,Total 9.6 mg/dL (8.5-10.1); Chloride 96 mmol/L (98-107); Creatinine, Serum 1.04 mg/dL (0.70-1.30); EST Glomerular Filtration Rate 72 mL/min (>60); Est Glom Filt Rate - Afr Amer 87 mL/min (>60); Glucose 122 mg/dL (74-106); Potassium 4.3 mmol/L (3.5-5.1); Sodium Level 129 mmol/L (136-145)
[2021-09-11] MEDS: metFORMIN HCl 1,000 MG Tablet 1000 MG PO ×2 (08:14→17:24)
[2021-09-11] MEDS: Aspirin E.C. 81 MG Tablet PO (08:14)
[2021-09-11 15:13] VITALS: BP 134/63; PULSE 77; RESP 16; TEMP 36.2; O2SAT 96
[2021-09-12] MEDS: Senna/Docusate Sodium 1 Tablet PO (04:56)
[2021-09-12] MEDS: Pioglitazone Hydrochloride 15 MG Tablet PO (04:56)
[2021-09-12] MEDS: Lisinopril 10 MG Tablet PO (04:56)
[2021-09-12] MEDS: Lansoprazole 15 MG Capsule.DR PO (04:56)
[2021-09-12] MEDS: Acyclovir 200 MG Capsule 400 MG PO ×2 (04:57→09:54)
[2021-09-12] MEDS: QUEtiapine 25 MG Tablet 50 MG PO (04:57)
[2021-09-12] MEDS: Polyethylene Glycol 3350 17 GM PACKET PO (04:58)
[2021-09-12] MEDS: Enoxaparin 40 MG/0.4 ML Syringe SC (04:58)
[2021-09-12 05:13] VITALS: PULSE 74; RESP 16; O2SAT 95
[2021-09-12 05:23] VITALS: BP 158/89; PULSE 74; RESP 16; O2SAT 95
[2021-09-12 06:36] LABS: Bedside Glucose 147 mg/dL (70-110)
[2021-09-12] MEDS: metFORMIN HCl 1,000 MG Tablet 1000 MG PO (07:43)
[2021-09-12] MEDS: Aspirin E.C. 81 MG Tablet PO (07:43)
--- NOTE | 2021-09-12 10:23 | NURSING ---
reviewed DC instructions with and daughter, Carmen. answered questions. Dr Peters notified regarding pt needing acyclovir script for cold sore.
--- NOTE | 2021-09-14 14:00 | MDS.RN ---
Information for the mds was obtained from review of the clinical record, interview of resident, staff, and direct observation of resident 'care.
== END 2021-09-12 10:28 | disposition home or self-care (01) | DRG 57 ==
PROVIDERS: Admitting Provider Family Medicine Geriatric Medicine; PCP Family Medicine; Visit Provider Family Medicine Geriatric Medicine
DX: G81.91 Hemiplegia, unspecified affecting right dominant side (principal); E11.40 Type 2 diabetes mellitus with diabetic neuropathy, unspecified; E78.5 Hyperlipidemia, unspecified; D50.9 Iron deficiency anemia, unspecified; H10.9 Unspecified conjunctivitis; M06.9 Rheumatoid arthritis, unspecified; I10 Essential (primary) hypertension; K21.9 Gastro-esophageal reflux disease without esophagitis; M62.838 Other muscle spasm; M19.90 Unspecified osteoarthritis, unspecified site; R26.2 Difficulty in walking, not elsewhere classified; R41.0 Disorientation, unspecified; Z91.81 History of falling; Z79.82 Long term (current) use of aspirin; Z79.84 Long term (current) use of oral hypoglycemic drugs; Z79.899 Other long term (current) drug therapy
CPT/HCPCS: 36415; 80048; 82962; 85025; 87426; 92507; 92523; 92526; 92610; 97110; 97116; 97162; 97166; 97530; 97535; 97802

== ENCOUNTER 2021-10-08 15:47 | Outpatient (CLI) | payer MEDICARE, SELFPAY ==
[2021-10-08 17:56] LABS: Absolute Lymphocyte Count 2.08 X10^3/uL (0.83-4.51); Absolute Neutrophil Count 4.1 X10^3/uL (2.0-7.7); Basophil# 0.03 X10^3/uL; Basophil% 0.4 % (0-1); Eosinophil# 0.26 X10^3/uL; Eosinophils% 3.6 % (0-5); Hematocrit 41.1 % (40-54); Hemoglobin 13.9 g/dL (13.0-16.5); Lymphocyte # 2.08 X10^3/ul (0.83-4.51); Lymphocyte % 28.4 % (19-41); Mean Corp Hgb Conc 33.8 g/dL (32-36); Mean Corpuscular Hgb 31.1 pg (27.0-32.0); Mean Corpuscular Volume 91.9 fL (80-94); Mean Platelet Vol. 10.7 fl (6.2-12.0); Monocyte# 0.79 X10^3/uL; Monocyte% 10.8 % (0-10); NRBC Flagged by Analyzer 0 % (0-5); Neutrophil # 4.14 X10^3/uL (2.7-7.7); Neutrophil % 56.5 % (47-70); Platelet Count 195 K/mm3 (150-450); RBC Distribution Width CV 12.8 % (11.6-14.6); RBC Distribution Width SD 43.6 fl (35.1-43.9); Red Blood Count 4.47 M/mm3 (4.6-6.2); White Blood Count 7.3 K/mm3 (4.4-11.0)
[2021-10-08 18:19] LABS: ALB/GLOB Ratio 1.3 RATIO (0.9-2.4); AST(SGOT) 17 U/L (15-37); Alanine Aminotransfer ALT/SGPT 17 U/L (16-61); Albumin, Serum 3.9 g/dL (3.2-5.0); Alkaline Phosphatase 44 U/L (45-117); Anion Gap 4 (5-15); BUN 18 mg/dL (7-18); BUN/Creat Ratio 16.8 RATIO (10-20); Calcium,Total 9.4 mg/dL (8.5-10.1); Chloride 98 mmol/L (98-107); Creatinine, Serum 1.07 mg/dL (0.70-1.30); EST Glomerular Filtration Rate 70 mL/min (>60); Est Glom Filt Rate - Afr Amer 84 mL/min (>60); Glucose 122 mg/dL (74-106); Potassium 4.1 mmol/L (3.5-5.1); Protein, Total 6.9 g/dL (6.4-8.2); Sodium Level 131 mmol/L (136-145)
== END 2021-10-08 23:59 | disposition home or self-care (01) ==
LOC: MTLAB 15:48
PROVIDERS: PCP Family Medicine; Referring Provider Internal Medicine Rheumatology; Visit Provider Internal Medicine Rheumatology
DX: M06.4 Inflammatory polyarthropathy (principal); E11.9 Type 2 diabetes mellitus without complications; R76.8 Other specified abnormal immunological findings in serum; M18.0 Bilateral primary osteoarthritis of first carpometacarpal joints; M17.0 Bilateral primary osteoarthritis of knee; I10 Essential (primary) hypertension; K21.9 Gastro-esophageal reflux disease without esophagitis; K22.2 Esophageal obstruction; Z96.651 Presence of right artificial knee joint; Z79.899 Other long term (current) drug therapy
CPT/HCPCS: 36415; 80053; 85025

== ENCOUNTER 2021-10-15 11:30 | Outpatient (RCR) | payer MEDICARE, SELFPAY ==
--- NOTE | 2021-09-20 17:05 | HP.PTEVAL ---
Patient's Visit Information DARWIN GRUBER is a 85 year old M referred to Physical Therapy by Dr. Hiram Peters MD with a diagnosis of CVA. Date of Evaluation: 09/20/21 Physical Therapist: Álvaro Botello PT, ATC - Visit Plan Frequency: 2-3x /Week Duration: 4-6 Weeks Plan: Gait training, balance and proprio, B LE strengthening, nustep, and HEP - Subjective CVA 3 weeks ago. Pt reports he was in the hospital for 10 days and then has been home since. Pt reports he feels like he has really not changed a lot since having the stroke with the exception of balance and endurance. Pt reports he has not had any falls since having his stroke. Pt reports he did have a Hx of falls prior to the stroke. Pt reports he has stairs at home, but doesnt have to negotiate them on a daily basis. Pt notes he can feel his feet, but he has peripheral neuropathy and does have altered sensation. Pt reports he does notice that he tends to drift to the left and the right sometimes while he is ambulating. Pt reports his major goal for coming here to day is to improve his walking distance and balance. Pt reports he does have some LBP currently which does limit his ability to ambulate. Pt reports he likes to play golf as a hobby. - Objective Neuro: B LE sensation is WNL to light touch. B patellar reflex= 2/3. MMT: B LE's are grossly 4+/5 throughout. ROM: B LE's are WFL. Gait: Pt is able to ambulate approximately 140 feet until requesting to rest secondary to fatigue and LBP. FGA: 12/17 - Balance/Special Test Scores Functional Gait Assessment Score: 5 % Disability: 83.3400 Lower Extremity Functional Score: 21 - Goals Goal 1:: Increase B LE strength x 1/2 grade to aid with stair negotiatiion Goal Time Frame: 4-6 Weeks Goal 2:: Increrase FGA score x 5 points to aid with preventing future falls Goal Time Frame: 4-6 Weeks Goal 3:: Pt will be able to ambulate 340 feet with LRD to aid with I with community ambulation Goal Time Frame: 4-6 Weeks Goal 4:: I with HEP Goal Time Frame: 4-6 Weeks - Rehabilitation Potential Physical Therapy Diagnosis: Pt has B LE weakness, difficulty with ambulation, and decreased balance secondary to CVA Rehabilitation Potential: Good - Anticipated Interventions Patient/Client Instruction: Educate patient on: Condition, Plan of Care For the Purpose of:: To improve self management Therapeutic Exercise to Include: Strength training, Endurance training, Balance training, Gait and locomotor training For the Purpose of:: To improve muscle performance and motor function, To increase tolerance to activity/condition/position, To improve gait and locomotor functions Thank you for the opportunity to evaluate your patient. For Medicare and Medicare HMO plans, please review the plan of care and approve it. It will need to be FAXED BACK to us at [phone] for Medicare purposes. For Medicare only, by signing this I certify the plan of care. Please let me know if there are questions or concerns regarding this plan of care. Physician Signature: Date:
--- NOTE | 2021-09-28 11:20 | HP.OTEVAL_ITS ---
Patient's Visit Information DARWIN GRUBER is a 85 year old M, referred to Occupational Therapy by Dr. Hiram Peters MD, with a diagnosis of CVA. Date of Evaluation: 09/17/21 Occupational Therapist: Mitra Hutchinson, OTR/Juanjo, CHT - Subjective This 85 year old male was seen for OT eval with dx of CVA/TIA. pt states this happened about 3-4 weeks ago. Pt states he thinks he just fell-. pt states he had a fall at home- pt states he thinks maybe his was home with him- pt states he was having good and bad days - but per pt said his medication may have caused a stroke -. pt is right handed. per scheduling pts canceled pts physical therapy eval and did not reschedule - ADLs Comments: pt states he lives with his in a one story home. exercise 3 days a week at [facility]. just started using WW since this incident on 08/31/21 - Objective pt ambulating with ww- pushing forward with UE and leaning forward- will stop and bring himself into WW. pt ambulation is poor and limited endurance to ambulate 100 feet-. fair dynamic standing balance - ROM Shoulder: right 155 left limited from RTC sx - Strength Shoulder: right 4/5 left 4-/5 could be due to hx of RTC injury Elbow: right 4/5 left 4/5 Clothing Manager: right 65# left 60# Lateral Pinch: right 12# left 8# Tripod Pinch: right 10# left 10# Strength Comments: pt demo with bilateral thumb OA deformity/instability - Quick DASH-Disab of Arm,Shoulder& Hand Quick DASH Score: 47.7250 - Goals Goal:: pt will demo KWAME functional transfers from chair or mat table to increase safe mobility in his environment by d/c Goal:: pt will demo good dyn standing balance while reaching for items (wts) at table top level for 10 min to simulate self care tasks by dc Goal:: pt will demo the ability to ind. mtg his health and wellness routine to return to his daily schedule at KWAME level by dc - Rehabilitation General Assessment: pt demo with generalized weakness limiting pts ind. with safe functional mobility- pt using ww but and is CGA - Liz with transfers- pt needs cues to push from arms of chairs instead of pull. pt demo with a decline in functional strength and endurance to safely perform IADls and ADLS. pt would benefit from skilled OT services 2-3x week for 6 weeks to assist pts return to PLOF and return to his health and wellness program. Rehabilitation Potential: Good - Anticipated Interventions Strengthening, ADL Training, Education re assistive Equipment, Caregiver Jeremiah dejesus, Home Program - Visit Plan Frequency: 1-2x /Week Duration: 4 Weeks General Plan: pt to schedule but does not feel it is necessary would like to get his legs stronger and will cont. with physical therapy. TEXT: Thank you for the opportunity to evaluate your patient. For Medicare and Medicare HMO plans, please review the plan of care and approve it. It will need to be FAXED BACK to us at [phone] for Medicare purposes. Please let me know if there are questions or concerns regarding this plan of care. Physician Signature: Date:
--- NOTE | 2022-01-03 15:36 | HP.PT.NRP ---
DARWIN GRUBER was seen in my office for initial evaluation on 09/20/21. The following Plan of Care was established for this patient: Initial Frequency: 2-3x /Week Initial Duration: 4-6 Weeks Patient/Client Instruction: Educate patient on: Condition, Plan of Care For the Purpose of:: To improve self management Therapeutic Exercise to Include: Strength training, Endurance training, Balance training, Gait and locomotor training For the Purpose of:: To improve muscle performance and motor function, To increase tolerance to activity/condition/position, To improve gait and locomotor functions This patient was last seen in our office . Pertinent comments regarding their Physical therapy will appear below: Pt was treated for 6 PT visits for debility from CVA through the date of 10/15/21. Pt has not returned through todays date and is discontinued at this time At this point I will be discontinuing this patient from physical therapy. I would be happy to see this patient again in the future if found appropriate by the physician. Thank you! Álvaro Botello, PT, ATC Balance/Gait/Functional tests - Balance/Special Test Scores Functional Gait Assessment Score: 5 % Disability: 83.3400 Lower Extremity Functional Score: 21
== END 2021-10-15 19:00 | disposition home or self-care (01) ==
LOC: PT 11:30
PROVIDERS: PCP Family Medicine; Referring Provider Family Medicine; Visit Provider Family Medicine Geriatric Medicine
DX: Z86.73 Personal history of transient ischemic attack (TIA), and cerebral infarction without residual deficits (principal)
CPT/HCPCS: 97110; 97161; 97166

== ENCOUNTER 2021-10-24 16:04 | Emergency (ER) | payer MEDICARE, SELFPAY ==
[2021-10-24 16:05] VITALS: BP 188/95; PULSE 71; RESP 20; TEMP 36.8; O2SAT 98; BMI 20.5
[2021-10-24 16:10] VITALS: BMI 26.4
[2021-10-24 16:11] VITALS: BP 188/95; PULSE 72; RESP 11
--- NOTE | 2021-10-24 16:15 | CT_ITS ---
STUDY: CT BRAIN WITHOUT CONTRAST REASON FOR EXAM: Male, 85 years old. confusion RADIATION DOSAGE (If Supplied By Facility): CTDIvol = ( 44.99 ) mGy, DLP = ( 796.11 ) mGycm TECHNIQUE: Transaxial CT imaging of the brain was performed without administration of intravenous contrast material. Individualized dose optimization techniques were used for this CT. COMPARISON: 08/31/2021 FINDINGS: Normal soft tissue structures. Normal calvarium. There is mild cerebral atrophy with widening of the extra-axial spaces and ventricular dilatation. There are areas of decreased attenuation within the white matter tracts of the supratentorial brain, consistent with microvascular disease changes. Normal basal ganglia and thalami. Normal brainstem. Normal cerebellum. There is no intracranial hemorrhage. There are no findings of an acute ischemic infarction. Normal visualized paranasal sinuses. CT/Brain/Head without Contrast IMPRESSION: No acute intracranial hemorrhage or mass effect. Electronically Signed: Delfino Singer MD (Brooks) at 16:44 EDT ,
--- NOTE | 2021-10-24 16:16 | EKG12_ITS ---
Test Reason : NEURO S/SX Blood Pressure : / mmHG Vent. Rate : 067 BPM Atrial Rate : 067 BPM P-R Int : 150 ms QRS Dur : 106 ms QT Int : 434 ms P-R-T Axes : 000 034 025 degrees QTc Int : 458 ms Sinus rhythm with Premature supraventricular complexes Otherwise normal ECG Confirmed by LEXY ESCOBAR, ANTONIO ([id number]), newspaper or periodical editor CHAPIN VIDAL ([id number]) on 10/31/2021 10:55:15 AM Referred By: ORVILLE/JUAN Confirmed By:ANTONIO PUGH MD
[2021-10-24 16:35] LABS: Absolute Lymphocyte Count 1.22 X10^3/uL (0.83-4.51); Absolute Neutrophil Count 5.8 X10^3/uL (2.0-7.7); Basophil# 0.03 X10^3/uL; Basophil% 0.4 % (0-1); Eosinophil# 0.19 X10^3/uL; Eosinophils% 2.5 % (0-5); Hematocrit 39.4 % (40-54); Hemoglobin 12.9 g/dL (13.0-16.5); Lymphocyte # 1.22 X10^3/ul (0.83-4.51); Lymphocyte % 15.7 % (19-41); Mean Corp Hgb Conc 32.7 g/dL (32-36); Mean Corpuscular Hgb 30.3 pg (27.0-32.0); Mean Corpuscular Volume 92.5 fL (80-94); Mean Platelet Vol. 10.5 fl (6.2-12.0); Monocyte# 0.51 X10^3/uL; Monocyte% 6.6 % (0-10); NRBC Flagged by Analyzer 0 % (0-5); Neutrophil # 5.77 X10^3/uL (2.7-7.7); Neutrophil % 74.4 % (47-70); Platelet Count 180 K/mm3 (150-450); RBC Distribution Width CV 12.7 % (11.6-14.6); Red Blood Count 4.26 M/mm3 (4.6-6.2); White Blood Count 7.8 K/mm3 (4.4-11.0)
--- NOTE | 2021-10-24 16:35 | RAD_ITS ---
INDICATION: confusion EXAMINATION/TECHNIQUE: X-RAY - XR Chest 1 View COMPARISON: 08/31/2021. FINDINGS: The lungs are clear. The cardiomediastinal silhouette is unremarkable. No pleural effusion or pneumothorax. No acute osseous abnormalities. Left-sided shoulder arthroplasty. RAD/Chest 1 View (Portable) IMPRESSION: No acute radiographic abnormalities. Electronically Signed: Андрей Kim MD at 17:19 EDT ,
[2021-10-24 16:52] LABS: ALB/GLOB Ratio 1.3 RATIO (0.9-2.4); AST(SGOT) 17 U/L (15-37); Alanine Aminotransfer ALT/SGPT 18 U/L (16-61); Alkaline Phosphatase 41 U/L (45-117); Anion Gap 3 (5-15); BUN 22 mg/dL (7-18); BUN/Creat Ratio 21.2 RATIO (10-20); Calcium,Total 9.8 mg/dL (8.5-10.1); Chloride 97 mmol/L (98-107); Creatinine, Serum 1.04 mg/dL (0.70-1.30); EST Glomerular Filtration Rate 72 mL/min (>60); Est Glom Filt Rate - Afr Amer 87 mL/min (>60); Glucose 144 mg/dL (74-106); Magnesium 1.4 mg/dL (1.6-2.6); Potassium 4.4 mmol/L (3.5-5.1); Sodium Level 130 mmol/L (136-145); Troponin-I HS 4 pg/mL (3.0-78.0)
--- NOTE | 2021-10-24 16:53 | EX.ED.DYSGE1 ---
HPI History of Present Illness Chief Complaint: Neuro S/Sx Informant: patient and spouse/S.O. Narrative Narrative: Patient is an 85-year-old male with history of hypertension, rheumatoid arthritis, hyperlipidemia, GERD and TIA with no residual deficits is presenting with confusion. Patient's left the house at 1 p.m. and seemed normal to the . She notes she did not really speak to him. He called her at work and a speech seemed confused and garbled. The came home and then brought him to the emergency room. The patient is complaining of right leg pain but it has been ongoing and he was actually just started on tramadol for this and had his gabapentin increased from 100 mg to 300 mg a dose. Patient currently denies any complaints. He recognizes that he has been feeling confused. did not notice any facial droop or unilateral weakness. Patient denies any chest pain, shortness of breath or difficulty breathing. This leg pain is chronic. No other complaints at this time. [facility] Medical History Arthritis BPH (benign prostatic hyperplasia) Esophageal stricture Essential (primary) hypertension GERD (gastroesophageal reflux disease) Hyperlipidemia Hypomagnesemia Hyponatremia LVH (left ventricular hypertrophy) Neuropathy Premature ventricular contractions PUD (peptic ulcer disease) Rheumatoid arthritis Type 2 diabetes mellitus without complications Home Medications aspirin 81 mg tablet,delayed release 81 mg PO DAILY 07/20/20 [History Last Taken Unknown] lansoprazole 15 mg capsule,delayed release 15 mg PO DAILY cap 07/03/21 [History Last Taken Unknown] metformin 1,000 mg tablet 1,000 mg PO BID tab 07/03/21 [History Last Taken Unknown] pioglitazone 15 mg PO DAILY 07/24/21 [History Last Taken Unknown] BromSite 1 drp RIGHT EYE QHS 08/31/21 [History Last Taken Unknown] lisinopril 10 mg PO DAILY 09/03/21 [History Last Taken Unknown] quetiapine 50 mg PO TID 30 Days #180 tab 09/10/21 [Rx Last Taken Unknown] Allergy/AdvReac Type Severity Reaction Status Date / Time Proton Pump Inhibitors Allergy Other Verified 08/31/21 03:41 oxycodone AdvReac Other Verified 08/31/21 03:41 Family History Father GI bleed age 42 secondary to ruptured ulcer. Mother Lupus Denied age 83, had history of Lupus. Surgical History History of left heart catheterization (11/2003) History of total hip replacement History of total right knee replacement Hx of cholecystectomy Social History household members: spouse Smoking Status: Unknown if ever smoked alcohol intake: never substance use type: does not use ROS ROS ED Constitutional Constitutional ED: Denies chills or fever(s) Eyes Eyes: Denies blurry vision or change in vision ENT ENT ED: Denies rhinorrhea or sore throat Cardiovascular Cardiovascular: Denies chest pain Respiratory/Chest Respiratory/Chest: Denies cough or dyspnea Gastrointestinal Gastrointestinal: Denies abdominal pain or vomiting Genitourinary Genitourinary ED: Denies dysuria or hematuria Musculoskeletal Musculoskeletal: Reports arthralgias; Denies myalgias Integumentary Denies rash Neurologic Neurologic: Reports other Details: Unsteady gait, chronic. Confusion - new ; Denies headache(s), paresthesias or weakness Psychiatric Psychiatric: Denies anxiety or depression EXAM Physical Exam Const Vital Signs: 10/24/21 16:05 10/24/21 16:11 10/24/21 17:27 Temperature 98.2 F Temperature Source Temporal Pulse Rate 71 72 72 Respiratory Rate 20 H 11 L Blood Pressure 188/95 H 188/95 H 170/102 H Blood Pressure Mean 126 126 124 Pulse Ox 98 97 Oxygen Delivery Method Room Air Room Air Room Air 10/24/21 18:17 10/24/21 19:18 10/24/21 20:05 Temperature Temperature Source Pulse Rate 65 79 67 Respiratory Rate 13 22 H 20 H Blood Pressure 158/131 H 139/109 H 187/118 H Blood Pressure Mean 140 119 Pulse Ox 97 97 Oxygen Delivery Method Room Air Room Air Positive well nourished and well developed General Appearance ED: well developed and NAD HEENT Reports moist mucous membranes Negative for trauma Eyes PERRL and EOMs intact bilaterally Neck supple and no JVD Chest Wall inspection of chest normal and palpation of chest normal Resp normal respiratory effort and clear to auscultation bilaterally Cardio regular rate, regular rhythm and no murmurs GI normal to inspection, nondistended, normoactive bowel sounds and non-tender Palpation: soft Extremity normal to inspection General Extremety ED: Negative for edema or tenderness General Extremity: Negative for edema Neuro oriented x3, CN's II-XII intact bilaterally and no sensory deficits noted Neuro Narrative: NIH=0 Patient is hard of hearing and is slightly slow to respond to questions but does answer all questions appropriately. Seems to get more confused when there is multiple people talking at the same time. Sensorium / Orientation: alert Motor Exam: strength 5/5 throughout Psych mental status grossly normal Mood & Affect: Negative for depressed Skin no rashes or lesions noted and no wounds MDM MDM MDM Narrative Medical decision making narrative: Patient evaluated for an episode of confusion. currently thinks he is at his baseline. Not appear to have any focal neurologic deficit. Did obtain a head CT which did not show any acute intracranial process. Lab work is largely unremarkable. There is no obvious organic cause of encephalopathy. Patient is hypomagnesium is given magnesium replacement in the ER. He is mildly hyponatremic with a sodium of 130. This appears chronic for him. Patient was recently started on tramadol as well as increased on gabapentin. Given his advanced age I suspect this is likely the cause of his confusion. Patient's counseled that they should stop taking the tramadol and call their primary care doctor tomorrow for further recommendations. He is given 1 low dose of fentanyl for his pain however patient is counseled that any type of pain medicine likely increase his risk of confusion. Given that the feels that he is back to normal and patient is anxious to go home they do not want to be admitted for further observation of this confusion. Are given strict return precautions. Patient discharged home in improved and stable condition. Lab Data Attestation: I reviewed the patient's lab results. Labs: Laboratory Results - last 24 hr 10/24/21 10/24/21 10/24/21 16:20 16:20 19:05 WBC 7.8 RBC 4.26 L Hgb 12.9 L Hct 39.4 L MCV 92.5 MCH 30.3 MCHC 32.7 RDW Std Deviation 43.0 RDW Coeff of Brianna 12.7 Plt Count 180 MPV 10.5 Immature Gran % (Auto) 0.400 Neut % (Auto) 74.4 H Lymph % (Auto) 15.7 L [place] % (Auto) 6.6 Eos % (Auto) 2.5 Baso % (Auto) 0.4 Absolute Neuts (auto) 5.8 Absolute Lymphs (auto) 1.22 Nucleated RBC % 0 Sodium 130 L Potassium 4.4 Chloride 97 L Carbon Dioxide 30.0 Anion Gap 3 L BUN 22 H Creatinine 1.04 Estim Creat Clear Calc 57.00 Est GFR (MDRD) Af Amer 87 Est GFR (MDRD) Non-Af 72 BUN/Creatinine Ratio 21.2 H Glucose 144 H Calcium 9.8 Magnesium 1.4 L Total Bilirubin 0.50 AST 17 ALT 18 Alkaline Phosphatase 41 L Troponin I High Sens 4 Total Protein 7.0 Albumin 4.0 Globulin 3.0 Albumin/Globulin Ratio 1.3 Urine Color Yellow Urine Clarity Sl. Cloudy Urine pH 7.0 Ur Specific Sylvester 1.010 Urine Protein Negative Urine Glucose (UA) Normal Urine Ketones Negative Urine Occult Blood Negative Urine Nitrite Negative Urine Bilirubin Negative Urine Urobilinogen Normal Ur Leukocyte Esterase Negative Urine RBC 0 SEEN Urine WBC 0 SEEN Ur Squamous Epith Cells 0 SEEN Urine Bacteria 1+ Urine Mucus 0 SEEN Radiography Chest X-Ray - ED: 1 View, Read by ED Physician, Read by Radiologist and No Acute Disease Diagnostic Testing: Clinical Impression(s) from Imaging Studies Brain CT 10/24/21 16:15 IMPRESSION: No acute intracranial hemorrhage or mass effect. Electronically Signed: Delfino Singer MD (Brooks) at 16:44 EDT , Chest X-Ray 10/24/21 16:35 IMPRESSION: No acute radiographic abnormalities. Electronically Signed: Андрей iKm MD at 17:19 EDT , Rhythm Strip Rhythm Strip: Sinus Rhythm Rate: 67 Ectopy: PVC(s) EKG Initial EKG: Attestation: I personally reviewed and interpreted this EKG as follows: Interpretation: Sinus Rhythm Comments: Normal sinus rhythm rate of 67 Normal axis Normal intervals Normal ST segments Discharge Plan Triage Chief Complaint: Neuro S/Sx ED Provider: Meghan Owen Dx/Rx/DC Orders Clinical Impression: Hypomagnesemia, Altered awareness, transient, Polypharmacy Instructions: ED ADVERSE DRUG REACTION Allergic, ED ALOC Prescriptions: No Action aspirin [Adult Aspirin Regimen] 81 mg tablet,delayed release (DR/EC) 81 mg PO DAILY RF: 0 metformin 1,000 mg tablet 1,000 mg PO BID RF: 0 lansoprazole 15 mg capsule,delayed release(DR/EC) 15 mg PO DAILY RF: 0 pioglitazone 15 mg tablet 15 mg PO DAILY RF: 0 BromSite 0.075 % drops 1 drp RIGHT EYE QHS RF: 0 lisinopril 10 mg tablet 10 mg PO DAILY RF: 0 quetiapine 25 mg Tablet 50 mg PO TID 30 Days Qty: 180 RF: 0 Primary Care Provider: Avery Joseph Referrals: Avery Joseph MD [Primary Care Provider] - Activity Restrictions/Additional Instructions: I suspect her confusion earlier today was from the tramadol mixed with the gabapentin. Please stop taking the tramadol. Follow-up with the medicaid billing clerk and your primary care doctor. Disposition Disposition: Home, Self Care Discharge Date/Time: 10/24/21 20:13
[2021-10-24 17:27] VITALS: BP 170/102; PULSE 72; O2SAT 97
[2021-10-24] MEDS: fentaNYL 100 MCG/2 ML Ampul 25 MCG IV (18:10)
[2021-10-24 18:17] VITALS: BP 158/131; PULSE 65; RESP 13; O2SAT 97
[2021-10-24 19:10] LABS: Mucous, Urine 0 SEEN /hpf (<or=2+); Red Blood Cells-Urine 0 SEEN /hpf (0-5); Squamous Epithelial Cells - UA 0 SEEN /hpf (0-5); White Blood Cells 0 SEEN /hpf (0-5)
[2021-10-24 19:18] VITALS: BP 139/109; PULSE 79; RESP 22; O2SAT 97
[2021-10-24 19:35] LABS: Color, Urine Yellow (Yellow); Glucose, Dipstick Normal (Normal); Ketone-Dipstick Negative (Negative); Leukocyte Esterase-Dipstick Negative /ul (Negative); Nitrite-Dipstick Negative (Negative); Occult Blood-Urine Negative /ul (Negative); Protein-Dipstick Negative (Negative); Urine Bilirubin Dipstick Negative (Negative); Urine Clarity Sl. Cloudy (Clear); Urine Urobilinogen Normal (Normal)
[2021-10-24 19:47] LABS: Bacteria 1+ /hpf (None Seen)
[2021-10-24 20:05] VITALS: BP 187/118; PULSE 67; RESP 20
[2021-10-25 07:26] LABS: Bedside Glucose 157 mg/dL (74-106)
== END 2021-10-24 20:13 | disposition home or self-care (01) ==
PROVIDERS: Emergency Provider Emergency Medicine; PCP Family Medicine; Visit Provider Emergency Medicine
DX: R41.0 Disorientation, unspecified (principal); M06.9 Rheumatoid arthritis, unspecified; E11.40 Type 2 diabetes mellitus with diabetic neuropathy, unspecified; T40.425A Adverse effect of tramadol, initial encounter; T42.6X5A Adverse effect of other antiepileptic and sedative-hypnotic drugs, initial encounter; E83.42 Hypomagnesemia; E78.5 Hyperlipidemia, unspecified; I10 Essential (primary) hypertension; Z79.82 Long term (current) use of aspirin; Z79.84 Long term (current) use of oral hypoglycemic drugs; Z79.899 Other long term (current) drug therapy; Z86.73 Personal history of transient ischemic attack (TIA), and cerebral infarction without residual deficits
CPT/HCPCS: 70450; 71045; 80053; 81001; 82962; 83735; 84484; 85025; 93005; 96365; 96366; 96375; 99284; J7050; A4216

== ENCOUNTER 2021-11-02 12:46 | Outpatient (CLI) | payer MEDICARE, SELFPAY ==
--- NOTE | 2021-11-02 12:49 | RAD_ITS ---
STUDY: XR Hip Unilateral with Pelvis when performed; 2-3 Views 11/02/2021 12:57 PM REASON FOR EXAM: Male, 85 years old. PAIN Post-Op Total Hip Replacement TECHNIQUE: XR Hip Unilateral with Pelvis when performed; 2-3 Views COMPARISON: None FINDINGS: There is a non-specific bowel gas pattern. Normal visualized soft tissue structures. There are degenerative changes of the lumbar spine. Normal bilateral iliac wings, sacroiliac joints and visualized sacrum. Normal visualized bilateral superior and inferior pubic rami. Normal pubic symphysis. Normal ischial tuberosities. Total right hip arthroplasty. There is a prosthetic right acetabulum. Normal right hip joint. Normal visualized left femoral head. Normal left acetabulum. Normal left hip joint. RAD/HIP, UNI W/ Pelvis 2-3 Views IMPRESSION: No acute findings. Electronically Signed: Álvaro Hunter MD at 15:43 EDT ,
== END 2021-11-02 23:59 | disposition home or self-care (01) ==
LOC: MTLAB 12:47 → MTRAD 12:48
PROVIDERS: PCP Family Medicine; Referring Provider Internal Medicine Rheumatology; Visit Provider Internal Medicine Rheumatology
DX: M06.4 Inflammatory polyarthropathy (principal); E11.9 Type 2 diabetes mellitus without complications; R76.8 Other specified abnormal immunological findings in serum; M18.0 Bilateral primary osteoarthritis of first carpometacarpal joints; M17.0 Bilateral primary osteoarthritis of knee; I10 Essential (primary) hypertension; K21.9 Gastro-esophageal reflux disease without esophagitis; K22.2 Esophageal obstruction; K57.90 Diverticulosis of intestine, part unspecified, without perforation or abscess without bleeding; N40.0 Benign prostatic hyperplasia without lower urinary tract symptoms; Z79.899 Other long term (current) drug therapy
CPT/HCPCS: 73502

== ENCOUNTER → 2022-01-24 | Outpatient (CLI) | payer MEDICARE, SELFPAY ==
--- NOTE | 2022-01-24 14:52 | RAD_ITS ---
INDICATION: KNEE PAIN EXAMINATION/TECHNIQUE: X-RAY - LEFT XR Knee Complete 4 Views or More 4 VIEWS COMPARISON: None. FINDINGS: SOFT TISSUES: No soft tissue swelling or joint effusion. Peripheral atherosclerosis. 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 No fracture or focal osseous lesion. RAD/Knee 4 or More Views IMPRESSION: Tricompartmental osteoarthritis with chondrocalcinosis. Peripheral atherosclerosis. Electronically Signed: Usman De La Paz DO at 21:14 EDT ,
== END | disposition home or self-care (01) ==
LOC: MTRAD 14:52
PROVIDERS: PCP Family Medicine; Referring Provider Anesthesiology Pain Medicine; Visit Provider Anesthesiology Pain Medicine
DX: M17.12 Unilateral primary osteoarthritis, left knee (principal); M11.262 Other chondrocalcinosis, left knee
CPT/HCPCS: 73564

== ENCOUNTER 2022-03-07 15:00 | Outpatient (RCR) | payer MEDICARE, SELFPAY ==
--- NOTE | 2022-01-31 16:52 | HP.PTEVAL_ITS ---
Patient's Visit Information DARWIN GRUBER is a 86 year old M referred to Physical Therapy by Dr. Avery Hutchins MD with a diagnosis of Usteady gait. Date of Evaluation: 01/31/22 Physical Therapist: Álvaro Botello, PT, ATC - Visit Plan Frequency: 2-3x /Week Duration: 4-6 Weeks Plan: B LE strengthening, balance and proprio, stair negotiation, gait training, core stab ex's, nustep, and HEP - Subjective Pt reports he has noticed decreased balance over the past several years. Pt notes it became worse over the past year after having a stroke. Pt reports he feels like his hand-eye coordination have also become poor as he has noticed he tends to knock over a lot of cups while at home. Pt reports his knees have been sore and weak for quite a while as well. Pt reports he has not had any recent falls, but notes he tends to lose his balance quite a bit and stumbles. Pt reports on his good days, he tries to walk without his walker and does pretty well. However, on his bad days he has to use his walker. Pt reports his feet are partially numb secondary to having peripheral neuropathy, but denies any other tingling or numbness in LE's. Pt has stairs into his house that he has to negotiate one stair at a time. Pt reports he has a hard time sleeping at night, but denies it is due to pain. Pt reports B knee pain when he walks which limits how far he can walk. - Pain B knee pain Pain Intensity (Out of 10): 1 - Objective Neuro: B LE sensation is WNL to light touch. B patellar reflex= 2/3. MMT: B LEs are grossly 4/5 throughout. ROM: B LE's are WFL when compared bilaterally. Gait: Pt is able to ambulate 170 feet until needing a rest secondary to fatigue. Requires constant VCing for stride length and standing upright - Balance/Special Test Scores Lower Extremity Functional Score: 0 - Goals Goal 1:: Increase B LE strength x 1 grade to aid with stair negotiation Goal Time Frame: 4-6 Weeks Goal 2:: Pt will be able to ambulate 600feet with LRD to aid with community ambulation Goal Time Frame: 4-6 Weeks Goal 3:: Pt will ambulate with a more normalized gait pattern to aid with preventing future falls Goal Time Frame: 4-6 Weeks Goal 4:: I with HEP Goal Time Frame: 4-6 Weeks - Rehabilitation Potential Physical Therapy Diagnosis: Pt has unsteady gait, B LE weakness, and difficulty with prolonged ambulation secondary to debilitation Rehabilitation Potential: Good - Anticipated Interventions Patient/Client Instruction: Educate patient on: Condition, Plan of Care For the Purpose of:: To improve self management Therapeutic Exercise to Include: Strength training, Endurance training, Balance training, Gait and locomotor training, Dynamic Lumbar Stabilization For the Purpose of:: To improve muscle performance and motor function, To increase tolerance to activity/condition/position, To improve ability of physical actions for home/community/work/leisure Thank you for the opportunity to evaluate your patient. For Medicare and Medicare HMO plans, please review the plan of care and approve it. It will need to be FAXED BACK to us at [phone] for Medicare purposes. For Medicare only, by signing this I certify the plan of care. Please let me know if there are questions or concerns regarding this plan of care. Physician Signature: Date:
--- NOTE | 2022-03-07 16:09 | HP.PTDCSUM ---
It has been my pleasure to treat DARWIN GRUBER referred by Dr. Avery Hutchins MD, with the diagnosis of Usteady gait for a total of 12 visit(s). Discharge Date: Please see the following information for a summary of their discharge status. Subjective: My pain in the R hip varies. But I am doing better and am ready to marie nue with ex's I B knee pain Pain Intensity (Out of 10): 3 % Improvement: 40 Objective/Function: R LE pain ranges from 3-7/10. Pt is able to ambulate 300 feet until his knees become sore and he has to rest. Pt still requires VC'ing for larger strides. Pt is I with HEP Goal 1:: Increase B LE strength x 1 grade to aid with stair negotiation Goal Progress: Goal Met Goal 2:: Pt will be able to ambulate 600feet with LRD to aid with community ambulation Goal Progress: Progressing Goal 3:: Pt will ambulate with a more normalized gait pattern to aid with preventing future falls Goal Progress: Progressing Goal 4:: I with HEP Goal Progress: Goal Met Plan: Discharge to HEP If there are questions or concerns regarding this patient's physical therapy, please feel free to call me at [phone]. Thank you for the referral of this patient. Sincerely, Álvaro Botello, PT, ATC Balance/Gait/Functional tests - Balance/Special Test Scores Lower Extremity Functional Score: 0
== END 2022-03-07 19:00 | disposition home or self-care (01) ==
LOC: PT 15:00
PROVIDERS: PCP Family Medicine; Referring Provider Anesthesiology Pain Medicine; Visit Provider Anesthesiology Pain Medicine
DX: M48.07 Spinal stenosis, lumbosacral region (principal)
CPT/HCPCS: 97110; 97161; 97164

== ENCOUNTER → 2023-10-17 | Outpatient (CLI) | payer MEDICARE, SELFPAY | END | disposition home or self-care (01) | LOC: PSN 09:05 | PROVIDERS: PCP Family Medicine; Referring Provider Internal Medicine Cardiovascular Disease; Visit Provider Internal Medicine Cardiovascular Disease | DX: I48.92 Unspecified atrial flutter (principal) | CPT/HCPCS: 93225; 93226 ==

== ENCOUNTER 2023-11-13 19:45 | Inpatient (IN) | payer MEDICARE, SELFPAY ==
[2023-11-13] VITALS (10 sets, daily range): BP systolic 138–172; BP diastolic 80–102; PULSE 70–92; RESP 12–24; TEMP 36.4–37; O2SAT 92–97; BMI 28.3; BMI 27.5
--- NOTE | 2023-11-13 19:52 | EKG12_ITS ---
Test Reason : Blood Pressure : / mmHG Vent. Rate : 089 BPM Atrial Rate : 000 BPM P-R Int : 000 ms QRS Dur : 140 ms QT Int : 404 ms P-R-T Axes : 000 -78 073 degrees QTc Int : 491 ms Atrial fibrillation Left axis deviation Non-specific intra-ventricular conduction block Inferior infarct , age undetermined Anterolateral infarct , age undetermined Abnormal ECG No previous ECGs available Confirmed by SHAE ESCOBAR, BRENT ([id number]), book or script editor AISSATOU CATALAN ([id number]) on 11/17/2023 9:58:35 AM Referred By: Jose Raul Pope Confirmed By:BRENT KAUFMAN MD
--- NOTE | 2023-11-13 19:54 | ED.VIS.CHEST ---
HPI History of Present Illness Chief Complaint: Chest Pain Informant: patient Onset/Context/Timing Onset: Hours Activity at onset: sudden Timing: Continuous Quality: Positive for Heaviness, Pain and Pressure Location: Substernal and Left Chest Current Severity: Moderate Maximum Severity: Moderate Worsened By: Nothing Relieved By: Nothing Associated Symptoms: Positive for Nausea, Vomiting and Dyspnea Narrative Narrative: 87-year-old male history of prior stroke and diabetes. No cardiac history. Around 5:00 tonight he got midsternal and left-sided chest pain radiating to both arms. He did have an episode of nausea and vomiting. Squad was called they brought him and on the way and they gave him aspirin he did have 1 episode of nausea and vomiting. He denies any recent exertional chest pain or exertional dyspnea. Prior Similar Symptoms: No Recent Illness/Hospitalization: No CVD Risk Factors: Positive for Diabetes PE Risk Factors: Negative for Recent Travel/Surgery, Recent Immobilization, Prior DVT or PE, Cancer or OCP + Smoking + >/=35 TAD Risk Factors: Negative for Marfan's Syndrome PFSH [facility] Medical History Arthritis BPH (benign prostatic hyperplasia) Esophageal stricture Essential (primary) hypertension GERD (gastroesophageal reflux disease) Hyperlipidemia Hypomagnesemia Hyponatremia LVH (left ventricular hypertrophy) Neuropathy Premature ventricular contractions PUD (peptic ulcer disease) Rheumatoid arthritis Type 2 diabetes mellitus without complications Home Medications lansoprazole 15 mg capsule,delayed release 15 mg PO DAILY stomach acid 07/03/21 [History Last Taken Unknown] metformin 1,000 mg tablet 1,000 mg PO BID diabetes 07/03/21 [History Last Taken Unknown] donepezil 10 mg tablet 10 mg PO QDAY 10/07/23 [History Last Taken Unknown] gabapentin 300 mg capsule 300 mg PO TID 10/07/23 [History Last Taken Unknown] glimepiride 2 mg tablet 2 mg PO QDAY 10/07/23 [History Last Taken Unknown] lisinopril 10 mg tablet 10 mg PO DAILY BP #90 tabs 10/07/23 [Rx Last Taken Unknown] mirtazapine 15 mg tablet 15 mg PO QHS 10/07/23 [History Last Taken Unknown] tumeric PO DAILY 10/07/23 [History Last Taken Unknown] Allergy/AdvReac Type Severity Reaction Status Date / Time Proton Pump Inhibitors Allergy Other Verified 11/13/23 20:09 oxycodone AdvReac Other Verified 11/13/23 20:09 Family History Father GI bleed age 42 secondary to ruptured ulcer. Mother Lupus Denied age 83, had history of Lupus. 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 Chest pain about 3 hours ago. Review of Systems ROS Unobtainable: Denies due to encephalopathy Constitutional Constitutional ED: Denies chills or fever(s) Eyes Eyes: Reports none ENT ENT ED: Denies ear pain Cardiovascular Cardiovascular: Reports as per HPI and chest pain; Denies palpitations or racing heartbeat Respiratory/Chest Respiratory/Chest: Reports dyspnea; Denies cough Gastrointestinal Gastrointestinal: Denies abdominal pain Genitourinary Genitourinary ED: Denies dysuria Musculoskeletal Musculoskeletal: Denies arthralgias Integumentary Denies abscess Neurologic Neurologic: Denies headache(s) Psychiatric Psychiatric: Denies anxiety Endocrine Endocrinology: Denies cold intolerance Hematologic/Lymphatic Hematologic/Lymphatic: Denies easy bleeding Allergic/Immunologic Allergic/Immunologic ED: Denies mouth swelling EXAM Physical Exam Narrative Exam Narrative: 87-year-old male vital signs stable afebrile. Pulse ox 95% on room air no hypoxia. H EENT exam unremarkable. Mytrex membranes. No facial droop. Normal speech. Neck nontender. Lungs clear to auscultation bilaterally. Heart regular rate and rhythm rate about 70 no murmur. Chest wall and ribs nontender. Abdomen soft nontender normal bowel sounds no peritoneal signs. Moving all 4 extremities. Calves are nontender no edema no cords. Dorsi plantarflexion intact. 5 of 5 food service coordinator strength. Radial pulses intact bilaterally. Neurologically is awake and alert. Answering questions following commands. Const Vital Signs: 11/13/23 19:46 11/13/23 19:51 11/13/23 19:51 Temperature 98.6 F Temperature Source Oral Pulse Rate 70 Respiratory Rate 24 H Respiratory Effort Normal Blood Pressure 151/96 H 138/80 H Blood Pressure Mean 114 Pulse Ox 95 Oxygen Delivery Method Room Air Oxygen Flow Rate (L/min) 11/13/23 20:03 11/13/23 20:08 Temperature 97.6 F L Temperature Source Pulse Rate 92 Respiratory Rate 23 H Respiratory Effort Blood Pressure 147/83 H Blood Pressure Mean 104 Pulse Ox 96 Oxygen Delivery Method Nasal Cannula Oxygen Flow Rate (L/min) 2 Positive well nourished and well developed; Negative for cachectic, contractures or unkempt General Appearance ED: well developed; Negative for unkempt, cachectic, contractures, NAD or pallor Nutritional Appearance: Negative for cachectic HEENT Reports moist mucous membranes; Denies dry mucous membranes normocephalic and atraumatic; Negative for trauma or tenderness Mouth ED: No dry mucous membranes Mouth: No dry mucous membranes Eyes PERRL and EOMs intact bilaterally General Eye ED: Negative for pale conjunctiva or scleral icterus Neck no lymphadenopathy, supple and no JVD General: Negative for tenderness Chest Wall inspection of chest normal and palpation of chest normal Chest: Negative for tenderness Resp normal respiratory effort and clear to auscultation bilaterally Effort and Inspection: Negative for respiratory distress Auscultation: Negative for rales, rhonchi, wheezes or diminished lung sounds Cardio regular rate, regular rhythm, S1 normal heart sound, S2 normal heart sound and no murmurs Rate: Negative for bradycardia or tachycardic Peripheral Pulses: pulses 2+ throughout GI normal to inspection, nondistended, normoactive bowel sounds, soft to palpation, non-tender, non-distended and no masses; Negative for hepatosplenomegaly Back/Spine no CVA tenderness and no thoracic nor lumbar tenderness General Back: Negative for CVA tenderness Cervical Spine: Negative for cervical spine tenderness Extremity normal to inspection General Extremety ED: Negative for edema, pulses abnormal or tenderness General Extremity: Negative for edema or pulses abnormal Neuro oriented x3 and CN's II-XII intact bilaterally Sensorium / Orientation: awake, alert, oriented to person, oriented to place and oriented to time; Negative for confused, lethargic or stuporous Motor Exam: strength 5/5 throughout Psych mental status grossly normal Appearance: Negative for unkempt Attitude: No agitated Mood & Affect: Negative for depressed, anxious or tearful Skin no rashes or lesions noted and no wounds General Skin Exam: Negative for jaundice or pallor Rashes: No rashes noted Trauma: Negative for abrasion Heart Score History: Highly Suspicious ECG: Significant ST-Depression Age: >/= 65 years Risk Factors: 1 or 2 Risk Factors Score: 7 MDM MDM MDM Narrative Medical decision making narrative: 87-year-old male with 3-hour history of left-sided chest pain radiating to both arms. EKG [place] an acute anterior PR with ST elevation in leads V1, V2, V3, V4, V5 and V6. We did have a prehospital EKG that looked like an anterior PR and a STEMI team was called about 10 minutes prior to arrival. I have already spoken to the hospice clinical marketer who is on his way. Assistant Office Manager has been called. Patient received aspirin per squad. He received p.o. Brilinta and heparin bolus here. We are awaiting the Assistant Office Manager team. Currently is awake alert and stable with stable vital signs. History & Record Review Discussion w/independent historian: Patient Additional record(s) reviewed:: Prior inpatient record, Prior outpatient record, Prior ED visit and Prior labs Lab Data Attestation: I reviewed the patient's lab results. Lab results narrative: CBC shows a white count of 15.8. H&H of 13 and 42. Platelets 209. PT/INR and PTT normal. 14, 1 and 27. PT INR and PTT were 14, 1 and 27. Chemistries show a gap 11. BUN 19 creatinine 1.32. Glucose 225. Initial troponin is elevated at 158. Labs: Laboratory Results - last 24 hr 11/13/23 19:49 WBC 15.8 H RBC 4.97 Hgb 13.0 Hct 42.8 MCV 86.1 MCH 26.2 L MCHC 30.4 L RDW Std Deviation 40.4 RDW Coeff of Brianna 13.2 Plt Count 209 MPV 10.2 Immature Gran % (Auto) 0.400 Neut % (Auto) 67.5 Lymph % (Auto) 21.9 [place] % (Auto) 7.6 Eos % (Auto) 2.3 Baso % (Auto) 0.3 Absolute Neuts (auto) 10.7 H Absolute Lymphs (auto) 3.45 Nucleated RBC % 0 PT 14.8 INR 1.2 APTT 27.3 Sodium 137 Potassium 3.9 Chloride 102 Carbon Dioxide 24.0 Anion Gap 11 BUN 19 H Creatinine 1.32 H Estim Creat Clear Calc 47.09 Est GFR (MDRD) Af Amer 66 Est GFR (MDRD) Non-Af 54 L BUN/Creatinine Ratio 14.4 Glucose 225 H Calcium 9.5 Magnesium 1.3 L Troponin I High Sens 158 H* Rhythm Strip Rhythm Strip: Sinus Rhythm Rate: 70 Ectopy: None EKG Initial EKG: Attestation: I personally reviewed and interpreted this EKG as follows: Interpretation: Sinus Rhythm and S-T Elevation Comments: Sinus rhythm rate of 70. Right bundle branch block. ST elevation in the anterior leads V1 through V6 with ST elevation consistent with an anterior PR. Critical Care Time Critical Care Time: Yes Critical care time (excluding procedures): 30-74 minutes, Including time spent:, Discussing w/Patient &/or Family/Freight Flow Sales Leader, Discussing w/Consultants, Arranging Admission or Transfer, Performing Direct Patient Care at Bedside and - (32 min.) Discharge Plan Dx/Rx/DC Orders Clinical Impression: Acute myocardial infarction, History of stroke, History of diabetes mellitus, Chest pain Disposition Disposition: Acute Care [facility] Discharge Date/Time: 11/13/23 20:18
[2023-11-13 19:57] LABS: Absolute Lymphocyte Count 3.45 X10^3/uL (0.83-4.51); Absolute Neutrophil Count 10.7 X10^3/uL (2.0-7.7); Basophil# 0.05 X10^3/uL; Basophil% 0.3 % (0-1); Eosinophil# 0.36 X10^3/uL; Eosinophils% 2.3 % (0-5); Hematocrit 42.8 % (40-54); Lymphocyte # 3.45 X10^3/ul (0.83-4.51); Lymphocyte % 21.9 % (19-41); Mean Corp Hgb Conc 30.4 g/dL (32-36); Mean Corpuscular Hgb 26.2 pg (27.0-32.0); Mean Corpuscular Volume 86.1 fL (80-94); Mean Platelet Vol. 10.2 fl (6.2-12.0); Monocyte% 7.6 % (0-10); NRBC Flagged by Analyzer 0 % (0-5); Neutrophil # 10.66 X10^3/uL (2.7-7.7); Neutrophil % 67.5 % (47-70); Platelet Count 209 K/mm3 (150-450); RBC Distribution Width CV 13.2 % (11.6-14.6); RBC Distribution Width SD 40.4 fl (35.1-43.9); Red Blood Count 4.97 M/mm3 (4.6-6.2); White Blood Count 15.8 K/mm3 (4.4-11.0)
[2023-11-13] MEDS: TICAGRELOR 90 MG TABLET 180 MG PO (20:01)
[2023-11-13] MEDS: Heparin Injection (Vial) 5,000 UNIT/ML VIAL 5000 UNIT IV (20:01)
[2023-11-13] MEDS: Ondansetron 4 MG/2 ML Vial IV (20:03)
[2023-11-13 20:06] LABS: International Normalized Ratio 1.2; Prothrombin Time (Protime)PT. 14.8 SECONDS (11.7-14.9)
[2023-11-13 20:07] LABS: Partial Thromboplast Time 27.3 Seconds (24.1-36.2)
[2023-11-13 20:27] LABS: Anion Gap 11 (5-15); BUN 19 mg/dL (7-18); BUN/Creat Ratio 14.4 RATIO (10-20); Calcium,Total 9.5 mg/dL (8.5-10.1); Chloride 102 mmol/L (98-107); Creatinine, Serum 1.32 mg/dL (0.70-1.30); EST Glomerular Filtration Rate 54 mL/min (>60); Est Glom Filt Rate - Afr Amer 66 mL/min (>60); Estimated Creatinine Clearance 47.09 ml/min; Glucose 225 mg/dL (74-106); Potassium 3.9 mmol/L (3.5-5.1); Sodium Level 137 mmol/L (136-145); Troponin-I HS (w/2H Reflex) 158 pg/mL (3.0-78.0)
[2023-11-13 21:02] LABS: Magnesium 1.3 mg/dL (1.6-2.6)
--- NOTE | 2023-11-13 21:40 | CON.PCM.CA_ITS ---
Assessment & Plan Assessment/Plan (1) Acute myocardial infarction: QUALIFIERS: Myocardial infarction type: ST elevation myocardial infarction Involved coronary artery: LAD coronary artery Qualified Code(s): I21.02 - ST elevation (STEMI) myocardial infarction involving left anterior descending coronary artery PLAN: Will keep the patient on aspirin, Plavix, beta-nolberto, statin. Will check a 2D echo. Status post stents to the mid LAD. Patient is being admitted to the CCU for further management. (2) Paroxysmal atrial flutter: PLAN: Patient appears to be in atrial flutter. Will add low-dose Eliquis. He will be on triple therapy for 1 month. HPI Consult Data Date of Consult: 11/13/23 HPI Narrative Reason for Consultation: Anterior STEMI HPI Narrative: DARWIN GRUBER, is a 87 M who presents with chest pain and bilateral arm pain. Patient was found to have anterior ST elevation CT and a STEMI alert was called. Patient was brought emergently to the Electrical Power Station Technician and was found to have 100% occlusion in the mid LAD that was treated with drug-eluting stents. Patient is doing well at the end of the procedure. Review of systems: All systems reviewed. All else is negative except that in HPI. [facility] Medical History Arthritis BPH (benign prostatic hyperplasia) Esophageal stricture Essential (primary) hypertension GERD (gastroesophageal reflux disease) Hyperlipidemia Hypomagnesemia Hyponatremia LVH (left ventricular hypertrophy) Neuropathy Premature ventricular contractions PUD (peptic ulcer disease) Rheumatoid arthritis Type 2 diabetes mellitus without complications Home Medications lansoprazole 15 mg capsule,delayed release 15 mg PO DAILY stomach acid 07/03/21 [History Last Taken Unknown] metformin 1,000 mg tablet 1,000 mg PO BID diabetes 07/03/21 [History Last Taken Unknown] donepezil 10 mg tablet 10 mg PO QDAY 10/07/23 [History Last Taken Unknown] gabapentin 300 mg capsule 300 mg PO TID 10/07/23 [History Last Taken Unknown] glimepiride 2 mg tablet 2 mg PO QDAY 10/07/23 [History Last Taken Unknown] lisinopril 10 mg tablet 10 mg PO DAILY BP #90 tabs 10/07/23 [Rx Last Taken Unknown] mirtazapine 15 mg tablet 15 mg PO QHS 10/07/23 [History Last Taken Unknown] tumeric PO DAILY 10/07/23 [History Last Taken Unknown] Allergy/AdvReac Type Severity Reaction Status Date / Time Proton Pump Inhibitors Allergy Other Verified 11/13/23 20:09 oxycodone AdvReac Other Verified 11/13/23 20:09 Family History Father GI bleed age 42 secondary to ruptured ulcer. Mother Lupus Denied age 83, had history of Lupus. Surgical History History of left heart catheterization (11/2003) History of total hip replacement History of total right knee replacement Hx of cholecystectomy Social History household members: spouse Smoking Status: Never smoker alcohol intake: never substance use type: does not use Physical Exam Const alert and oriented x3 HEENT normocephalic Eyes no scleral icterus Cardio Cardio Narrative: Irregular rhythm Skin no rashes or lesions noted Psych mental status grossly normal Risk Stratification Risk Stratification Applicable: No Charges/Coding Visit Charges Inpatient E&M: 80571 Init Hosp L2 Objective Data Vital Signs: Vital Signs Temp Pulse Resp BP Pulse Ox O2 Del Method O2 Flow Rate 97.6 F L 92 23 H 147/83 H 96 Nasal Cannula 2 11/13/23 20:08 11/13/23 20:08 11/13/23 20:08 11/13/23 20:08 11/13/23 20:08 11/13/23 20:03 11/13/23 20:03 Oxygen Flow Rate (L/min) 2 Oxygen Delivery Method Nasal Cannula Weight: 208 lb 12.444 oz Body Mass Index (BMI) 28.3 Lab / Micro Data 11/13/23 19:49 11/13/23 19:49 Labs: Laboratory Results - last 24 hr 11/13/23 19:49: WBC 15.8 H, RBC 4.97, Hgb 13.0, Hct 42.8, MCV 86.1, MCH 26.2 L, MCHC 30.4 L, RDW Std Deviation 40.4, RDW Coeff of Brianna 13.2, Plt Count 209, MPV 10.2, Immature Gran % (Auto) 0.400, Neut % (Auto) 67.5, Lymph % (Auto) 21.9, [place] % (Auto) 7.6, Eos % (Auto) 2.3, Baso % (Auto) 0.3, Absolute Neuts (auto) 10.7 H, Absolute Lymphs (auto) 3.45, Nucleated RBC % 0, PT 14.8, INR 1.2, APTT 27.3, Sodium 137, Potassium 3.9, Chloride 102, Carbon Dioxide 24.0, Anion Gap 11, BUN 19 H, Creatinine 1.32 H, Estim Creat Clear Calc 47.09, Est GFR (MDRD) Af Amer 66, Est GFR (MDRD) Non-Af 54 L, BUN/Creatinine Ratio 14.4, Glucose 225 H, Calcium 9.5, Magnesium 1.3 L, Troponin I High Sens 158 H* Rhythm Strip Rhythm Strip: Sinus Rhythm Rate: 70 Ectopy: None Cardiology Labs/Tests 11/13/23 19:49: WBC 15.8 H, RBC 4.97, Hgb 13.0, Hct 42.8, MCV 86.1, MCH 26.2 L, MCHC 30.4 L, Plt Count 209, MPV 10.2, Immature Gran % (Auto) 0.400, Neut % (Auto) 67.5, Lymph % (Auto) 21.9, [place] % (Auto) 7.6, Eos % (Auto) 2.3, Baso % (Auto) 0.3, Absolute Neuts (auto) 10.7 H, Nucleated RBC % 0, PT 14.8, INR 1.2, APTT 27.3, Sodium 137, Potassium 3.9, Chloride 102, Carbon Dioxide 24.0, Anion Gap 11, BUN 19 H, Creatinine 1.32 H, Est GFR (MDRD) Af Amer 66, Est GFR (MDRD) Non-Af 54 L, BUN/Creatinine Ratio 14.4, Glucose 225 H, Calcium 9.5, Magnesium 1.3 L Rhythm: EKG: ECHO: Stress Test: Cardiac Cath: PCI: CT Surgery: Holter monitor: EPS: PPM: CXR: Chest CT Scan:
--- NOTE | 2023-11-13 21:46 | HP.PCM.HOS_ITS ---
HPI - General General Date of Admission: 11/13/23 Date of Service: 11/13/23 Chief Complaint: Chest pain HPI Narrative DARWIN GRUBER, is a 87 M who presented to [facility] ED on 11/13/2023 as a STEMI alert. I saw the patient at the bedside in the ICU after he came back from [facility]. At that time, patient was sitting up comfortably in bed, conversing normally, in no acute distress. He was breathing comfortably on room air. He denied any chest pain or shortness of breath at that time. Denied any other acute concerns. Patient states that around 5 PM he developed midsternal and left-sided chest pain that radiated to both arms. Also had an episode of nausea and vomiting with this. He sees Dr. Meyer with cardiology for hypertension, paroxysmal A-fib and history of near syncopal episodes. No other cardiac history. Otherwise has a history of stroke and diabetes. Lives at home with his and when his pain and arm heaviness would not subside, they called EMS. Was found EKG to have ST elevations in the anterior leads V1 through V6 consistent with an anterior ID. Went directly to the [facility] on arrival to the hospital. Spoke with Dr. Pope with cardiology over the phone after the cath was done. Was found to have significant LAD blockage and had 3 stents placed to the mid LAD. LV gram was not done but vitals remained stable throughout and there was low concern for significantly reduced EF. [facility] Medical History Arthritis BPH (benign prostatic hyperplasia) Esophageal stricture Essential (primary) hypertension GERD (gastroesophageal reflux disease) Hyperlipidemia Hypomagnesemia Hyponatremia LVH (left ventricular hypertrophy) Neuropathy Premature ventricular contractions PUD (peptic ulcer disease) Rheumatoid arthritis Type 2 diabetes mellitus without complications Home Medications lansoprazole 15 mg capsule,delayed release 15 mg PO DAILY stomach acid 07/03/21 [History Last Taken Unknown] metformin 1,000 mg tablet 1,000 mg PO BID diabetes 07/03/21 [History Last Taken Unknown] donepezil 10 mg tablet 10 mg PO QDAY 10/07/23 [History Last Taken Unknown] gabapentin 300 mg capsule 300 mg PO TID 10/07/23 [History Last Taken Unknown] glimepiride 2 mg tablet 2 mg PO QDAY 10/07/23 [History Last Taken Unknown] lisinopril 10 mg tablet 10 mg PO DAILY BP #90 tabs 10/07/23 [Rx Last Taken Unknown] mirtazapine 15 mg tablet 15 mg PO QHS 10/07/23 [History Last Taken Unknown] tumeric PO DAILY 10/07/23 [History Last Taken Unknown] Allergy/AdvReac Type Severity Reaction Status Date / Time Proton Pump Inhibitors Allergy Other Verified 11/13/23 20:09 oxycodone AdvReac Other Verified 11/13/23 20:09 Family History Father GI bleed age 42 secondary to ruptured ulcer. Mother Lupus Denied age 83, had history of Lupus. Surgical History History of left heart catheterization (11/2003) History of total hip replacement History of total right knee replacement Hx of cholecystectomy Social History household members: spouse Smoking Status: Never smoker alcohol intake: never substance use type: does not use ROS Constitutional Constitutional: Denies chills, fatigue, fever(s) or weakness Eyes Eyes: Denies change in vision Cardiovascular Cardiovascular: Denies chest pain, edema, orthopnea or palpitations Respiratory/Chest Respiratory/Chest: Denies cough or shortness of breath at rest Gastrointestinal Gastrointestinal: Denies abdominal pain, constipation, diarrhea, nausea or vomiting Neurologic Neurologic: Denies dizziness, focal weakness or headache(s) Vital Signs Vital Signs Vital Signs: 11/13/23 19:46 11/13/23 19:51 11/13/23 19:51 Temperature 98.6 F Temperature Source Oral Pulse Rate 70 Respiratory Rate 24 H Respiratory Effort Normal Blood Pressure 151/96 H 138/80 H Blood Pressure Mean 114 Pulse Ox 95 Oxygen Delivery Method Room Air Oxygen Flow Rate (L/min) 11/13/23 20:03 11/13/23 20:08 Temperature 97.6 F L Temperature Source Pulse Rate 92 Respiratory Rate 23 H Respiratory Effort Blood Pressure 147/83 H Blood Pressure Mean 104 Pulse Ox 96 Oxygen Delivery Method Nasal Cannula Oxygen Flow Rate (L/min) 2 Weight Weight: 94.7 kg Body Mass Index (BMI) 28.3 Physical Exam Const alert, oriented x3, no apparent distress and average body habitus Constitutional Narrative: Pleasant elderly male, sitting up comfortably in bed, conversing normally, in no acute distress. General Appearance: cooperative and comfortable HEENT normocephalic, head/scalp atraumatic, hearing grossly normal bilaterally and nasal mucous membranes and turbinates normal Eyes PERRL, EOMs intact bilaterally and conjunctivae normal Neck full ROM Chest inspection of chest normal Resp normal respiratory effort, normal air movement, no use of accessory muscles and clear to auscultation bilaterally Cardio no murmurs and peripheral pulses 2+ throughout Cardio Narrative: A-fib, rate controlled. GI normal to inspection, nondistended, normoactive bowel sounds, soft to palpation, non-tender and non-distended Back/Spine normal ROM Extremity normal to inspection, full ROM and no pedal edema Skin no rashes or lesions noted Neuro moves all extremities and no focal motor deficits Speech: speech normal Psych mental status grossly normal Results Lab / Micro Data 11/13/23 19:49 11/13/23 19:49 Labs: Laboratory Results - last 24 hr 11/13/23 19:49: WBC 15.8 H, RBC 4.97, Hgb 13.0, Hct 42.8, MCV 86.1, MCH 26.2 L, MCHC 30.4 L, RDW Std Deviation 40.4, RDW Coeff of Brianna 13.2, Plt Count 209, MPV 10.2, Immature Gran % (Auto) 0.400, Neut % (Auto) 67.5, Lymph % (Auto) 21.9, [place] % (Auto) 7.6, Eos % (Auto) 2.3, Baso % (Auto) 0.3, Absolute Neuts (auto) 10.7 H, Absolute Lymphs (auto) 3.45, Nucleated RBC % 0, PT 14.8, INR 1.2, APTT 27.3, Sodium 137, Potassium 3.9, Chloride 102, Carbon Dioxide 24.0, Anion Gap 11, BUN 19 H, Creatinine 1.32 H, Estim Creat Clear Calc 47.09, Est GFR (MDRD) Af Amer 66, Est GFR (MDRD) Non-Af 54 L, BUN/Creatinine Ratio 14.4, Glucose 225 H, Calcium 9.5, Magnesium 1.3 L, Troponin I High Sens 158 H* Rhythm Strip Rhythm Strip: Sinus Rhythm Rate: 70 Ectopy: None Assessment & Plan Assessment/Plan (1) STEMI (ST elevation myocardial infarction): (2) Paroxysmal atrial flutter: PLAN: Plan Patient is an 88-year-old male who presented to [facility] ED on 11/13/2023 as a STEMI alert. 1. STEMI ? Admit under inpatient status to ICU. Cardiology following. S/p stenting x 3 to the mid LAD on 11/12. Started on aspirin, Plavix, low-dose beta-nolberto and high intensity statin. Continued home lisinopril at reduced dose for now. Also started on low-dose Eliquis as noted below, will plan for triple therapy for 1 month per cardiology recs. Echo ordered. Continue cardiac monitoring. 2. Paroxysmal A-fib/flutter ? Follows with Dr. Meyer, last office visit was on 10/07/2023. EKG at that time showed apparent atrial flutter with rate around 75 with 2:[address] Meyer suspected he was having paroxysms of an atrial arrhythmia. 24-hour Holter monitor showed atrial flutter with 2:1 block with occasional PVCs. Does not appear patient had been started on anticoagulation prior to this hospita lization. Cardiology following as above, noted that EKG on admit appeared to show atrial flutter. Started on low-dose Eliquis. Low-dose beta-nolberto started as well. Continue cardiac monitoring. 3. Mild creatinine elevation versus CKD stage III ? Creatinine 1.32 on admit. Last creatinine values were from 2021, baseline at that time was around 1.0-1.1. Patient was given IV fluids after his heart cath. Follow-up a.m. BMP and monitor urine output. 4. Type 2 diabetes mellitus with hyperglycemia ? Home regimen of metformin 1000 mg twice daily, glimepiride 2 mg daily. Blood glucose 225 on admit. A1c 6.7%. Okay for sliding scale insulin while inpatient. Likely okay to resume home regimen on discharge. 5. Leukocytosis ? WBC count 15.8 on admit. Suspect reactive leukocytosis due to STEMI. No infectious symptoms noted. Follow-up a.m. CBC. 6. Chronic debility ? Lives at home with . Uses 4-point walker for ambulation most of the time. PT/OT/case management consulted. Chronic medical conditions: ? Hypertension: Continue home lisinopril at reduced dose as noted above. ? Neuropathy: Continue home gabapentin. ? GERD: Continue home PPI. ? Cognitive impairment: Stable. Continue home donepezil. ? Insomnia: Continue home mirtazapine. DVT prophylaxis: Eliquis CODE STATUS: DNR CCA, DNI Expected disposition: Home, 2 to 3 days Total clinical time spent by myself addressing the patient's medical issues, reviewing all the data, and collaborating with patient's care team: 55 minutes. Charges/Coding Visit Charges Inpatient E&M: 38764 Init Hosp L2
[2023-11-13 21:54] LABS: Reflex Troponin-HS? (from REC) Y
--- NOTE | 2023-11-13 22:01 | ECHOCS_ITS ---
Reason For Study: STEMI Procedure This was a 2D Doppler, Color Flow transthoracic echocardiogram. Contrast injection was performed. Exam performed portable in ICU/CCU. Left Ventricle Normal LV size. The estimated ejection fraction is 40 %. There is evidence of diastolic dysfunction. Hypokinesis of the anterior wall and apex. Right Ventricle Normal RV size. Normal systolic function. Atria The left atrium is mildly enlarged. Normal right atrium. No doppler evidence for ASD. Mitral Valve There is no mitral valve stenosis. Trivial mitral valve insufficiency. Tricuspid Valve There is no tricuspid stenosis. Trivial tricuspid valve insufficiency. Pulmonary artery systolic pressure is 40 mmHg. Aortic Valve Trisinus/trileaflet aortic valve. There is no aortic stenosis. Trivial aortic valve insufficiency. Pulmonic Valve There is no pulmonic valvular stenosis. Trivial pulmonic valve insufficiency. Great Vessels Normal aortic root. Pericardium/Pleural No pericardial effusion. Medication Diluted definity 3ml given slow IV push to enhance endocardial definition. MMode/2D Measurements & Calculations LVIDd: 4.2 cm IVSd: 1.2 cm LA dimension: 4.1 cm LVIDs: 2.7 cm LVPWd: 0.88 cm RVDd: 4.5 cm FS: 34.9 % LAV(MOD-bp): 73.7 ml LVAd ap4: 38.3 cm2 SV(MOD-sp4): 65.5 ml LAV(MOD-bp) Indexed: 34.5 ml/m2 LVLd ap4: 9.2 cm LAV(MOD-sp2): 66.1 ml EDV(MOD-sp4): 131.4 ml LAV(MOD-sp4): 76.1 ml EDV(sp4-el): 134.9 ml LVAs ap4: 25.8 cm2 LVLs ap4: 8.1 cm ESV(MOD-sp4): 65.9 ml ESV(sp4-el): 69.8 ml EF(MOD-sp4): 49.9 % EF(sp4-el): 48.3 % SV(sp4-el): 65.1 ml LA A4 area: 25.5 cm2 RA A4 area: 17.4 cm2 TAPSE: 2.0 cm Time Measurements MV dec time: 0.12 sec Doppler Measurements & Calculations MV E max stanley: 82.1 cm/sec Lat Peak E' Stanley: 10.2 cm/sec Med Peak E' Stanley: 6.5 cm/sec MV A max stanley: 78.2 cm/sec E/E' lat: 8.0 E/E' med: 12.7 MV E/A: 1.1 MV V2 max: 110.4 cm/sec MV P1/2t max stanley: 111.5 cm/sec Ao V2 max: 123.0 cm/sec MV max P.9 mmHg MV P1/2t: 52.1 msec Ao max P.1 mmHg MV V2 mean: 61.6 cm/sec Ao V2 mean: 79.2 cm/sec MV mean P.8 mmHg MV dec slope: 626.7 cm/sec2 Ao mean P.0 mmHg MV V2 VTI: 21.3 cm MVA(P1/2t): 4.2 cm2 Ao V2 VTI: 24.6 cm AV (velocity ratio): 0.83 AI max stanley: 431.1 cm/sec LV V1 max: 104.9 cm/sec MR max stanley: 567.5 cm/sec AI max P.3 mmHg LV V1 max P.4 mmHg MR max P.8 mmHg LV V1 mean P.3 mmHg AI dec slope: 213.1 cm/sec2 LV V1 mean: 70.9 cm/sec AI P1/2t: 592.5 msec LV V1 VTI: 20.5 cm PA V2 max: 110.0 cm/sec TR max stanley: 306.1 cm/sec TR max P.5 mmHg ECHO/Echo Complete W/ Contrast Interpretation Summary The estimated ejection fraction is 40 %. There is evidence of diastolic dysfunction. Hypokinesis of the anterior wall and apex The left atrium is mildly enlarged. Trivial mitral valve insufficiency. Trivial aortic valve insufficiency. Ordering Physician: Johnie Friedman Referring Physician: Jose Raul Pope Performed By: Farrukh Rockwell RCS
[2023-11-13] MEDS: Magnesium Sulfate 2 GM in Dextrose 5%-Water (100mL Bag) 100 ML IV (22:10)
[2023-11-13] MEDS: Metoprolol Tartrate 25 MG Tablet 12.5 MG PO (22:52)
[2023-11-13] MEDS: APIXABAN 2.5 MG TABLET (WCH) PO (22:52)
[2023-11-13] MEDS: Gabapentin 300 MG Capsule PO (22:53)
[2023-11-13] MEDS: Atorvastatin Calcium 40 MG Tablet PO (22:53)
[2023-11-13] MEDS: Mirtazapine 15 MG Tablet PO (22:53)
[2023-11-13] MEDS: 0.9% Normal Saline (1000mL) 1,000 ML 100 ML IV (23:11)
[2023-11-14] VITALS (28 sets, daily range): BP systolic 127–165; BP diastolic 81–107; PULSE 68–96; RESP 12–20; TEMP 36.3–36.6; O2SAT 93–99; BMI 27.4
[2023-11-14 00:09] LABS: Cholesterol 132 mg/dL (200); High Density Lipoprotein 38 mg/dL; Triglycerides 57 mg/dL; Very Low Density Lipoprotein 11 mg/dL (5-40)
[2023-11-14 01:06] LABS: Hemoglobin A1c 6.7 % (3.8-5.6)
[2023-11-14 04:18] LABS: Hematocrit 39.3 % (40-54); Hemoglobin 12.3 g/dL (13.0-16.5); Mean Corp Hgb Conc 31.3 g/dL (32-36); Mean Corpuscular Hgb 26.1 pg (27.0-32.0); Mean Corpuscular Volume 83.4 fL (80-94); Mean Platelet Vol. 10.2 fl (6.2-12.0); Platelet Count 197 K/mm3 (150-450); RBC Distribution Width CV 13.1 % (11.6-14.6); RBC Distribution Width SD 39.6 fl (35.1-43.9); Red Blood Count 4.71 M/mm3 (4.6-6.2); White Blood Count 13.7 K/mm3 (4.4-11.0)
[2023-11-14 04:36] LABS: ALB/GLOB Ratio 1.1 RATIO (0.9-2.4); AST(SGOT) 104 U/L (15-37); Alanine Aminotransfer ALT/SGPT 27 U/L (16-61); Albumin, Serum 3.6 g/dL (3.2-5.0); Alkaline Phosphatase 50 U/L (45-117); Anion Gap 10 (5-15); BUN 18 mg/dL (7-18); BUN/Creat Ratio 14.8 RATIO (10-20); Calcium,Total 9.7 mg/dL (8.5-10.1); Chloride 102 mmol/L (98-107); Creatinine, Serum 1.22 mg/dL (0.70-1.30); EST Glomerular Filtration Rate 60 mL/min (>60); Est Glom Filt Rate - Afr Amer 72 mL/min (>60); Estimated Creatinine Clearance 45.94 ml/min; Globulin 3.2 g/dL (2.2-4.2); Glucose 216 mg/dL (74-106); Potassium 4.4 mmol/L (3.5-5.1); Protein, Total 6.8 g/dL (6.4-8.2); Sodium Level 135 mmol/L (136-145)
[2023-11-14] MEDS: Gabapentin 300 MG Capsule PO ×3 (05:07→20:53)
[2023-11-14] MEDS: Metoprolol Tartrate 25 MG Tablet 12.5 MG PO ×2 (07:58→20:49)
[2023-11-14] MEDS: Clopidogrel Bisulfate 75 MG Tablet PO (08:01)
[2023-11-14] MEDS: Aspirin E.C. 81 MG Tablet PO (08:01)
[2023-11-14] MEDS: Donepezil HCl 10 MG Tablet PO (08:02)
[2023-11-14] MEDS: Lisinopril 5 MG Tablet PO ×2 (08:02→08:30)
[2023-11-14] MEDS: APIXABAN 2.5 MG TABLET (WCH) PO ×2 (08:02→20:50)
[2023-11-14] MEDS: Lansoprazole 15 MG Capsule.DR PO (08:03)
--- NOTE | 2023-11-14 08:42 | CRPHASE1_ITS ---
Patient Communication Patient Information PHII Cardiac Rehab Discussed with Patient:: Yes Guide to Cardiac Rehab Given to Patient:: Yes Cardiac Rehab Facility Choice List Given to Patient:: Yes Communication to Cardiac Rehab Choice Program [facility] CR PHII:: Communication Given to CR Consumer Analyst:: Jose Raul Pope Phase II Cardiac Rehab:: Yes Sessions:: 36 sessions - 3 days/wk, 12 weeks Cardiac Rehabilitation Info Program Information Cardiac Rehabilitation Program Information: Cardiac Rehab The cardiac rehab team at [facility] consists of highly skilled exercise physiologists, nurses, respiratory therapists and physicians working together with you. Our purpose is to help you have a full recovery and achieve the goals you set for yourself. Over the years many of our patients have returned to activities they assumed they would never do again! We can help restore your confidence and motivation to make lifestyle changes that can have a significant impact on your health and quality of life! We can help answer questions and concerns you may have about exercise, lifestyle, medications, diet, stress and anxiety which are common following a hospitalization. WE monitor ECG and vital signs during exercise and discuss your progress with you and report to your physician(s). Cardiac Rehab is proven to help reduce readmissions, improve functional capacity and lower recurrence of problems with your heart. Our Cardiac Rehab program is Certified by the [place] [employer] Pulmonary [employer] (AACVPR) and Accredited by the [employer] through our [facility]. You can contact us at . We invite you to call us with your questions or to get started in our program. If you have other questions or concerns be sure to ask your physician/provider during your follow-up visit. WE look forward to seeing you!
--- NOTE | 2023-11-14 08:43 | CRPH1.INST_ITS ---
General Education Discussed with Patient CAD and cardiac anatomy and function:: Patient communicates acknowledgment Explanation of diagnoses and procedures:: Patient communicates acknowledgment Sign/Symptoms of ND:: Patient communicates acknowledgment Antiplatelet therapy: Patient communicates acknowledgment Proper use of NTG-SL: Patient communicates acknowledgment Emergency procedures and activation of EMS: Patient communicates acknowledgment Compliance of all prescribed medications: Patient communicates acknowledgment Smoking Risk Factors Patient Nicotine/Smoking Risk Factors Are:: Never smoked Dyslipidemia Risk Factors Patient Dyslipidemia Risk Factors Are:: Total Cholesterol, Triglycerides, HDL and LDL Recommendations Recommendations Include:: Lipid profile provided, Reviewed NCEP/ATP guidelines and Therapeutic Lifestyle Change dietary guidelines Response Code Dyslipidemia Response Code:: Patient communicates acknowledgment Overweight/Obesity Risk Factors Patient Overweight/Obesity Risk Factors Are:: Overweight = 26-29 Recommendations Recommendations Include:: Weight loss of 5-10%, Reduced calorie diet and Exercise 5-7 times/week Response Code Overweight/Obesity:: Patient communicates acknowledgment Hypertension Recommendations Recommendations Include:: BP <130/80 if diabetic, DASH dietary guidelines, Decrease/maintain normal body weight and Moderation of ETOH Response Code Hypertension:: Patient communicates acknowledgment Heart Disease Recommendations Recommendations Include:: Educated family members of their risk and Educated [facility] of importance of prevention of heart disease Response Code Heart Disease Response Code:: Patient communicates acknowledgment Diabetes Risk Factors Patient Diabetes Risk Factors Are:: Elevated blood sugars and Post-op hyperglycemia Recommendations Recommendations Include:: Maintain fasting blood sugars 70-110 md/dL, Maintain HgbA1c of 6% or less, Monitor blood sugar as prescribed, Diabetic dietary guidelines and Decrease/maintain body weight Response Code Diabetes:: Patient communicates acknowledgment Metabolic Syndrome Risk Factors Patient Metabolic Syndrome Risk Factors Are [3 of 5]:: Fasting blood sugar > 100 mg/dL, Waist circumference > 35 [female] or 40 [male], High triglyceride >150, Hypertension and Low HDL <40 [male] or < 50 [female] Recommendations Recommendations Include:: Reinforce compliance to risk factor modifications and Patient is diabetic Response Code Metabolic Syndrome Response Code:: Patient communicates acknowledgment Sedentary Risk Factors Patient Sedentary Risk Factors Are:: Lack of regular exercise Recommendations Recommendations Include:: Aerobic exercise 5-7 times/week for 20-30 minutes continuously, Benefits of regular exercise, Discussed home walking program and Monitored Outpatient Cardiac Rehab Response Code Sedentary Response Code:: Patient communicates acknowledgment Stress Recommendations Recommendations Include:: Identification of stressors, and assessment of coping skills and Stress management techniques Response Code Stress Response Code:: Patient communicates acknowledgment
--- NOTE | 2023-11-14 09:27 | CASEMGMT ---
MOI POZO Assessment Face to Face with patient for initial transition planning/care coordination assessment. MOI POZO introduced self and role at [facility], pt voices understanding. Pt is A&Ox4 and is resting comfortably in bed and is calm. Pt at bedside. Care providers, pharmacy, and demographics verified. Admitting dx: STEMI LACE Strata: 2 PCP: Avery Joseph Specialists: Betsy Preferred Pharmacy: [facility] during this stay Insurance: [employer] MCR Prescription Benefit: Yes LNOK: Chioma Syed (W), Carmen Roca (SAMY) Living Arrangements: Pt lives with his in a single story home with a BM with HR with one step to enter ADLs/IADLs: States ind Transportation: Self, DME: Working [employer] with enough supplies to check BS. Rollator, walker, shower GB and chair, raised toilet with GB HHC/SNF: Denies history or needs. States history at [facility] x1 year ago Pt?s goal: Home no needs Plan: Pt states that he wishes to return home with his at time of DC. Pt refuses the need for HHC or OP therapy at this time. However, PT eval is pending. CM to follow for safe DC from [facility]. Elizabeth Tobin RN, CM
--- NOTE | 2023-11-14 10:00 | EKG12_ITS ---
Test Reason : AM EKG Blood Pressure : / mmHG Vent. Rate : 068 BPM Atrial Rate : 272 BPM P-R Int : 000 ms QRS Dur : 174 ms QT Int : 464 ms P-R-T Axes : 000 068 039 degrees QTc Int : 493 ms Atrial flutter with variable A-V block Right bundle branch block Cannot rule out Inferior infarct , age undetermined Abnormal ECG When compared with ECG of 13-NOV-2023 19:45, MANUAL COMPARISON REQUIRED, DATA IS UNCONFIRMED Confirmed by SHAE ESCOBAR, BRENT ([id number]), associate editor AISSATOU CATALAN ([id number]) on 11/17/2023 9:57:54 AM Referred By: Jose Raul Pope Confirmed By:BRENT KAUFMAN MD
--- NOTE | 2023-11-14 16:19 | PCM.PN.HOSP ---
Reason for Visit Reason for Visit: Diagnoses ST elevation (STEMI) myocardial infarction involving left anterior descending coronary artery (11/13/23) ST elevation (STEMI) myocardial infarction of unspecified site (11/13/23) Acute myocardial infarction, unspecified (11/13/23) Unspecified atrial flutter (11/13/23) Subjective Subjective Patient was seen and examined today, he has no complaints of any chest pain. Blood pressure is trending a little high today and they increase the patient's lisinopril, I discussed his care with cardiology today. Patient appears to be in atrial flutter today. This was noted yesterday. Objective Data Objective Data Vital Signs: Vital Signs Temp Pulse Resp BP Pulse Ox O2 Del Method O2 Flow Rate 97.9 F 79 16 141/94 H 96 Room Air 2 11/14/23 12:00 11/14/23 14:00 11/14/23 14:00 11/14/23 14:00 11/14/23 14:00 11/14/23 14:00 11/13/23 20:03 Oxygen Flow Rate (L/min) 2 Oxygen Delivery Method Room Air Weight: 92 kg Body Mass Index (BMI) 27.4 Intake & Output: Intake and Output for Last 24 Hours 11/12/23 11/13/23 11/14/23 23:59 23:59 23:59 Intake Total 1004 / 1004 Output Total 1000 / 1000 Balance Lab / Micro Data 11/14/23 04:05 11/14/23 04:05 Labs: Laboratory Results - last 24 hr 11/13/23 19:49: WBC 15.8 H, RBC 4.97, Hgb 13.0, Hct 42.8, MCV 86.1, MCH 26.2 L, MCHC 30.4 L, RDW Std Deviation 40.4, RDW Coeff of Brianna 13.2, Plt Count 209, MPV 10.2, Immature Gran % (Auto) 0.400, Neut % (Auto) 67.5, Lymph % (Auto) 21.9, [place] % (Auto) 7.6, Eos % (Auto) 2.3, Baso % (Auto) 0.3, Absolute Neuts (auto) 10.7 H, Absolute Lymphs (auto) 3.45, Nucleated RBC % 0, PT 14.8, INR 1.2, APTT 27.3, Sodium 137, Potassium 3.9, Chloride 102, Carbon Dioxide 24.0, Anion Gap 11, BUN 19 H, Creatinine 1.32 H, Estim Creat Clear Calc 47.09, Est GFR (MDRD) Af Amer 66, Est GFR (MDRD) Non-Af 54 L, BUN/Creatinine Ratio 14.4, Glucose 225 H, Calcium 9.5, Magnesium 1.3 L, Troponin I High Sens 158 H* 11/13/23 23:15: Hemoglobin A1c 6.7 H, Triglycerides 57, Cholesterol 132, LDL Cholesterol 83, VLDL Cholesterol 11, HDL Cholesterol 38 L, TSH 2.90 11/14/23 04:05: WBC 13.7 H, RBC 4.71, Hgb 12.3 L, Hct 39.3 L, MCV 83.4, MCH 26.1 L, MCHC 31.3 L, RDW Std Deviation 39.6, RDW Coeff of Brianna 13.1, Plt Count 197, MPV 10.2, Sodium 135 L, Potassium 4.4, Chloride 102, Carbon Dioxide 23.0, Anion Gap 10, BUN 18, Creatinine 1.22, Estim Creat Clear Calc 45.94, Est GFR (MDRD) Af Amer 72, Est GFR (MDRD) Non-Af 60, BUN/Creatinine Ratio 14.8, Glucose 216 H, Calcium 9.7, Total Bilirubin 0.50, AST 104 H, ALT 27, Alkaline Phosphatase 50, Total Protein 6.8, Albumin 3.6, Globulin 3.2, Albumin/Globulin Ratio 1.1 Radiography Diagnostic Testing: Radiology Impression Echocardiogram 11/13/23 22:01 Interpretation Summary The estimated ejection fraction is 40 %. There is evidence of diastolic dysfunction. Hypokinesis of the anterior wall and apex The left atrium is mildly enlarged. Trivial mitral valve insufficiency. Trivial aortic valve insufficiency. Ordering Physician: Johnie Friedman Referring Physician: Jose Raul Pope Performed By: Farrukh Rockwell RCS Rhythm Strip Rhythm Strip: Sinus Rhythm Rate: 70 Ectopy: None Physical Exam Const alert, oriented x3, no apparent distress, average body habitus and healthy appearing General Appearance: cooperative, well kempt and well developed Orientation / Consciousness: awake, oriented to person, oriented to place and oriented to time HEENT normocephalic, head/scalp atraumatic and moist oral mucous membranes Eyes PERRL, EOMs intact bilaterally and conjunctivae normal Neck supple, no JVD, thyroid normal and no carotid bruits General: trachea midline Resp normal respiratory effort, no retractions, no use of accessory muscles and clear to auscultation bilaterally Auscultation: Negative for rales, rhonchi or wheezes Cardio S1 normal heart sound, S2 normal heart sound, no murmurs, no rub and no gallops Cardio Narrative: Heart rate and rhythm was irregular GI normal to inspection, nondistended, normoactive bowel sounds, soft to palpation, non-tender and non-distended Extremity no clubbing, cyanosis or edema Skin no rashes or lesions noted General Skin Exam: no breakdown Neuro oriented x3, CN's II-XII intact bilaterally, moves all extremities, no focal motor deficits and no sensory deficits noted Sensorium / Orientation: awake and alert Speech: speech normal Psych affect normal Assessment & Plan Assessment/Plan (1) STEMI (ST elevation myocardial infarction): PLAN: Plan 1. STEMI-status post insertion of 3 TEAGAN and left coronary artery-patient will remain on his current medications, cardiology will adjust medications as needed, echocardiogram showed a low EF at 40% and mild pulmonary hypertension #2 paroxysmal atrial flutter-patient was placed on Eliquis yesterday by cardiology, he will be on triple therapy when he was released from the hospital #3 type 2 diabetes-patient's blood sugars will be monitored, sliding scale insulin will be used as needed #5 cerebrovascular disease-complicates care, management, recovery, and prognosis #6 mild pulmonary hypertension-complicates care, management, recovery, and prognosis #7 essential hypertension-patient's lisinopril was increased today, and may need further adjustment tomorrow Total clinical time spent by myself addressing patient's medical issues, reviewing all his data, and collaborating with this patient's care team: 35 minutes Charges/Coding Visit Charges Inpatient E&M: 78177 Subs Hosp L2
--- NOTE | 2023-11-14 16:30 | PN.CARD_ITS ---
Subjective Subjective Patient is doing well. Denies any cardiac complaints Objective Data Vital Signs: Vital Signs Temp Pulse Resp BP Pulse Ox O2 Del Method O2 Flow Rate 97.9 F 79 16 141/94 H 96 Room Air 2 11/14/23 12:00 11/14/23 14:00 11/14/23 14:00 11/14/23 14:00 11/14/23 14:00 11/14/23 14:00 11/13/23 20:03 Oxygen Flow Rate (L/min) 2 Oxygen Delivery Method Room Air Weight: 202 lb 13.204 oz Body Mass Index (BMI) 27.4 Intake & Output: Intake and Output for Last 24 Hours 11/12/23 11/13/23 11/14/23 23:59 23:59 23:59 Intake Total 1004 / 1004 Output Total 1000 / 1000 Balance Lab / Micro Data 11/14/23 04:05 11/14/23 04:05 Labs: Laboratory Results - last 24 hr 11/13/23 19:49: WBC 15.8 H, RBC 4.97, Hgb 13.0, Hct 42.8, MCV 86.1, MCH 26.2 L, MCHC 30.4 L, RDW Std Deviation 40.4, RDW Coeff of Brianna 13.2, Plt Count 209, MPV 10.2, Immature Gran % (Auto) 0.400, Neut % (Auto) 67.5, Lymph % (Auto) 21.9, [place] % (Auto) 7.6, Eos % (Auto) 2.3, Baso % (Auto) 0.3, Absolute Neuts (auto) 10.7 H, Absolute Lymphs (auto) 3.45, Nucleated RBC % 0, PT 14.8, INR 1.2, APTT 27.3, Sodium 137, Potassium 3.9, Chloride 102, Carbon Dioxide 24.0, Anion Gap 11, BUN 19 H, Creatinine 1.32 H, Estim Creat Clear Calc 47.09, Est GFR (MDRD) Af Amer 66, Est GFR (MDRD) Non-Af 54 L, BUN/Creatinine Ratio 14.4, Glucose 225 H, Calcium 9.5, Magnesium 1.3 L, Troponin I High Sens 158 H* 11/13/23 23:15: Hemoglobin A1c 6.7 H, Triglycerides 57, Cholesterol 132, LDL Cholesterol 83, VLDL Cholesterol 11, HDL Cholesterol 38 L, TSH 2.90 11/14/23 04:05: WBC 13.7 H, RBC 4.71, Hgb 12.3 L, Hct 39.3 L, MCV 83.4, MCH 26.1 L, MCHC 31.3 L, RDW Std Deviation 39.6, RDW Coeff of Brianna 13.1, Plt Count 197, MPV 10.2, Sodium 135 L, Potassium 4.4, Chloride 102, Carbon Dioxide 23.0, Anion Gap 10, BUN 18, Creatinine 1.22, Estim Creat Clear Calc 45.94, Est GFR (MDRD) Af Amer 72, Est GFR (MDRD) Non-Af 60, BUN/Creatinine Ratio 14.8, Glucose 216 H, Calcium 9.7, Total Bilirubin 0.50, AST 104 H, ALT 27, Alkaline Phosphatase 50, Total Protein 6.8, Albumin 3.6, Globulin 3.2, Albumin/Globulin Ratio 1.1 Rhythm Strip Rhythm Strip: Sinus Rhythm Rate: 70 Ectopy: None Cardiology Labs/Tests 11/13/23 19:49: WBC 15.8 H, RBC 4.97, Hgb 13.0, Hct 42.8, MCV 86.1, MCH 26.2 L, MCHC 30.4 L, Plt Count 209, MPV 10.2, Immature Gran % (Auto) 0.400, Neut % (Auto) 67.5, Lymph % (Auto) 21.9, [place] % (Auto) 7.6, Eos % (Auto) 2.3, Baso % (Auto) 0.3, Absolute Neuts (auto) 10.7 H, Nucleated RBC % 0, PT 14.8, INR 1.2, APTT 27.3, Sodium 137, Potassium 3.9, Chloride 102, Carbon Dioxide 24.0, Anion Gap 11, BUN 19 H, Creatinine 1.32 H, Est GFR (MDRD) Af Amer 66, Est GFR (MDRD) Non-Af 54 L, BUN/Creatinine Ratio 14.4, Glucose 225 H, Calcium 9.5, Magnesium 1.3 L 11/13/23 23:15: Hemoglobin A1c 6.7 H, Triglycerides 57, Cholesterol 132, LDL Cholesterol 83, VLDL Cholesterol 11, HDL Cholesterol 38 L 11/14/23 04:05: WBC 13.7 H, RBC 4.71, Hgb 12.3 L, Hct 39.3 L, MCV 83.4, MCH 26.1 L, MCHC 31.3 L, Plt Count 197, MPV 10.2, Sodium 135 L, Potassium 4.4, Chloride 102, Carbon Dioxide 23.0, Anion Gap 10, BUN 18, Creatinine 1.22, Est GFR (MDRD) Af Amer 72, Est GFR (MDRD) Non-Af 60, BUN/Creatinine Ratio 14.8, Glucose 216 H, Calcium 9.7, Total Bilirubin 0.50 Rhythm: EKG: ECHO: Stress Test: Cardiac Cath: PCI: CT Surgery: Holter monitor: EPS: PPM: CXR: Chest CT Scan: Radiography Diagnostic Testing: Radiology Impression Echocardiogram 11/13/23 22:01 Interpretation Summary The estimated ejection fraction is 40 %. There is evidence of diastolic dysfunction. Hypokinesis of the anterior wall and apex The left atrium is mildly enlarged. Trivial mitral valve insufficiency. Trivial aortic valve insufficiency. Ordering Physician: Johnie Friedman Referring Physician: Jose Raul Pope Performed By: Farrukh Rockwell RCS Physical Exam Const alert HEENT normocephalic Eyes no scleral icterus Assessment & Plan Assessment/Plan (1) Acute myocardial infarction: QUALIFIERS: Myocardial infarction type: ST elevation myocardial infarction Involved coronary artery: LAD coronary artery Qualified Code(s): I21.02 - ST elevation (STEMI) myocardial infarction involving left anterior descending coronary artery PLAN: Will keep the patient on aspirin, Plavix, beta-nolberto, statin. Agree with increasing lisinopril (2) Paroxysmal atrial flutter: PLAN: Patient appears to be in atrial flutter. Will add low-dose Eliquis. He will be on triple therapy for 1 month.
[2023-11-14] MEDS: Mirtazapine 15 MG Tablet PO (20:50)
[2023-11-14] MEDS: Atorvastatin Calcium 40 MG Tablet PO (20:51)
[2023-11-15] VITALS (13 sets, daily range): BP systolic 110–142; BP diastolic 68–91; PULSE 70–87; RESP 12–21; TEMP 36.4–37.1; O2SAT 93–98; BMI 27.8
--- NOTE | 2023-11-15 04:45 | EKG12_ITS ---
Test Reason : AM EKG Blood Pressure : / mmHG Vent. Rate : 075 BPM Atrial Rate : 275 BPM P-R Int : 000 ms QRS Dur : 162 ms QT Int : 478 ms P-R-T Axes : 239 060 213 degrees QTc Int : 533 ms Atrial flutter with variable A-V block Right bundle branch block Possible Inferior infarct , age undetermined T wave abnormality, consider lateral ischemia Abnormal ECG When compared with ECG of 14-NOV-2023 04:55, MANUAL COMPARISON REQUIRED, DATA IS UNCONFIRMED Confirmed by SHAE ESCOBAR, BRENT ([id number]), editor publications JONE PORTER ([id number]) on 11/20/2023 11:44:45 AM Referred By: Jose Raul Pope Confirmed By:BRENT KAUFMAN MD
[2023-11-15] MEDS: Gabapentin 300 MG Capsule PO (06:00)
--- NOTE | 2023-11-15 07:12 | PN.HOSP_ITS ---
Reason for Visit Reason for Visit: Diagnoses ST elevation (STEMI) myocardial infarction involving left anterior descending c oronary artery (11/13/23) ST elevation (STEMI) myocardial infarction of unspecified site (11/13/23) Acute myocardial infarction, unspecified (11/13/23) Unspecified atrial flutter (11/13/23) Subjective Subjective Feels well. No shortness of breath. Objective Data Objective Data Vital Signs: Vital Signs Temp Pulse Resp BP Pulse Ox O2 Del Method O2 Flow Rate 36.9 C 73 13 128/89 H 93 Room Air 2 11/15/23 07:00 11/15/23 07:00 11/15/23 07:00 11/15/23 07:00 11/15/23 07:00 11/15/23 07:00 11/13/23 20:03 Oxygen Flow Rate (L/min) 2 Oxygen Delivery Method Room Air Weight: 93.2 kg Body Mass Index (BMI) 27.8 Intake & Output: Intake and Output for Last 24 Hours 11/13/23 11/14/23 11/15/23 23:59 23:59 23:59 Intake Total 2604 / 2604 70 / 70 Output Total 1000 / 1000 400 / 400 Balance 1604 / 1604 -330 / -330 Lab / Micro Data 11/14/23 04:05 11/14/23 04:05 Radiography Diagnostic Testing: Radiology Impression Echocardiogram 11/13/23 22:01 Interpretation Summary The estimated ejection fraction is 40 %. There is evidence of diastolic dysfunction. Hypokinesis of the anterior wall and apex The left atrium is mildly enlarged. Trivial mitral valve insufficiency. Trivial aortic valve insufficiency. Ordering Physician: Johnie Friedman Referring Physician: Jose Raul Pope Performed By: Farrukh Rockwell RCS Rhythm Strip Rhythm Strip: Sinus Rhythm Rate: 70 Ectopy: None Physical Exam Const alert and no apparent distress Resp normal respiratory effort, no retractions, no use of accessory muscles and clear to auscultation bilaterally Cardio regular rate, regular rhythm, S1 normal heart sound and S2 normal heart sound GI normal to inspection, nondistended, normoactive bowel sounds, soft to palpation, non-tender and non-distended Assessment & Plan Assessment/Plan (1) STEMI (ST elevation myocardial infarction): PLAN: Plan STEMI * s/p PCI w 3 TEAGAN to LAD. * TMT w ASA, clopidogrel, metoprolol tartrate, lisinopril * echo shows an EF 40%. Hypokinesis of the anterior wall and apex. * Follow up with cardiology. paroxysmal atrial flutter * stable. on apixaban and metoprolol Chronic conditions: * type 2 diabetes-patient's blood sugars will be monitored, sliding scale insulin will be used as needed * cerebrovascular disease-complicates care, management, recovery, and prognosis * mild pulmonary hypertension-complicates care, management, recovery, and prognosis * essential hypertension-patient's lisinopril was increased today, and may need further adjustment tomorrow VTE prophylaxis: not indicated as pt is anticoagulated.
[2023-11-15] MEDS: APIXABAN 2.5 MG TABLET (WCH) PO (08:44)
[2023-11-15] MEDS: Donepezil HCl 10 MG Tablet PO (08:44)
[2023-11-15] MEDS: Lansoprazole 15 MG Capsule.DR PO (08:44)
[2023-11-15] MEDS: Metoprolol Tartrate 25 MG Tablet 12.5 MG PO (08:45)
[2023-11-15] MEDS: Clopidogrel Bisulfate 75 MG Tablet PO (08:45)
[2023-11-15] MEDS: Aspirin E.C. 81 MG Tablet PO (08:46)
[2023-11-15] MEDS: Lisinopril 10 MG Tablet PO (08:46)
--- NOTE | 2023-11-15 10:00 | EKG12_ITS ---
Test Reason : STEMI Blood Pressure : / mmHG Vent. Rate : 070 BPM Atrial Rate : 070 BPM P-R Int : 108 ms QRS Dur : 166 ms QT Int : 476 ms P-R-T Axes : 042 -11 -03 degrees QTc Int : 514 ms Atrial flutter Right bundle branch block Possible Inferior infarct , age undetermined Cannot rule out Anterior infarct , age undetermined Abnormal ECG Confirmed by ORQUIDEA ESCOBAR, KIMO ([id number]), purchase request editor JONE PORTER ([id number]) on 11/17/2023 1:03:32 PM Referred By: Jose Raul Pope Confirmed By:PROSPER POPE MD
--- NOTE | 2023-11-15 10:08 | DS.PCM_ITS ---
Providers Date of Admission: 11/13/23 Primary Care Physician: Dr. Avery Joseph MD Reason For Visit: stemi Diagnosis Discharge Diagnosis (1) STEMI (ST elevation myocardial infarction): Status: Acute Code(s): I21.3 - ST elevation (STEMI) myocardial infarction of unspecified site Plan STEMI * s/p PCI w 3 TEAGAN to LAD. * TMT w ASA, clopidogrel, metoprolol tartrate, lisinopril * echo shows an EF 40%. Hypokinesis of the anterior wall and apex. * Follow up with cardiology. paroxysmal atrial flutter * stable. on apixaban and metoprolol Chronic conditions: * type 2 diabetes-patient's blood sugars will be monitored, sliding scale insulin will be used as needed * cerebrovascular disease-complicates care, management, recovery, and prognosis * mild pulmonary hypertension-complicates care, management, recovery, and prognosis * essential hypertension-patient's lisinopril was increased today, and may need further adjustment tomorrow VTE prophylaxis: not indicated as pt is anticoagulated. Medications at Discharge Home Medications lansoprazole 15 mg capsule,delayed release 15 mg PO DAILY stomach acid 07/03/21 metformin 1,000 mg tablet 1,000 mg PO BID diabetes 07/03/21 donepezil 10 mg tablet 10 mg PO QDAY 10/07/23 gabapentin 300 mg capsule 300 mg PO TID 10/07/23 glimepiride 2 mg tablet 2 mg PO QDAY 10/07/23 lisinopril 10 mg tablet 10 mg PO DAILY BP #90 tabs 10/07/23 mirtazapine 15 mg tablet 15 mg PO QHS 10/07/23 tumeric PO DAILY 10/07/23 apixaban 5 mg tablet (Eliquis) 2.5 mg (1/2 x 5 mg) PO BID #60 tabs 11/15/23 aspirin 81 mg tablet,delayed release 81 mg PO DAILY@0800 #0 tabs 11/15/23 atorvastatin 40 mg tablet 40 mg PO QHS #30 tabs 11/15/23 clopidogrel 75 mg tablet 75 mg PO DAILY #30 tabs 11/15/23 metoprolol tartrate 25 mg tablet 12.5 mg (1/2 x 25 mg) PO BID #60 tabs 11/15/23 Hospital Course Operations None Procedures 2-D Echocardiogram and Cardiac catheterization Summary of Care Provided Minutes Spent on Discharge: 32 Weight / BMI Weight Weight: 93.2 kg Body Mass Index (BMI) 27.8 ABG / Lab / Microbiology Data 11/14/23 04:05 11/14/23 04:05 Radiography Diagnostic Testing: Radiology Impression Echocardiogram 11/13/23 22:01 Interpretation Summary The estimated ejection fraction is 40 %. There is evidence of diastolic dysfunction. Hypokinesis of the anterior wall and apex The left atrium is mildly enlarged. Trivial mitral valve insufficiency. Trivial aortic valve insufficiency. Ordering Physician: Johnie Friedman Referring Physician: Jose Raul Pope Performed By: Farrukh Rockwell RCS D/C Instructions Discharge Diet: 2000 Calorie Control Diet Meaningful Use Info Meaningful Use Meaningful Use Diagnoses (Choose all that apply): AMI AMI/Post PCI/Angioplasty Aspirin given w/in 24hrs of arrival?: Yes ASA at discharge?: Yes Antiplatelet Therapy at Discharge:: Yes Statins at discharge?: Yes Krishna/ARB at discharge?: Yes Beta Mable at discharge?: Yes Done w/ Acute AK measure.: Yes Documented LVEF (%): 40 Ischemic Stroke Statin Dosing Therapy Reference: STATIN DOSE THERAPY REFERENCE: * Patients > 75 years receive moderate or high dose statin therapy. * Patients 75 years or YOUNGER should receive HIGH intensity statin dose unless contraindicated. You will be required to document reason for non-treatment if statin daily dose does not meet guidelines. HIGH DOSE STATIN THERAPY DAILY Atorvastatin > than or = to 40 mg Rosuvastatin > than or = to 20 mg Amlodipine + Atorvastatin > than or = to 2.5/40 mg Ezetimibe + Simvastatin 10/80 mg Simvastatin 80mg Discharge Plan Admission Admit Date/Time: 11/13/23 21:47 Primary Reason for Your Visit: myocardial infarction Attending Provider: Shankar Cisse Primary Care Provider: Avery Joseph Consulting Providers: Jose Raul Pope; Julio C Bartlett Instructions Patient Instructions: Coronary Stents, Cardiac Cath Transradial Additional Instructions / Restrictions: Please follow-up with cardiology as outpatient. They will make determination as to when you can start cardiac rehabilitation. Discharge Orders/Prescriptions Prescriptions: New Eliquis 5 mg Tablet 2.5 mg PO BID Qty: 60 0RF atorvastatin 40 mg Tablet 40 mg PO QHS Qty: 30 0RF clopidogrel 75 mg Tablet 75 mg PO DAILY Qty: 30 0RF aspirin 81 mg Tablet,Delayed Release (Dr/Ec) 81 mg PO DAILY@0800 Qty: 0 0RF metoprolol tartrate 25 mg Tablet 12.5 mg PO BID Qty: 60 0RF Continued lansoprazole 15 mg capsule,delayed release(DR/EC) 15 mg PO DAILY glimepiride 2 mg tablet 2 mg PO QDAY mirtazapine 15 mg tablet 15 mg PO QHS donepezil 10 mg tablet 10 mg PO QDAY gabapentin 300 mg capsule 300 mg PO TID tumeric PO DAILY lisinopril 10 mg tablet 10 mg PO DAILY Qty: 90 3RF Held metformin 1,000 mg tablet 1,000 mg PO BID Hold Instructions: Resume on 11/18/23. Referrals / Follow Up: [facility] [Provider Group] - Within 1 Month Avery Joseph MD [Primary Care Provider] - Within 2 Weeks Disposition Disposition (needs filled in before D/C Order can be placed): Home, Self Care Charges/Coding Visit Charges Inpatient E&M: 91817 Disch Hosp >30min
--- NOTE | 2023-11-17 10:26 | CL.I_ITS ---
Patient Name: DARWIN GRUBER Study Date: 11/13/2023 Performing: Milo Pope MD Ht: 72 inches 182.88 cm : 1935 Wt: 209.1 lbs 94.7 kg Age: 87 Gender: male BSA: 2.17 PROCEDURE(S) PERFORMED DC02-([id number])C/COR IC16-([id number])AMI, TEAGAN OR PTCA, ARTERY/GRAFT, SINGLE VESSEL CLINICAL PROFILE AND CO-MORBIDITIES Indications: ACS <= 24 hrs Heart Failure: None Stress/Imaging Stress/Image Study Performed: No CAD Presentations: STEMI. Symptom onset Date/Time: 11/13/23 Time Not Available CONCLUSIONS CAD as described. Successful drug-eluting stent to mid LAD RECOMMENDATIONS DESCRIPTION OF PROCEDURE The patient arrived to the procedure lab. The risks and benefits of the procedure as well as a full description of our services here and lack of surgical backup were fully explained to the patient and/or their significant other prior to the catheterization. The Timeout was completed, verifying the correct patient and procedure. The patient's procedural site was prepped and draped in the usual fashion. Local anesthetic was given subcutaneously to right radial region with Lidocaine 2%. Using a modified Seldinger technique, arterial access was obtained via the right radial artery, a 6Fr sheath was inserted.. Left Coronary Artery selective angiography was performed in multiple views using a 6 Fr.. Right Coronary Artery selective angiography was then performed in multiple views using a 5 Fr. JR 4 catheterThe images were reviewed and options discussed. A decision was then made to proceed with an Intervention, IVUS or other adjunct procedure. xb3 Guide catheter was inserted and engaged into the LCA. bmw Guide wire was advanced to the LAD. emerge 2.5 x 12 Balloon catheter was advanced across lesion in the LAD, mid. PTCA balloon inflated at 10 atms for 10 secs. PTCA balloon inflated at 10 atms for 14 secs. Angiogram performed post balloon dilatation. asuncion 2.25 x 15 Drug Eluting stent was advanced across the lesion in the LAD, mid. Angiogram performed post stent deployment. asuncion 2.5 x 15 Drug Eluting stent was advanced across the lesion in the LAD, mid. Angiogram performed post stent deployment. Angiogram performed post stent deployment. bmw Guide wire was advanced to the LAD. asuncion 3.5 x12 Drug Eluting stent was advanced across the lesion in the LAD, mid. Angiogram performed post stent deployment. The arterial sheath was pulled and a TR Band was applied for hemostasis CORONARY ANGIOGRAPHY DOMINANCE: Right Dominant LEFT MAIN: Mild luminal irregularities LEFT ANTERIOR DESCENDING ARTERY: MID LAD: 100 % Stenosis CIRCUMFLEX ARTERY: Mild diffuse disease RIGHT CORONARY ARTERY: Mild diffuse disease INTERVENTION INFORMATION LESION SITE: LAD (Mid) Lesion Complexity: High/C, chronic total occlusion: No, lesion at bifurcation: No, thrombus present: Yes, lesion length: 28 mm, culprit lesion: Yes, Previously treated lesion: No Pre Stenosis: 100 % Pre intervention ELIZABETH flow: 0 PROCEDURE: Drug Eluting Stent with pre dilatation. Post Stenosis: 0 % Post intervention ELIZABETH flow: 3 Lesion Devices: Cordis 6 Fr XB3.0 100cm Guide Catheter Rene Sci EMERGE MR 2.50x12 BALLOON [place] .014 190cm BMW [place] Straight Medtronic 2.50 x 15 ASUNCION FRONTIER TEAGAN Medtronic 3.5 x 12 ASUNCION FRONTIER TEAGAN COMPLICATIONS No Complications PROCEDURE MEDICATIONS Fentanyl 25 mcg IV Oxygen: 2 L/min via nasal cannula Heparin given IA 11/13/2023 20:37:10 Heparin 2000 unit(s) IV 11/13/2023 20:37:22 Nitro 200 mcg IC 11/13/2023 20:59:05 Verapamil 2.5mg, Ntg 100mcgs, 3000 units of Heparin given IA 11/13/2023 20:37:10 SUMMARY OF HEMODYNAMIC DATA Time AIR REST ECG 20:22:38 AO 165/90 (124) SA 20:42:15 Signed By Milo Pope MD On 11/17/2023 10:26:10 AM Milo Pope MD
--- NOTE | 2023-12-08 11:49 | ECQM.STEMI ---
STEMI STEMI ED Door Time / Other REG STEMI EKG Time (1) Acute myocardial infarction: Resolved ~11/13/23 19:45 Balloon/Aspiration Date-Time Date of Balloon/Aspiration:: 11/13/23 Time of Balloon/Aspiration:: 20:48
== END 2023-11-15 11:00 | disposition home or self-care (01) | DRG 322 ==
LOC: ED 20:03 → ICU 21:51
PROVIDERS: Hospitalist; Admitting Provider Specialist; Emergency Provider Emergency Medicine; PCP Family Medicine; Referring Provider Specialist
DX: I21.02 ST elevation (STEMI) myocardial infarction involving left anterior descending coronary artery (principal); I48.92 Unspecified atrial flutter; E11.40 Type 2 diabetes mellitus with diabetic neuropathy, unspecified; E11.22 Type 2 diabetes mellitus with diabetic chronic kidney disease; I48.0 Paroxysmal atrial fibrillation; E11.65 Type 2 diabetes mellitus with hyperglycemia; G31.84 Mild cognitive impairment of uncertain or unknown etiology; N18.30 Chronic kidney disease, stage 3 unspecified; I12.9 Hypertensive chronic kidney disease with stage 1 through stage 4 chronic kidney disease, or unspecified chronic kidney disease; K21.9 Gastro-esophageal reflux disease without esophagitis; I25.10 Atherosclerotic heart disease of native coronary artery without angina pectoris; G47.00 Insomnia, unspecified; R53.81 Other malaise; Z66 Do not resuscitate; Z79.84 Long term (current) use of oral hypoglycemic drugs; Z79.899 Other long term (current) drug therapy; Z86.73 Personal history of transient ischemic attack (TIA), and cerebral infarction without residual deficits
CPT/HCPCS: 80048; 80053; 80061; 83036; 83735; 84443; 84484; 85025; 85027; 85610; 85730; 92941; 93005; 93306; 93454; 94668; 97162; 97166; 99152; 99285; J7030; J7040; Q9957; Q9967; A4216; C1725; C1769; C1874; C1887; C1894; C8929; C9606; J1327; J2405

== ENCOUNTER → 2023-11-27 | Outpatient (CLI) | payer MEDICARE, SELFPAY ==
--- NOTE | 2023-11-27 09:06 | CR.HP_ITS ---
CR - History & Physical General Arrival date:: 11/27/23 Arrival time:: 08:55 Date of Referral:: 11/17/23 Date of CR Evaluation:: 11/27/23 Referring Physician: Dr. Zain Meyer Primary Diagnosis: STEMI, PCI w/coronary History of Present Cardiac Event Onset Date Acute Myocardial Infarction within 12 months:: Yes (ST elevation myocardial infarction) PTCA or coronary stenting:: Yes Vessel: 3 TEAGAN to the LAD 11/14/2023 Type of Symptoms:: arm hurting real bad, no related chest pain or pressure. Interventions with present event:: Taken to computer lab aide for intervention of 3 TEAGAN to the LAD Were there any complications?: no Medications Ambulatory Orders Medication Instructions Recorded lansoprazole 15 mg capsule,delayed 15 mg PO DAILY stomach acid 07/03/21 release metformin 1,000 mg tablet 1,000 mg PO BID diabetes 07/03/21 donepezil 10 mg tablet 10 mg PO QDAY 10/07/23 gabapentin 300 mg capsule 300 mg PO TID 10/07/23 glimepiride 2 mg tablet 2 mg PO QDAY 10/07/23 lisinopril 10 mg tablet 10 mg PO DAILY BP #90 tabs 10/07/23 mirtazapine 15 mg tablet 15 mg PO QHS 10/07/23 tumeric PO DAILY 10/07/23 apixaban 5 mg tablet (Eliquis) 2.5 mg (1/2 x 5 mg) PO BID #60 tabs 11/15/23 aspirin 81 mg tablet,delayed 81 mg PO DAILY@0800 #0 tabs 11/15/23 release atorvastatin 40 mg tablet 40 mg PO QHS #30 tabs 11/15/23 clopidogrel 75 mg tablet 75 mg PO DAILY #30 tabs 11/15/23 metoprolol tartrate 25 mg tablet 12.5 mg (1/2 x 25 mg) PO BID #60 11/15/23 tabs Allergies Allergies Proton Pump Inhibitors Allergy (Verified 11/13/23 20:09) Other hyponatremia oxycodone Adverse Reaction (Verified 11/13/23 20:09) Other Sleep Disorder Evaluation Hx of Sleep Apnea: Yes Do you snore loudly (louder than talking or can be heard through closed doors)?: No Do you often feel tired/ fatigued/ sleepy during daytime?: No Has anyone observed you stop breathing during sleep?: No History of Hypertension (for STOP score): Yes STOP Results: Negative Advanced Directives Advanced Directives Power of Patient Support Associate: No Living Will: Yes Advance Directives Information Provided: No Advance Directives on File: No DNR Order?:: No MOLST See MOLST form: No Past Medical History Covid-19 Screening Physicial Symptoms Fever: No Unexplained muscle aches: No Current respiratory symptoms: No Upper respiratory infections symptoms: No Gastro-intestinal symptoms: Yes (esophageal stricture, GERD, Peptic Ulcer Disease) Vfs-Vzja-Cqrjqf symptoms: No Other Clinical Concerns Has tested positive for COVID-19 in last 30 days: No Exposure Risk Had contact w/person w/symptoms or Covid-19 (+) last 14 days: No Has High Risk Exposures ID'd by Health dept/Inf Control team: No Pertinent Comorbidities 65 years or older:: Yes Lives in Assisted Living facility:: No Has a chronic lung disease or moderate to severe asthma:: No Has a serious heart condition:: No Immunocompromised:: No Severely obese (Body Mass Index of 40 or higher):: No Diabetic:: Yes Has chronic kidney disease undergoing dialysis:: No Has liver disease:: No Past Medical Illness Past Medical History (Updated 11/23/23 @ 00:01 by Miguel Cleaning) Arthritis M19.90 Atherosclerotic heart disease of [place] coronary artery without angina pectoris I25.10 BPH (benign prostatic hyperplasia) N40.0 Debility R53.81 Diabetes mellitus E11.9 Esophageal stricture K22.2 Essential (primary) hypertension I10 Gastroesophageal reflux disease K21.9 GERD (gastroesophageal reflux disease) K21.9 History of diabetes mellitus Z86.39 History of stroke Z86.73 Hyperlipidemia E78.5 Hyperlipidemia E78.5 Hypertension I10 Hypomagnesemia E83.42 Hypomagnesemia E83.42 Hyponatremia E87.1 Iron deficiency anemia D50.9 LVH (left ventricular hypertrophy) I51.7 Muscle spasm M62.838 Neuropathy G62.9 Paroxysmal atrial flutter I48.92 Premature ventricular contractions I49.3 PUD (peptic ulcer disease) K27.9 Rheumatoid arthritis M06.9 Rheumatoid arthritis M06.9 Syncope R55 Type 2 diabetes mellitus without complications E11.9 Past Surgical History Past Surgical History (Updated 11/17/23 @ 10:43 by Kathie Devries) History of left heart catheterization (11/2003) Z98.890 History of total hip replacement Z96.649 right hip july 2017 History of total right knee replacement Z96.651 Hx of cholecystectomy Z98.890, Z90.49 Stented coronary artery (11/17/23) Z95.5 Onxy 3.5 X 12 to mid LAD Family History Summary Family History Father GI bleed age 42 secondary to ruptured ulcer. Mother Lupus Denied age 83, had history of Lupus. Social History Smoking History Smoking Status: Never smoker Hx Tobacco Use: No Hx Smoking Exposure: No Alcohol Use Alcohol Usage: No Substance Abuse Hx Substance Use: No Occupation Occupation (List type of work in comments):: Retired Hobbies, Recreation, Social Activities Hobbies: Sports (used to play golf,), Watch TV (Watching TV sports ([place])) and Other (Acrylic Painting (art work)) Recreational Activities: I am able to engage in all my recreational activities Social Environment Status Marital Status: ( 63 years in June!) Current Living Arrangements Living Environment:: Spouse Children How many children do you have?: 3 Do any of your children live nearby?: Yes Safety Do you feel safe in your surroundings?: Yes Assistance Do you need any assistance at home?: no Review of Systems Review of Systems Hints Review of Present Symptoms: Reports Shortness of Breath with Exertion (occasionally after a shower, really don't do many strenuous activities), Fatigue (get fatigued pretty easy if doing something), Heart Arrhythmia/Irregularities (Stable atrial flutter with right bundle branch block), Appetite - Normal (cut down on portions), Appetite - Special Diet (no fried foods, no added salt, ) and Sleep - Normal; Denies Shortness of Breath at Rest, Angina, Dizziness/Lightheadedness or Sexual Changes Pain Is Patient Pain Free?: No Pain Location: upper extremity (left shoulder replacement) and lower extremity (right hip replacement, right knee replacement) Pain Level: 0/10 Risk Factor Assessment Vital Signs Temperature: 98.7 F Respiratory Rate: 14 Pulse Ox: 96 Blood Pressure: 147/83 Pulse Pulse Rate: 79 Pulse Rhythm: Regular Hypertension How long have you been treated?: Quite a long time per at least more thna the past 5 years On medication(s)?: Yes Blood Pressure Sitting - Left Arm: 147/83 Blood Cholesterol/Lipids Total Cholesterol (mg/dL) Goal = less than 200 mg/dL: 132 HDL Cholesterol (mg/dL) Goal = less than 40 mg/dL: 38 LDL Cholesterol (mg/dL) Goal = less than 70 mg/dL: 83 Triglycerides (mg/dL) Goal = less than 150 mg/dL: 57 Diabetes Diabetic History: Type II, Medication Dependent (1,000mg Metformin BID) and Insulin Dependent (Glimepiride 2 mg) Nutrition Referral for Diabetes: Yes Obesity Height: 6 ft Weight:: 202 lb Weight in Pounds: 202.0 lbs [facility]) Body Mass Index (BMI): 27.3 Nutritional Referral for Obesity: No Physical Inactivity Physical Inactivity: None Risk Stratification Risk Guidelines: Lowest Risk: Risk Factor for Smoking, Risk Factor for Dysl ipidemia, Risk Factor for Diabetes, Risk Factor for Obesity and Risk Factor for Depression, Moderate Risk: Risk Factor for Sedentary Lifestyle and Highest Risk: Risk Factor for Hypertension (Resting 147/83 above recommendation 130/80) and Risk Factor for Sedentary Lifestyle For Smoking Smoking Risk Guidelines For Dyslipidemia Dyslipidemia Risk Guidelines For Diabetes Mellitus Diabetes Risk Guidelines For Obesity/Overweight Obesity/Overweight Risk Guidelines For Hypertension Hypertension Risk Guidelines For Sedentary Lifestyle Sedentary Lifestyle Risk Guidelines For Depression Depression Risk Guidelines Family History Family History Father GI bleed age 42 secondary to ruptured ulcer. Mother Lupus Denied age 83, had history of Lupus. Motivation Motivation to Participate On a scale of 1 to 10, how prepared are you to commit to attending program?: 7 What do you see as barriers to successfully being able to complete the program?: nothing can think of What do you see as the benefits of succesfully completing the program? In other words, what do you hope to get out of participating in the program?: Building up heart muscle, health Are there issues you are dealing with that will interfere with completing the program?: no Do you have a spouse or signficant other, family or friends who will help suppor t you to complete the program?: yes
--- NOTE | 2023-11-27 09:06 | PCM.CR.ITP ---
Diagnosis General Information Admitting Diagnosis: STEMI, PCI w/coronary stenting Secondary Diagnosis: HTN, DM Type II, HLD, Cerebral Vascular Disease Personal Learning Style:: Audio/Visual and Written Barriers to Learning: Hearing Impairment (Bilateral hearing aids) Stage of change r/t lifestyle modifications:: Action Gave educational material for:: Treating Heart Disease, How The Heart Works, What it means to have Heart Disease, How Coronary Artery Disease is Diagnosed, Heart Procedures, What Heart Medications Do, Risk Factors & Modifications, Living an Active Life, Nutrition, Emotions & Heart Disease, Stress Management & Relaxation and Sleep Disorders & Heart Disease Education/Goals Individual Counseling: Initial Assessment: Abnormal Cholesterol Levels, High Blood Pressure and Diabetes Cardiac Rehabilitation Goals Personal Goals: Initial Assessment: Improve energy level, Participate in home exercise program, Improve knowledge of cardiac disease and Improve muscle strength and endurance Scale for measuring improvement of personal goals Diagnosis & Disease Process Outcomes/Goals: Pt IDs own risk factors & lifestyle modifications by Session 10, Verbalizes symptoms of angina & response by session 3. and Pt independently manages Plan/Interventions: Assist Pt to ID & engage in lifestyle modification to reduce CVD risk, Instruct on individual risk factors, Review symptoms of angina & emergency actions and Review secondary diagnosis & identify educational needs. Safety Referral to Physical Therapy: No Referral to [facility] Case Management: No Fall Risk Assessed:: Yes Assistive Devices:: Walker and Wheelchair (Only when walking long distance) Exercise - Initial Assessment Visit Date of Eval: 11/27/23 Session #:: 0 (Pre-program evaluation) Mets: Pre-: >5 METS for 30 minutes by discharge Physician Prescribed Exercise Modalities: NuStep, SciFit (until patient feels safe on the [employer] bike) and Lateral Database Programmer Analyst (until patient regains some strength to ambulate safely) Frequency: 3x/week for 12 weeks [36 sessions] Intensity: 60-80% of age predicted maximum heart rate reserve Duration: 30 - 45 minutes Current METSs:: 2.0 Target Heart Rate:: 86-100 Resting Blood Pressure: 147/83 EKG Type: Atrail flutter (stable) w/right bundle branch block Outcomes & Goals Goals:: Verbalizes understanding of THR, RPE & goal METS by session 6, Documents in home exercise log/reports 30 min aerobic 5 day/wk by DC and Demonstrates accurate pulse taking by DC Intervention & Plan Exercise Program Goals: Instruct on personal THR & RPE, Instruct on MET level & personal MET goal, Show patient to take own pulse /validate performance until accurate and Instruct on home exercise Physical Activity Home Exercise Physical Activity - Home Exercise: Safe Exercise, Warm-up, Self-monitoring, Cool-Down, Home Exercise > 30 min Daily and Sitting Time <3 hours/daily Outcomes & Goals Outcomes/Goals: Demonstrates correct Warm-up/exercise Cool-Down (S3) if = 2.5 METs, Verbalizes symptoms of exercise intolerance by Session 3 (S3) and Demonstrate safe equipment use (S3) & follows exercise prescrition (6) Intervention & Plan Plan/Intervention: Instruct warm-up & cool-down if exercising at > 2 METs, Instruct on symptoms of exercise intolerance & actions to take, Instruct & monitor on saf and Assess intial functional capacity & safety risk Nutrition - Initial Assessment Program Goals Nutrition Program Goals Patient has diagnosis of Hyperlipidemia (ICD E78)?: Yes Visit Date of Eval: 11/27/23 Session #:: 0 (pre-program evaluation) Cholesterol/Lipids (Other Core Measures) Triglycerides (mg/dL): 57 Total Cholesterol (mg/dL): 132 LDL Cholesterol (mg/dL): 83 HDL Cholesterol (mg/dL): 38 Determine presence & major risk factors that modify LDL goal: Hypertension or hypertensive medication and Age men > 45 years; women >/= 55 years Outcomes/Goals: Pt IDs own risk factors & lifestyle modifications by Session 10, Verbalizes symptoms of angina & response by session 3. and Pt independently manages Intervention/Plan: Instruct on personal lipid levels & lipid goals/NCEP guidelines and Instruct on cholesterol Referral to dietitian:: Yes Diabetes (Other Core Measures) Diabetes Type: Diagnosis Type II ICD-10 E11 Insulin dependent injection/pump?: Yes (Glimeperide 2mg) Non-Insulin Dependent?: Yes (Metformin 1,000mg BID) Do you monitor your blood sugar at home?: Yes Referral to Diabetic Clinic:: Yes Outcomes/Goals:: Able to state symptoms of, Able to state and Able to state Intervention/Plan:: Instruct on, Refer to and Instruct on Weight Mgt (Other Care) Not Applicable: Yes Height: 6 ft Weight:: 202 lb BMI: 27.3 Diagnosis Overweight/Obesity BMI> 30% ICD-10 E66: No Diagnosis High BMI/Morbid Obesity BMI> 35% ICD-10 Z68: No Intervention/Plan: Instruct on ideal BMI & set weight loss goal w/patient Healthy Eating Habits Will attend diet classes:: Yes Outcomes/Goals:: Consume diet rich in vegs,fruits,whole grain/high fiber,fish,lean meat and Limit sat/trans fats,cholesterol & added salts & sugars Intervention/Plan:: Assess current eating habits Education Gave educational materials for:: Signs & symptoms of hypoglycemia, Signs & symptoms of hyperglycemia, Relate diabetes to coronary artery disease and Healthy eating Core - Initial Assessment Visit Date of Eval: 11/27/23 Session #:: 0 (Pre-program evaluation) Medication Compliance Preventative Medication(s):: Aspirin, Clopidogrel/P2Y12 inhibit, Statin/lipid, Beta nolberto and Eliquis H/O mental health issues: depression, anxiety, or addiction?: No Doesn?t believe in the benefits of treatment?: No Believes medications are unnecessary or harmful?: No Has a concern about medication side effects?: No Expresses concern over the cost of medications?: No Outcomes/Goals: Verbalizes medications,desired effect & common side effects @ DC, Pt self-reports following medication regimen and Keeps card in wallet w/medications listed by DC Interventions/plans: Instruct on medication effects & side effects, Review medication list w/patient every two weeks and Instruct importance of taking meds as ordered & assist problem solving Tobacco Use Tobacco Use: Non-smoker Hypertension Hypertension Diagnosis:: Hypertension ICD-10 I10 Resting Blood Pressure:: 147/83 (Goal is to have patient resting BP <130/80) [place] [employer] Hypertension Guidelines Outcomes/Goals: Able to verbalize/achieve optimal blood pressure <130/80 and Incorporates diet changes & exercise for blood pressure control by DC Interventions/plan: Instruct on optimal blood pressure, hypertension & medications and Instruct on effects of sodium, alcohol, stress, exercise &hypertension Tobacco Cessation Referral Smoking Cessation Referral:: No Individual Education/Counseling:: No Education Schedule Given:: Yes Psychosocial - Initial Assess VIsit Date of Eval: 11/27/23 Session #:: 0 Not Applicable: Yes History of previous Mental disease:: No Target Goals Target Goals Psychosocial Test Tool Used:: Detectent QOL Cardiac and PHQ-9 Questionnaire phq-9 Severity Referral to Behavioral Health PS - Interventions: Yes: Attend Stress Management Classes and No: Referral to Behavioral Health if PHQ-9 score >9:, No: Referral to [facility] and No: Referral to Physician if PHQ-9 if score is 5-9: Outcomes/Goals: See list Psychosocial Outcomes/Goals:: ID's personal stressors & 2 strategies to manage stress by discharge Intervention/Plan: See List Interventions/Plan:: Assess stressors,coping strategies & signs of derpression on admission, Instruct/assist pt to develop coping & personal stress Mgt strategies, Instruct patient to recognize signs & symptoms of depression and Instruct patient to recog Patient Health Questionnaire PHQ-9 Screening Initial Assessment: 1. Little interest or pleasure in doing things: Not at all 2. Feeling down, depressed, or hopeless: Not at all 3. Trouble falling or staying asleep, or sleeping too much: Not at all 4. Feeling tired or having little energy: Several days 5. Poor appetite or overeating: Not at all 6. Feeling bad about yourself -- or that you are a failure or have let yourself or your family down: Not at all 7. Trouble concentrating on things, such as reading the newspaper or watching television: Not at all 8. Moving or speaking so slowly that other people could have noticed. Or the opposite - being so fidgety or restless that you have been moving around a lot more than usual: Not at all 9. Thoughts that you would be better off , or of hurting yourself in some way: Not at all How difficult have these problems made it for you to do your work, take care of things at home, or get along with other people?: Not difficult at all Total Score: 1 JONO-Q SV Test Statements CAD is a disease of the arteries in the heart: True Examples of risk factors for heart disease: True Angina is chest pain or discomfort: True The benefits of resistance training include: True Eating more meat and dairy products: False Anti-platelet medications such as aspirin are important: True The only effective way to manage stress: False An exercise warm-up slowly increases heart rate: True Prepared, processed foods usually have high sodium: True Depression is common after a heart attack: True The statin medications lower cholesterol: I Don't Know To control blood pressure, lower the amount of sodium: True If someone gets chest discomfort during walking: False Transfats are partially hydrogenated vegetable oils: I Don't Know Sleep apnea that is not treated increases the risk: True To control cholesterol, one should become a vegetarian: False Someone knows if he/she is exercising at the right level: True Diabetes cannot be prevented with exercise & health eating: True Stress is a large risk for heart attack: True A diet that can help lower blood pressure is rich in: True Total Score Total Correct Responses: 15 Self-Efficacy 6-Item Scale Initial Assessment: We would like to know how confident you are in doing certain activities. Please select your confidence level for: Fatigue Select Number: 5 Physical Discomfort or Pain Select Number: 5 Emotional Distress Select Number: 8 Other Symptoms or Health Problems Select Number: 5 Different Tasks and Activities Select Number: 8 Medication Select Number: 7 Total Score:: 6 Nutrition Survey Nutrition Survey Instructions Scoring Instructions Nutrition Survey Initial: Have you lost >10 lbs over the past 2 months without trying?: No Are you following a special diet at home for diabetes, low fat, or low salt?: Yes Are you interested in meeting with a dietitian for help understanding your diet?: No Do you eat less than 3 meals a day?: No Do you eat fatty meats (ashley, sausage, ribs, etc), fried foods, desserts, large amounts of salad dressings, margarine, butter, or cheese most days?: No Do you have food allergies? [Enter types in comment field]: No Do you eat in restaurants more than 3 times a week?: Yes Do you season food with salt, seasoning salt, or garlic salt?: Yes Do you used canned, boxed, frozen meals, or soups, seasoning packets?: No Total Score:: 3 Exercise - Final/Discharge Physician Prescribed Exercise Modalities: NuStep, SciFit (until patient feels safe on the [employer] bike) and Lateral Database Programmer Analyst (until patient regains some strength to ambulate safely) Frequency: 3x/week for 12 weeks [36 sessions] Intensity: 60-80% of age predicted maximum heart rate reserve Current METSs:: 2.0 Target Heart Rate:: 86-100 Nutrition - 30-Day Assessment Weight Mgt (Other Care) Height: 6 ft Weight:: 202 lb BMI: 27.3 Nutrition - 60-Day Assessment Weight Mgt (Other Care) Height: 6 ft Weight:: 202 lb BMI: 27.3 Core - 30-Day Assessment Visit Session #:: 0 (Pre-program evaluation) Core - Final Assessment Hypertension Resting Blood Pressure:: 147/83 (Goal is to have patient resting BP <130/80) [place] [employer] Hypertension Guidelines Core - 60-Day Assessment Hypertension Resting Blood Pressure:: 147/83 (Goal is to have patient resting BP <130/80) [place] [employer] Hypertension Guidelines Psychosocial - 30-Day Assess Target Goals Target Goals Referral to Behavioral Health PS - Interventions: Yes: Attend Stress Management Classes and No: Referral to Behavioral Health if PHQ-9 score >9:, No: Referral to [facility] and No: Referral to Physician if PHQ-9 if score is 5-9: Psychosocial - 60-Day Assess Target Goals Target Goals Referral to Behavioral Health PS - Interventions: Yes: Attend Stress Management Classes and No: Referral to Behavioral Health if PHQ-9 score >9:, No: Referral to [facility] and No: Referral to Physician if PHQ-9 if score is 5-9: Psychosocial - 90-Day Assess Target Goals Target Goals Referral to Behavioral Health PS - Interventions: Yes: Attend Stress Management Classes and No: Referral to Behavioral Health if PHQ-9 score >9:, No: Referral to [facility] and No: Referral to Physician if PHQ-9 if score is 5-9: Psychosocial - Final Assessmen Target Goals Target Goals Referral to Behavioral Health PS - Interventions: Yes: Attend Stress Management Classes and No: Referral to Behavioral Health if PHQ-9 score >9:, No: Referral to [facility] and No: Referral to Physician if PHQ-9 if score is 5-9: Nutrition - 90-Day Assessment Weight Mgt (Other Care) Height: 6 ft Weight:: 202 lb BMI: 27.3 Nutrition - Final Assessment Program Goals Patient has diagnosis of Hyperlipidemia (ICD E78)?: Yes Weight Mgt (Other Care) Height: 6 ft Weight:: 202 lb BMI: 27.3
[2023-11-27 09:17] VITALS: BP 147/83
[2023-11-27 09:22] VITALS: BP 147/83; BMI 27.3
[2023-11-27 09:32] VITALS: BP 147/83; PULSE 79; RESP 14; TEMP 37.1; O2SAT 96; BMI 27.3
== END | disposition home or self-care (01) ==
LOC: CR 09:01
PROVIDERS: PCP Family Medicine; Referring Provider Internal Medicine Cardiovascular Disease; Visit Provider Internal Medicine Cardiovascular Disease
DX: Z95.5 Presence of coronary angioplasty implant and graft (principal); M06.9 Rheumatoid arthritis, unspecified; I48.92 Unspecified atrial flutter; E11.40 Type 2 diabetes mellitus with diabetic neuropathy, unspecified; I10 Essential (primary) hypertension; M19.90 Unspecified osteoarthritis, unspecified site; I25.10 Atherosclerotic heart disease of native coronary artery without angina pectoris; R53.81 Other malaise; N40.0 Benign prostatic hyperplasia without lower urinary tract symptoms; K22.2 Esophageal obstruction; K21.9 Gastro-esophageal reflux disease without esophagitis; Z86.39 Personal history of other endocrine, nutritional and metabolic disease; Z86.73 Personal history of transient ischemic attack (TIA), and cerebral infarction without residual deficits; E78.5 Hyperlipidemia, unspecified; E83.42 Hypomagnesemia; E87.1 Hypo-osmolality and hyponatremia; D50.9 Iron deficiency anemia, unspecified; I51.7 Cardiomegaly; M62.838 Other muscle spasm; G62.9 Polyneuropathy, unspecified; I49.3 Ventricular premature depolarization; K27.9 Peptic ulcer, site unspecified, unspecified as acute or chronic, without hemorrhage or perforation; R55 Syncope and collapse; Z98.890 Other specified postprocedural states; Z96.649 Presence of unspecified artificial hip joint; Z96.651 Presence of right artificial knee joint; Z90.49 Acquired absence of other specified parts of digestive tract; R06.02 Shortness of breath; R53.83 Other fatigue

== ENCOUNTER 2023-12-19 11:30 | Outpatient (RCR) | payer MEDICARE, SELFPAY ==
[2023-11-27 09:22] VITALS: BMI 27.3
== END 2023-12-19 23:59 ==
LOC: CR 11:30
PROVIDERS: PCP Family Medicine; Referring Provider Specialist; Visit Provider Specialist
DX: Z95.5 Presence of coronary angioplasty implant and graft (principal); I21.3 ST elevation (STEMI) myocardial infarction of unspecified site; I25.10 Atherosclerotic heart disease of native coronary artery without angina pectoris
CPT/HCPCS: 93798

== ENCOUNTER 2024-01-09 11:30 | Outpatient (RCR) | payer MEDICARE, SELFPAY ==
[2023-11-27 09:22] VITALS: BMI 27.3
--- NOTE | 2023-12-26 08:27 | PCM.CR.ITP ---
Exercise - Initial Assessment Visit Session #:: 9 Physician Prescribed Exercise Modalities: SciFit Stepper and SciFit Pro-II Ergometer Nutrition - Initial Assessment Weight Mgt (Other Care) Height: 6 ft Weight:: 206 lb BMI: 27.9 Psychosocial - Initial Assess Target Goals Target Goals Referral to Behavioral Health PS - Interventions: Yes: Attend Stress Management Classes and No: Referral to Behavioral Health if PHQ-9 score >9:, No: Referral to [facility] and No: Referral to Physician if PHQ-9 if score is 5-9: Patient Health Questionnaire PHQ-9 Screening 30-Day Re-eval Assessment: 1. Little interest or pleasure in doing things: Not at all 2. Feeling down, depressed, or hopeless: Not at all 3. Trouble falling or staying asleep, or sleeping too much: Not at all 4. Feeling tired or having little energy: Several days 5. Poor appetite or overeating: Not at all 6. Feeling bad about yourself -- or that you are a failure or have let yourself or your family down: Not at all 7. Trouble concentrating on things, such as reading the newspaper or watching television: Not at all 8. Moving or speaking so slowly that other people could have noticed. Or the opposite - being so fidgety or restless that you have been moving around a lot more than usual: Not at all 9. Thoughts that you would be better off , or of hurting yourself in some way: Not at all How difficult have these problems made it for you to do your work, take care of things at home, or get along with other people?: Not difficult at all Total Score: 1 Self-Efficacy 6-Item Scale 30-Day Re-eval Assessment: We would like to know how confident you are in doing certain activities. Please select your confidence level for: Fatigue Select Number: 5 Physical Discomfort or Pain Select Number: 5 Emotional Distress Select Number: 8 Other Symptoms or Health Problems Select Number: 5 Different Tasks and Activities Select Number: 8 Medication Select Number: 7 Total Score:: 6 Nutrition Survey Nutrition Survey Instructions Scoring Instructions Exercise - 30-day Assessment Visit Date of Eval: 12/26/23 Session #:: 9 Physician Prescribed Exercise Modalities: SciFit Stepper and SciFit Pro-II Ergometer Frequency: 3x/week for 12 weeks [36 sessions] Intensity: 60-80% of age predicted maximum heart rate reserve Duration: 30 - 45 minutes Current METSs:: 3.0 Target Heart Rate:: 86-100 Current RPE:: 12-13 Maximum Excercise HR:: 70 Resting Blood Pressure: 120/90 Maximum Exercise Blood Pressure: 144/92 EKG Type: A-flutter/BBB w/ rare occasional PVCs Current Physical Activity or Exercising minutes: 39:12 Outcomes & Goals Goals:: Verbalizes understanding of THR, RPE & goal METS by session 6, Documents in home exercise log/reports 30 min aerobic 5 day/wk by DC and Demonstrates accurate pulse taking by DC Intervention & Plan Exercise Program Goals: Instruct on personal THR & RPE, Instruct on MET level & personal MET goal, Show patient to take own pulse /validate performance until accurate and Instruct on home exercise 30-day Reassessments 30 day Reassessments:: Progressing Physical Activity Home Exercise Physical Activity - Home Exercise: Safe Exercise, Warm-up, Self-monitoring, Cool-Down, Home Exercise > 30 min Daily and Sitting Time <3 hours/daily Outcomes & Goals Outcomes/Goals: Demonstrates correct Warm-up/exercise Cool-Down (S3) if = 2.5 METs, Verbalizes symptoms of exercise intolerance by Session 3 (S3) and Demonstrate safe equipment use (S3) & follows exercise prescrition (6) Intervention & Plan Plan/Intervention: Instruct warm-up & cool-down if exercising at > 2 METs, Instruct on symptoms of exercise intolerance & actions to take, Instruct & monitor on saf and Assess intial functional capacity & safety risk 30-day Reassessments 30 day Reassessments:: Progressing Exercise - 60-day Assessment Physician Prescribed Exercise Modalities: SciFit Stepper and SciFit Pro-II Ergometer Exercise - 90-day Assessment Physician Prescribed Exercise Modalities: SciFit Stepper and SciFit Pro-II Ergometer Exercise - Final/Discharge Physician Prescribed Exercise Modalities: SciFit Stepper and SciFit Pro-II Ergometer Nutrition - 30-Day Assessment Program Goals Nutrition Program Goals Patient has diagnosis of Hyperlipidemia (ICD E78)?: Yes Visit Date of Eval: 12/26/23 Session #:: 9 Cholesterol/Lipids (Other Core Measures) Triglycerides (mg/dL): 57 Total Cholesterol (mg/dL): 132 LDL Cholesterol (mg/dL): 83 HDL Cholesterol (mg/dL): 38 Determine presence & major risk factors that modify LDL goal: Hypertension or hypertensive medication, Low HDL cholesterol <40 mg/dL* and Age men > 45 years; women >/= 55 years Outcomes/Goals: Pt IDs own risk factors & lifestyle modifications by Session 10, Verbalizes symptoms of angina & response by session 3. and Pt independently manages Intervention/Plan: Instruct on personal lipid levels & lipid goals/NCEP guidelines and Instruct on cholesterol Referral to dietitian:: Yes 30-day Reassessments:: Progressing Diabetes (Other Core Measures) Diabetes Type: Diagnosis Type II ICD-10 E11 Insulin dependent injection/pump?: Yes Non-Insulin Dependent?: Yes Do you monitor your blood sugar at home?: Yes Referral to Diabetic Clinic:: Yes Outcomes/Goals:: Able to state symptoms of, Able to state and Able to state Intervention/Plan:: Instruct on, Refer to and Instruct on 30-day Reassessments:: Progressing Weight Mgt (Other Care) Not Applicable: Yes Height: 6 ft Weight:: 206 lb BMI: 27.9 Diagnosis Overweight/Obesity BMI> 30% ICD-10 E66: No Diagnosis High BMI/Morbid Obesity BMI> 35% ICD-10 Z68: No Outcomes/Goals: Pt sets, maintains & shows weight loss goal & trend during rehab Intervention/Plan: Instruct on ideal BMI & set weight loss goal w/patient 30 day Reassessments:: Met Healthy Eating Habits Will attend diet classes:: Yes Outcomes/Goals:: Consume diet rich in vegs,fruits,whole grain/high fiber,fish,lean meat and Limit sat/trans fats,cholesterol & added salts & sugars Intervention/Plan:: Assess current eating habits 30-day Reassessments:: Progressing Education Gave educational materials for:: Signs & symptoms of hypoglycemia, Signs & symptoms of hyperglycemia, Relate diabetes to coronary artery disease and Healthy eating Nutrition - 60-Day Assessment Weight Mgt (Other Care) Height: 6 ft Weight:: 206 lb BMI: 27.9 Core - 30-Day Assessment Visit Date of Eval: 12/26/23 Session #:: 9 Medication Compliance Preventative Medication(s):: Aspirin, Clopidogrel/P2Y12 inhibit, Statin/lipid, Beta nolberto and Eliquis H/O mental health issues: depression, anxiety, or addiction?: No Doesn?t believe in the benefits of treatment?: No Believes medications are unnecessary or harmful?: No Has a concern about medication side effects?: No Expresses concern over the cost of medications?: No Outcomes/Goals: Verbalizes medications,desired effect & common side effects @ DC, Pt self-reports following medication regimen and Keeps card in wallet w/medications listed by DC Interventions/plans: Instruct on medication effects & side effects, Review medication list w/patient every two weeks and Instruct importance of taking meds as ordered & assist problem solving 30-day Reassessments:: Progressing Tobacco Use Tobacco Use: Non-smoker Hypertension Hypertension Diagnosis:: Hypertension ICD-10 I10 Resting Blood Pressure:: 120/90 [employer] Hypertension Guidelines Peak Exercise Blood Pressure:: 144/92 Outcomes/Goals: Able to verbalize/achieve optimal blood pressure <130/80 and Incorporates diet changes & exercise for blood pressure control by DC Interventions/plan: Instruct on optimal blood pressure, hypertension & medications and Instruct on effects of sodium, alcohol, stress, exercise &hypertension 30 day Reassessments:: Met Tobacco Cessation Referral Smoking Cessation Referral:: No Individual Education/Counseling:: No Education Schedule Given:: Yes Psychosocial - 30-Day Assess VIsit Date of Eval: 12/26/23 Session #:: 9 Not Applicable: Yes History of previous Mental disease:: No Target Goals Target Goals Psychosocial Test Tool Used:: PHQ-9 Questionnaire phq-9 Severity Referral to Behavioral Health PS - Interventions: Yes: Attend Stress Management Classes and No: Referral to Behavioral Health if PHQ-9 score >9:, No: Referral to [facility] and No: Referral to Physician if PHQ-9 if score is 5-9: Outcomes/Goals: See list Psychosocial Outcomes/Goals:: ID's personal stressors & 2 strategies to manage stress by discharge Intervention/Plan: See List Interventions/Plan:: Assess stressors,coping strategies & signs of derpression on admission, Instruct/assist pt to develop coping & personal stress Mgt strategies, Instruct patient to recognize signs & symptoms of depression and Instruct patient to recog 30-day Reassessments: 30 day Reassessments:: Progressing Psychosocial - 60-Day Assess Target Goals Target Goals Referral to Behavioral Health PS - Interventions: Yes: Attend Stress Management Classes and No: Referral to Behavioral Health if PHQ-9 score >9:, No: Referral to [facility] and No: Referral to Physician if PHQ-9 if score is 5-9: Outcomes/Goals: See list Psychosocial Outcomes/Goals:: ID's personal stressors & 2 strategies to manage stress by discharge Psychosocial - 90-Day Assess Target Goals Target Goals Referral to Behavioral Health PS - Interventions: Yes: Attend Stress Management Classes and No: Referral to Behavioral Health if PHQ-9 score >9:, No: Referral to [facility] and No: Referral to Physician if PHQ-9 if score is 5-9: Psychosocial - Final Assessmen Target Goals Target Goals Referral to Behavioral Health PS - Interventions: Yes: Attend Stress Management Classes and No: Referral to Behavioral Health if PHQ-9 score >9:, No: Referral to [facility] and No: Referral to Physician if PHQ-9 if score is 5-9: Nutrition - 90-Day Assessment Weight Mgt (Other Care) Height: 6 ft Weight:: 206 lb BMI: 27.9 Nutrition - Final Assessment Weight Mgt (Other Care) Height: 6 ft Weight:: 206 lb BMI: 27.9
[2023-12-26 08:30] VITALS: BP 120/90
[2023-12-26 08:36] VITALS: BP 120/90; BMI 27.9
== END 2024-01-18 23:59 ==
LOC: CR 11:30
PROVIDERS: PCP Family Medicine; Referring Provider Specialist; Visit Provider Specialist
DX: Z95.5 Presence of coronary angioplasty implant and graft (principal); I21.3 ST elevation (STEMI) myocardial infarction of unspecified site; I25.10 Atherosclerotic heart disease of native coronary artery without angina pectoris
CPT/HCPCS: 93798